=== PATIENT | male | born 1965 | race Caucasian/White ===

== ENCOUNTER 2016-06-12 09:34 | Outpatient (CLI) | payer BC ==
[~2016-06-12] VITALS: Ht 180.3 cm; Wt 125.5 kg
[~2016-06-12 09:34] MED LIST: ASPI-664 PO; ATOR40TA68 PO; CARV3.12 PO; FURO20TA3 PO; LISI2.5T59 PO; MIRT45TA PO; PANT40TA4 PO; QUET300T13 PO
[2016-06-12 09:38] VITALS: BP 122/78; PULSE 80; RESP 18; Ht 180.3 cm; Wt 125.5 kg
--- NOTE | 2016-06-12 11:51 | CONS ---
Date/Time of Note Date/Time of Note DATE: 06/12/16 TIME: 10:26 Assessment/Plan Assessment/Plan Additional Assessment/Plan [facility] Initial Consultation Note DATE OF CONSULTATION: 06/12/16 PLACE OF SERVICE: [facility] ASSESSMENT AND PLAN: A very pleasant 50-year-old gentleman, well known to me from his initial and only other visit with us on 06/08/2014 for management of possible gallbladder disease in the setting of ETOH and hep C cirrhosis (no surgery at that time and GB still in place), presenting with a clinical picture worrisome for HCC given rise in AFP as well as his MRI findings. I carefully reviewed all the available data and reasoning behind my concerns, options of treatment including surgical resection, consideration for liver transplant, local therapy (TACE, radioembolization, ablative therapies, etc), and systemic chemotherapy. Answered all of patient's and 's questions and I believe they understand and wish to proceed. With above assessment, I recommended the followin. Schedule for laparoscopic, possible open, partial hepatectomy, possible cholecystectomy, with intraoperative ultrasound and possible biopsy 2. Start process for possible TACE in case surgery not an option 3. Start liver transplant evaluation process 4. Oncology consultation 5. Multidisciplinary tumor board presentation 6. Preop clearance with cardiology and pulmonary (cardiac testing and pulmonary PFT's and possibly more, depending on findings) 7. Possible endoscopy needs for elevated CEA 8. F/u with Dr. Washington Thank you again for allowing us to participate in the care of this very pleasant gentleman and his wonderful family. If there are any questions, please feel free to call me at [phone]. Updated Clinical Summary: The patient is a very pleasant 50-year-old gentleman, well known to me from his initial and only other visit with us on 06/08/2014 for management of possible gallbladder disease in the setting of ETOH and hep C cirrhosis, initially diagnosed in June 2013 with his hematemesis. Endoscopic gastroduodenoscopy done by Dr. Sim in October of 2013 showed 2+ esophageal varices. He also had a low platelet count in the 70s in 2014, but higher in 2017 (164 on 03/20/16). His other comorbid issues included COPD, previous pneumonia admissions, bronchospasms, gastritis, a number of neurologic and psychiatric issues including schizophrenia, anxiety and depression, and known cholelithiasis. Rising AFP (13 10/2015; 243.2 03/20/16; 555.9 04/17/16). US abd 02/07/16: Cholelithiasis with normal CBD. Hepatomegaly with mild/mod fatty infiltration ( no mention of mass). CT abd w/wo contrast 04/11/16: Liver cirrhosis w/o suspicious arterial enhancing lesion with patent PV. Recanalization of the para- umbilical vein, and cholelithiasis. MRI abd w/wo contrast 06/04/16: Subtle infiltrative approximately 4 cm mass lesion in the anterior inferior aspect of segment 4a, c/w early HCC. + weight loss (20 lbs) and fatigue June 2016. Comorbidities: 1. Known cholelithiasis at least since middle 2013. Questionable gallbladder wall thickening was noted 08/27/2013 and is again seen 04/20/2014. Recanalized umbilical vein with thrombocytopenia, esophageal varices, history of hematemesis, but normal appearing spleen, normal varices on the CT scan and liver that was only abnormal for fatty liver disease on the images, all thought to be cirrhosis from alcohol abuse in the past. 2. Anxiety. 3. Depression. 4. Bipolar disorder. 5. Hypertension. 6. Prior alcohol abuse. 7. Prior recent pneumonias. 8. Gastritis. 9. Skin rash. 10. Urinary symptoms requiring Ghosh catheter placement. 11. COPD. 12. Diastasis recti. 13. Coronary artery disease. 14. BMI 38.6 15. Possible history of hepatitis C where the patient was told he has it, but recent HCV, RNA, PCR was not detected. 16. 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 17. Elevated CA 19-9 (166 04/17/16) 18. Hep C 19. Elevated CEA (8.5 on 04/17/16) 20. Hep A immune 22. Insomnia 23. Chronic ischemic heart disease 24. Mention of Schizophrenia in the chart HISTORY OF PRESENT ILLNESS: Patient is a very pleasant 50 y/o gentleman with above mentioned comorbidities and history whom we were kindly asked to consult regarding management of his newly discovered mass in seg 4a concerning for HCC. I had a chance to meet him as well as his today in the office and do a complete history and physical myself. I also gathered some of my information through the review of the chart. The patient reports having no sig abdominal pain. No other major symptoms other than 20 lb wt loss (unintentional) and fatigue. ALLERGIES: NO KNOWN DRUG ALLERGIES. MEDICATIONS: 1. Seroquel 2. Atenolol 3. ASA 4. Lasix 5. Carvedilol 6. Lisinopril 7. Mirtazapine SOCIAL HISTORY: Patient was born in [place], is and has 1 child. Currently, he is not working due to psychiatric disability. He has smoked every day and has been a heavy smoker, approximately 20 to 39 cigarettes per day in 2014; 1 2016. He does not report any intravenous drug use and he used to drink quite a bit, quit in July of 2013. His heavy drinking was approximately 8 years in duration until he quit. FAMILY HISTORY: There is no significant family history of liver disease, cirrhosis or other gastrointestinal benign or malignant issues. REVIEW OF SYSTEMS: Other than above mentioned, there are no other pertinent positives or pertinent negatives in an otherwise complete 14-point review of systems. PHYSICAL EXAMINATION: GENERAL: The patient appears to be a very pleasant gentleman of descent, appearing stated age, slightly anxious, but otherwise in no acute distress. VITAL SIGNS: AVSS (see EHR); BMI of 38.6 (previously 36.15 May 2014). HEENT: Normocephalic and atraumatic. His extraocular muscles and hearing are grossly intact bilaterally and symmetrically. His sclerae are nonicteric. His oral cavity is clear, and his oral mucosa appeared to be pink and moist. He has relatively fair to poor dentition. NECK: Supple. There is no lymphadenopathy or JVD. There is no submental, submandibular or supraclavicular lymphadenopathy. CHEST: Rises symmetrically with each breath, and he is breathing comfortably. There are no audible wheezes, rales or rhonchi on the gross exam. His pulse is regular and slightly tachycardic on the left wrist. Carotid pulses are palpable bilaterally and symmetrically. His capillary refill is normal and his lower extremities contain very minimally trace edema on both sides. ABDOMEN: Soft, nontender and nondistended. There is no obvious Fraga sign. There is slight discomfort to deep palpation in the left mid quadrant and less so in the right mid quadrant. There are no peritoneal signs or guarding. SKIN: Appears to be pink and feels warm to touch otherwise. NEUROLOGIC: He is awake, alert, and follows commands appropriately. LABORATORY DATA: See office chart for details. Important values reviewed above. 04/08/2014 shows a white blood cell count of 5.1, hemoglobin 14.0, platelets 77. Electrolytes are normal. CO2 of 20, creatinine 0.8, albumin 2.6, total bilirubin 1.2, AST 31, ALT 21, alkaline phosphatase 173. INR 1.2. Alpha fetoprotein 4.4, magnesium 1.7. He has been previously tested for HIV and those have been negative. Hepatitis B surface antigen and antibody were negative. Hepatitis B core antibody was negative. Hepatitis C antibody was reactive and this was on 01/22/2014. Review of his available platelet counts show it to be right in the 70s to 80s range and not above 100 in our available records. in 2017 in the mid 100's. IMAGING: See above. Also: CT from 08/05/2013 showed an enlarged liver, which was mildly nodular in contour. There were no discrete hepatic lesions seen, although the evaluation was limited secondary to motion artifact. No calcified gallstones were seen then, although there is nonspecific diffuse gallbladder wall edema. The main portal vein was patent and measured up to 13 mm in caliber. There were no intrahepatic or extrahepatic biliary ductal dilatation. There was small caliber recanalization of the periumbilical vein. The spleen was not thought to be enlarged and it was 9.4 cm. The pancreas appeared to be unremarkable. Overall, the patient was thought to have suggestive findings of cirrhosis and nonspecific gallbladder wall edema. Ultrasound of the right upper quadrant 04/20/2014 that showed again hepatomegaly with fatty infiltration of the liver, poorly visualized pancreas, abnormal gallbladder wall thickening to 8 mm, and calculus measuring 1.6 x 1.8 cm, borderline dilated common bile duct measuring 7 mm. Previous ultrasound from last year 08/27/2013 again showed thickening of the gallbladder wall without additional sonographic features of cholecystitis. Interestingly, gallstones were not seen on that ultrasound, although they were seen on the CT scan. Please note that I personally reviewed all the available pertinent images myself and I agree in general with their overall findings. Consultation Date/Type/Reason Admit Date/Time Exam/Review of Systems Vital Signs Vitals Vital Signs Date Time Temp Pulse Resp B/P Pulse Ox O2 Delivery O2 Flow Rate FiO2 5/3/17 09:38 97.7 80 18 122/78 94 Room Air MOISES WOODSON M.D. June 12, 2016 11:51
== END 2016-06-12 16:43 | disposition home or self-care (01) ==
LOC: HPC 09:34
PROVIDERS: ATTEND Transplant Surgery
DX: K70.30 Alcoholic cirrhosis of liver without ascites (principal); F31.9 Bipolar disorder, unspecified; J44.9 Chronic obstructive pulmonary disease, unspecified; I25.10 Atherosclerotic heart disease of native coronary artery without angina pectoris; B19.20 Unspecified viral hepatitis C without hepatic coma
CPT/HCPCS: G0463

== ENCOUNTER 2016-07-31 15:20 | Outpatient (CLI) | payer BC ==
[~2016-07-31] VITALS: Ht 180.3 cm; Wt 123.6 kg
[2016-07-31 15:26] VITALS: BP 118/77; PULSE 93; RESP 16; Ht 180.3 cm; Wt 123.6 kg
--- NOTE | 2016-07-31 16:52 | PN ---
Date/Time of Note Date/Time of Note DATE: 07/31/16 TIME: 16:44 Assessment/Plan Assessment/Plan Assessment/Plan [facility] Progress Note Date of Service: 07/31/16 Today's Impression & Plan: A very pleasant 51-year-old gentleman, well known to me from his initial and only other visit with us on 06/08/2014 for management of possible gallbladder disease in the setting of ETOH and hep C cirrhosis (no surgery at that time and GB still in place), presenting with a clinical picture worrisome for HCC given rise in AFP as well as his MRI findings. I had previously carefully reviewed all the available data and reasoning behind my concerns, options of treatment including surgical resection, consideration for liver transplant, local therapy (TACE, radioembolization, ablative therapies, etc), and systemic chemotherapy. After multidisciplinary tumor board presentation, the consensus of the group was agreement that patient is not a surgical candidate and that TACE and liver transplant evaluation should be done. I reviewed with them these recommendations and answered all of patient's and 's questions and I believe they understand and wish to proceed. They also told me that they were approved to go to [facility] for liver transplant evaluation. With above assessment, I recommended the followin. Continue with plans for TACE 2. Cont with liver transplant evaluation process 3. Oncology consultation 4. Continued multidisciplinary care 5. Possible endoscopy needs for elevated CEA 6. F/u with Dr. Washington Thank you again for allowing us to participate in the care of this very pleasant gentleman and his wonderful family. If there are any questions, please feel free to call me at [phone]. Updated Clinical Summary: The patient is a very pleasant 50-year-old gentleman, well known to me from his initial and only other visit with us on 06/08/2014 for management of possible gallbladder disease in the setting of ETOH and hep C cirrhosis, initially diagnosed in June 2013 with his hematemesis. Endoscopic gastroduodenoscopy done by Dr. Sim in October of 2013 showed 2+ esophageal varices. He also had a low platelet count in the 70s in 2014, but higher in 2017 (164 on 03/20/16). His other comorbid issues included COPD, previous pneumonia admissions, bronchospasms, gastritis, a number of neurologic and psychiatric issues including schizophrenia, anxiety and depression, and known cholelithiasis. Rising AFP (13 10/2015; 243.2 03/20/16; 555.9 04/17/16). US abd 02/07/16: Cholelithiasis with normal CBD. Hepatomegaly with mild/mod fatty infiltration ( no mention of mass). CT abd w/wo contrast 04/11/16: Liver cirrhosis w/o suspicious arterial enhancing lesion with patent PV. Recanalization of the para- umbilical vein, and cholelithiasis. MRI abd w/wo contrast 06/04/16: Subtle infiltrative approximately 4 cm mass lesion in the anterior inferior aspect of segment 4a, c/w early HCC. + weight loss (20 lbs) and fatigue June 2016. Comorbidities: 1. Known cholelithiasis at least since middle 2013. Questionable gallbladder wall thickening was noted 08/27/2013 and is again seen 04/20/2014. Recanalized umbilical vein with thrombocytopenia, esophageal varices, history of hematemesis, but normal appearing spleen, normal varices on the CT scan and liver that was only abnormal for fatty liver disease on the images, all thought to be cirrhosis from alcohol abuse in the past. 2. Anxiety. 3. Depression. 4. Bipolar disorder. 5. Hypertension. 6. Prior alcohol abuse. 7. Prior recent pneumonias. 8. Gastritis. 9. Skin rash. 10. Urinary symptoms requiring Ghosh catheter placement. 11. COPD. 12. Diastasis recti. 13. Coronary artery disease. 14. BMI 38.6 15. Possible history of hepatitis C where the patient was told he has it, but recent HCV, RNA, PCR was not detected. 16. 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 17. Elevated CA 19-9 (166 04/17/16) 18. Hep C 19. Elevated CEA (8.5 on 04/17/16) 20. Hep A immune 22. Insomnia 23. Chronic ischemic heart disease 24. Mention of Schizophrenia in the chart Subjective: No major events or complaints; no abd pain and under control with medications; no n/v/d; no sob or cp; + flatus; + BM and normal; + activity; trying to live healthier and has lost a few lbs (intentionally) Objective: Vitals: See below Exam: GENERAL: On exam, the patient was sitting in a chair and appeared to be comfortable and in no acute distress. BMI 38. ABDOMEN: Soft, nontender and nondistended. There are no peritoneal signs or guarding. SKIN: Skin appears to be pink and feels warm to touch. NEUROLOGIC: Patient is awake, alert, and follows commands appropriately. Exam/Review of Systems Vital Signs Vitals Vital Signs Date Time Temp Pulse Resp B/P Pulse Ox O2 Delivery O2 Flow Rate FiO2 07/31/16 15:26 98.0 93 16 118/77 95 Room Air MOIESS WOODSON M.D. Jul 31, 2016 16:52
== END 2016-07-31 16:27 | disposition home or self-care (01) ==
LOC: HPC 15:20
PROVIDERS: ATTEND Transplant Surgery
DX: K76.9 Liver disease, unspecified (principal); K70.30 Alcoholic cirrhosis of liver without ascites; I25.9 Chronic ischemic heart disease, unspecified; I25.10 Atherosclerotic heart disease of native coronary artery without angina pectoris; J44.9 Chronic obstructive pulmonary disease, unspecified; R63.4 Abnormal weight loss; Z68.38 Body mass index [BMI] 38.0-38.9, adult; F20.9 Schizophrenia, unspecified; F41.9 Anxiety disorder, unspecified; F32.9 Major depressive disorder, single episode, unspecified; Z87.01 Personal history of pneumonia (recurrent)
CPT/HCPCS: G0463

== ENCOUNTER 2016-10-28 09:37 | Outpatient (CLI) | payer BC ==
[~2016-10-28] VITALS: Ht 180.3 cm; Wt 116.4 kg
[2016-10-28 09:33] VITALS: BP 114/87; PULSE 89; RESP 18; Ht 180.3 cm; Wt 116.4 kg
--- NOTE | 2016-10-28 17:16 | PN ---
Date/Time of Note Date/Time of Note DATE: 10/28/16 TIME: 16:33 Assessment/Plan Assessment/Plan Assessment/Plan [facility] Progress Note Date of Service: 10/28/16 Today's Impression & Plan: Overall stable with hepatocellular carcinoma of what would believe to be the left lobe of the liver with complication of significant elevation in alpha- fetoprotein as well as recently discovered left portal vein thrombosis in the setting of alcohol induced and hepatitis C induced cirrhosis. Since the patient 's platelet count has reached 200 and given the 8 weeks since the patient's TACE procedure at [facility], I have recommended that we consider surgical evaluation of his abdomen with a full understanding that there is perhaps less than 10% chance of successful completion of the operation and that there is significant chance that we would have to abort the operation at any time during this procedure. Plan would be to enter laparoscopically and do an intraoperative ultrasound of the liver, look at the distribution of the mass intraoperatively as well as assess for presence of metastatic disease. There may be need for biopsying the liver which we can do intra-operatively and if all the needed components are there, to proceed with surgical resection and removal of left side of the liver. I explained all of this in detail to the patient and his and answered all of their questions. Patient and family appear to understand and agreed with plans. Previous assessment that applies today: A very pleasant 51-year-old gentleman, well known to me from his initial visit with us on 06/08/2014 for management of possible gallbladder disease in the setting of ETOH and hep C cirrhosis (no surgery at that time and GB still in place), presenting with a clinical picture worrisome for HCC given rise in AFP as well as his MRI findings. I had previously carefully reviewed all the available data and reasoning behind my concerns, options of treatment including surgical resection, consideration for liver transplant, local therapy (TACE, radioembolization, ablative therapies, etc), and systemic chemotherapy. After multidisciplinary tumor board presentation, the consensus of the group was agreement that patient is not a surgical candidate and that TACE and liver transplant evaluation should be done. I reviewed with them these recommendations and answered all of patient's and 's questions and I believe they understand and wish to proceed. They also told me that they were approved to go to [facility] for liver transplant evaluation (evaluation started July 2016). With above assessment, I recommended the followin. Schedule for laparoscopic, possible open exploration of abdominal cavity with intraoperative ultrasound of the liver, possible biopsy, and possible partial hepatectomy Thank you again for allowing us to participate in the care of this very pleasant gentleman and his wonderful family. If there are any questions, please feel free to call me at [phone]. Updated Clinical Summary: The patient is a very pleasant 51-year-old gentleman, well known to me from his initial and only other visit with us on 06/08/2014 for management of possible gallbladder disease in the setting of ETOH and hep C cirrhosis, initially diagnosed in June 2013 with his hematemesis. Endoscopic gastroduodenoscopy done by Dr. Sim in October of 2013 showed 2+ esophageal varices. He also had a low platelet count in the 70s in 2014, but higher in 2017 (164 on 03/20/16). His other comorbid issues included COPD, previous pneumonia admissions, bronchospasms, gastritis, a number of neurologic and psychiatric issues including schizophrenia, anxiety and depression, and known cholelithiasis. Rising AFP (13 10/2015; 243.2 03/20/16; 555.9 04/17/16). US abd 02/07/16: Cholelithiasis with normal CBD. Hepatomegaly with mild/mod fatty infiltration ( no mention of mass). CT abd w/wo contrast 04/11/16: Liver cirrhosis w/o suspicious arterial enhancing lesion with patent PV. Recanalization of the para- umbilical vein, and cholelithiasis. MRI abd w/wo contrast 06/04/16: Subtle infiltrative approximately 4 cm mass lesion in the anterior inferior aspect of segment 4a, c/w early HCC. + weight loss (20 lbs) and fatigue June 2016. Status post Rylee TACE via RCFA access with coiling of GDA at [facility] ( Dr. Renan Hogan) 08/21/16. CT abd/pelvis [facility] 10/22/16: enlarging worsening infiltrated HCC within L lobe of liver with large associated L intrahepatic portal vein thrombus, worse over time. ? lymphadenopathy in the abdominal cavity. Comorbidities: 1. Known cholelithiasis at least since middle 2013. Questionable gallbladder wall thickening was noted 08/27/2013 and is again seen 04/20/2014. Recanalized umbilical vein with thrombocytopenia, esophageal varices, history of hematemesis, but normal appearing spleen, normal varices on the CT scan and liver that was only abnormal for fatty liver disease on the images, all thought to be cirrhosis from alcohol abuse in the past. Transplant evaluation at [facility] started summer 2016. 2. Anxiety. 3. Depression. 4. Bipolar disorder. 5. Hypertension. 6. Prior alcohol abuse. 7. Prior recent pneumonias. 8. Gastritis. 9. Skin rash. 10. Urinary symptoms requiring Ghosh catheter placement. 11. COPD. 12. Diastasis recti. 13. Coronary artery disease. 14. BMI 35.8 (previously 38.6 early 2016) 15. Possible history of hepatitis C where the patient was told he has it, but recent HCV, RNA, PCR was not detected. 16. 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 17. Elevated CA 19-9 (166 04/17/16) 18. Hep C 19. Elevated CEA (8.5 on 04/17/16) 20. Hep A immune 22. Insomnia 23. Chronic ischemic heart disease. Dr. Combs deemed the patient low to intermediate risk of cardiac events admit liver surgery and did not recommend further cardiac studies or interventions 06/19/2016 24. Mention of Schizophrenia in the chart 25. Severe obstructive sleep apnea with an overall AHI of 31 power resulting oxygen saturation dropped from a baseline of 94% to a low of 80%; successful CPAP titration at 7 cm of water. Study was found to be abnormal and there was loud snoring. 08/16/2016 (Dr. Kalia Angel) 26. Status post Rylee TACE via RCFA access with coiling of GDA at [facility] (Dr. Renan Hogan) 08/21/16. Subjective: No major events or complaints; no major abd pain and under control with medications; no n/v/d; no sob or cp; + flatus; + BM and normal; + activity Objective: Vitals: See below Exam: GENERAL: On exam, the patient was sitting in a chair and appeared to be comfortable and in no acute distress. BMI 35.8. ABDOMEN: Soft, nontender and nondistended. There are no peritoneal signs or guarding. SKIN: Skin appears to be pink and feels warm to touch. NEUROLOGIC: Patient is awake, alert, and follows commands appropriately. Exam/Review of Systems Vital Signs Vitals Vital Signs Date Time Temp Pulse Resp B/P Pulse Ox O2 Delivery O2 Flow Rate FiO2 10/28/16 09:33 97.6 89 18 114/87 97 Room Air MOISES WOODSON M.D. Oct 28, 2016 17:16
== END 2016-10-28 16:13 | disposition home or self-care (01) ==
LOC: HPC 09:37
PROVIDERS: ATTEND Transplant Surgery
DX: C22.0 Liver cell carcinoma (principal); F41.9 Anxiety disorder, unspecified; F32.9 Major depressive disorder, single episode, unspecified; F31.9 Bipolar disorder, unspecified; J44.9 Chronic obstructive pulmonary disease, unspecified; I25.10 Atherosclerotic heart disease of native coronary artery without angina pectoris; B19.20 Unspecified viral hepatitis C without hepatic coma; G47.33 Obstructive sleep apnea (adult) (pediatric)
CPT/HCPCS: G0463

== ENCOUNTER 2016-12-26 12:42 | Inpatient (IN) | payer BC ==
[~2016-12-26] VITALS: Ht 180.3 cm; Wt 113.1 kg
[2016-12-26] MEDS ORDERED: ONDANSETRON 4 MG INJ IV STA (13:22)
[2016-12-26] MEDS ORDERED: morphine 4 MG/ML VIAL IV STA (13:22)
[2016-12-26] MEDS ORDERED: SOD CHLORIDE 0.9% 1,000 ML IV STA (13:22)
[2016-12-26 13:40] LABS: BASOPHILS % 0.2 % (0.0-2.0); EOSINOPHILS # 0.2 10^3/ul (0.0-0.5); EOSINOPHILS % 1.2 % (0.0-7.0); HEMATOCRIT 46.9 % (42.0-52.0); HEMOGLOBIN 16.1 g/dl (14.0-18.0); LYMPHOCYTES # 1.7 10^3/ul (0.8-2.9); LYMPHOCYTES % 13.7 % (15.0-51.0); MEAN CORPUSCULAR HEMOGLOBIN 29.9 pg (29.0-33.0); MEAN CORPUSCULAR HGB CONC 34.3 g/dl (32.0-37.0); MEAN CORPUSCULAR VOLUME 87.2 fl (82.0-101.0); MEAN PLATELET VOLUME 9.8 fl (7.4-10.4); MONOCYTE # 1.1 10^3/ul (0.3-0.9); MONOCYTES % 8.6 % (0.0-11.0); NEUTROPHIL # 9.3 10^3/ul (1.6-7.5); NEUTROPHILS % 75.8 % (39.0-77.0); PLATELET COUNT 258 10^3/UL (140-415); RED BLOOD COUNT 5.38 10^6/ul (4.70-6.10); RED CELL DISTRIBUTION WIDTH 14.9 % (11.5-14.5); WHITE BLOOD COUNT 12.3 10^3/ul (4.8-10.8)
--- NOTE | 2016-12-26 13:49 | ERD ---
ER Documentation Chief Complaint Chief Complaint pt bib with c/o abd pain x 3 wks ROS All systems reviewed and are negative except as per history of present illness. Medications Home Meds Reported Medications Quetiapine Fumarate* (Quetiapine Fumarate*) 200 Mg Tablet, 200 MG PO HS, TAB 12/26/16 Quetiapine Fumarate* (Quetiapine Fumarate*) 400 Mg Tablet, 800 MG PO HS, TAB 12/26/16 Aspirin (Low Dose Aspirin) 81 Mg Tablet.dr, 81 MG PO DAILY, #30 TAB 01/30/16 Pantoprazole* (Pantoprazole*) 40 Mg Tablet.dr, 40 MG PO AC BREAKFAST, TAB 01/30/16 Mirtazapine (Mirtazapine) 45 Mg Tab.rapdis, 45 MG PO QHS 01/02/16 Lisinopril* (Lisinopril*) 2.5 Mg Tablet, 2.5 MG PO DAILY, #30 TAB 03/07/15 Carvedilol* (Coreg*) 3.125 Mg Tablet, 3.125 MG PO BID, #60 TAB 03/07/15 Atorvastatin* (Atorvastatin*) 40 Mg Tablet, 40 MG PO QHS, #30 TAB 03/07/15 Discontinued Reported Medications Quetiapine Fumarate* (Seroquel*) 300 Mg Tablet, 300 MG PO DAILY, TAB 01/30/16 Furosemide* (Furosemide*) 20 Mg Tablet, 20 MG PO BID, #30 TAB 03/07/15 Allergies Allergies: Coded Allergies: No Known Allergy (Unverified , 01/30/16) PMhx/Soc History of Surgery: Yes Anesthesia Reaction: No Hx Neurological Disorder: No Hx Respiratory Disorders: No Hx Cardiac Disorders: No Hx Psychiatric Problems: No Hx Miscellaneous Medical Probl: No Hx Alcohol Use: No Hx Substance Use: No Hx Tobacco Use: No Physical Exam Vitals Vital Signs Date Time Temp Pulse Resp B/P Pulse Ox O2 Delivery O2 Flow Rate FiO2 12/26/16 18:40 94 19 120/84 95 Room Air 12/26/16 16:52 102 18 113/78 97 Room Air 12/26/16 12:45 97.7 97 16 112/76 98 Physical Exam Const: [] Mild to moderate distress Head: Atraumatic Eyes: Normal Conjunctiva ENT: Normal External Ears, Nose and Mouth except except dragon say the word except for dried blood on lower face. Neck: Full range of motion..~ No meningismus. Resp: Clear to auscultation bilaterally Cardio: Regular rate and rhythm, no murmurs Abd: Soft, mild to moderate tenderness to palpation o of the epigastrium, normal bowel sounds, nondistended s Skin: No petechiae or rashes Back: No midline or flank tenderness Ext: No cyanosis, or edema Neur: Awake and alert 3, no focal deficits Psych: Normal Mood and Affect Result Diagram: 12/26/16 1322 12/26/16 1322 Results 24 hrs Laboratory Tests Test 12/26/16 13:22 12/26/16 15:20 White Blood Count 12.310^3/ul Red Blood Count 5.3810^6/ul Hemoglobin 16.1g/dl Hematocrit 46.9% Mean Corpuscular Volume 87.2fl Mean Corpuscular Hemoglobin 29.9pg Mean Corpuscular Hemoglobin Concent 34.3g/dl Red Cell Distribution Width 14.9% Platelet Count 56950^3/UL Mean Platelet Volume 9.8fl Neutrophils % 75.8% Lymphocytes % 13.7% Monocytes % 8.6% Eosinophils % 1.2% Basophils % 0.2% Nucleated Red Blood Cells % 0.0/100WBC Neutrophils # 9.310^3/ul Lymphocytes # 1.710^3/ul Monocytes # 1.110^3/ul Eosinophils # 0.210^3/ul Basophils # 0.010^3/ul Nucleated Red Blood Cells # 0.010^3/ul Sodium Level 137mmol/L Potassium Level 5.2mmol/L Chloride Level 100mmol/L Carbon Dioxide Level 28mmol/L Anion Gap 14 Blood Urea Nitrogen 16mg/dl Creatinine 0.66mg/dl Glucose Level 111mg/dl Lactic Acid Level 1.4mmol/L Calcium Level 9.5mg/dl Total Bilirubin 0.7mg/dl Direct Bilirubin 0.00mg/dl Indirect Bilirubin 0.7mg/dl Aspartate Amino Transf (AST/SGOT) 61IU/L Alanine Aminotransferase (ALT/SGPT) 30IU/L Alkaline Phosphatase 153IU/L Troponin I < 0.012ng/ml Total Protein 8.2g/dl Albumin 3.8g/dl Globulin 4.40g/dl Albumin/Globulin Ratio 0.86 Lipase 2400U/L Urine Color YELLOW Urine Clarity CLEAR Urine pH 6.0 Urine Specific [place] > 1.060 Urine Ketones NEGATIVEmg/dL Urine Nitrite NEGATIVEmg/dL Urine Bilirubin NEGATIVEmg/dL Urine Urobilinogen 2+mg/dL Urine Leukocyte Esterase NEGATIVELeu/ul Urine Hemoglobin NEGATIVEmg/dL Urine Glucose NEGATIVEmg/dL Urine Total Protein NEGATIVEmg/dl Current Medications Medications (Trade) Dose Ordered Sig/Jerrod Route PRN Reason Start Time Stop Time Status Last Admin Dose Admin Sodium Chloride (NS) 1,000 ml @ 1,000 mls/hr Q1H STAT IV 12/26/16 13:22 12/26/16 14:21 DC 12/26/16 13:55 Morphine Sulfate (morphine) 4 mg ONCE STAT IV 12/26/16 13:22 12/26/16 13:24 DC 12/26/16 13:55 Ondansetron HCl (Zofran Inj) 4 mg ONCE STAT IV 12/26/16 13:22 12/26/16 13:24 DC 12/26/16 13:45 Hydromorphone HCl (Dilaudid) 1 mg ONCE STAT IV 12/26/16 14:08 12/26/16 14:09 DC 12/26/16 14:17 Iohexol 150 ml 150 ml STK-MED ONCE .ROUTE 12/26/16 14:32 12/26/16 14:33 DC 12/26/16 15:03 Sodium Chloride 100 ml @ ud STK-MED ONCE .ROUTE 12/26/16 14:32 12/26/16 14:33 DC 12/26/16 15:03 Sodium Chloride (NS) 1,000 ml @ 1,000 mls/hr Q1H ONCE IV 12/26/16 15:30 12/26/16 16:29 DC 12/26/16 15:53 Hydromorphone HCl 1 mg 1 mg ONCE STAT IV 12/26/16 15:08 12/26/16 15:09 DC 12/26/16 15:25 Sodium Chloride (NS) 1,000 ml @ 1,000 mls/hr Q1H ONCE IV 12/26/16 17:30 12/26/16 18:29 DC Heparin Sodium (Porcine) 5000 unit 5,000 unit ONCE STAT IV 12/26/16 17:33 12/26/16 17:35 DC 11/16/17 18:01 Heparin Sodium (Porcine) (Heparin 31436 Units/250 ml) 250 ml @ 0 mls/hr ONCE STAT IV 12/26/16 17:33 12/26/16 17:35 DC 12/26/16 18:01 Ondansetron HCl (Zofran Inj) 4 mg BRIDGE ORDER PRN IV NAUSEA AND/OR VOMITING 12/26/16 19:00 12/27/16 18:59 Acetaminophen (Tylenol Tab) 650 mg ER BRIDGE PRN PO MILD PAIN/FEVER 12/26/16 19:00 12/27/16 18:59 Hydromorphone HCl (Dilaudid) 1 mg ONCE STAT IV 12/26/16 20:01 12/26/16 20:02 DC 12/26/16 20:02 Procedures/MDM Pancreatitis and portal vein thrombosis. Severe abdominal pain initially treated with morphine followed by Dilaudid for pain relief. Required doses of Dilaudid as this would wear off he would had continued pain. Given 2 L of normal saline. Spoke with Dr. Cameron who will see the patient on consult. Also spoke with Dr. Jurado, recommended anticoagulation and he will see the patient on consult as well. Started the patient on heparin. Did have occasional tachycardia on the monitor. Otherwise the patient is being admitted in serious condition. Panel Dr. Kate will be admitting. CT abdomen pelvis interpretation: Inflammation surrounding the stomach pancreas and liver. Cirrhotic liver. Thrombosis of the portal vein, small mass in pancreas., No intestinal obstruction, no free air perforation, no fractures. Right upper quadrant ultrasound interpretation: Gallstones without evidence of ductal obstruction. Cirrhotic liver Departure Diagnosis: Primary Impression: Portal vein thrombosis Additional Impressions: Pancreatitis, acute Abdominal pain Condition: Serious PERLITA JAQUEZ DO Dec 26, 2016 13:49
[2016-12-26 13:58] LABS: ALANINE AMINOTRANSFERASE 30 IU/L (13-69); ALBUMIN 3.8 g/dl (3.3-4.9); ALBUMIN/GLOBULIN RATIO 0.86; ALKALINE PHOSPHATASE 153 IU/L (42-121); ANION GAP 14 (8-16); ASPARTATE AMINO TRANSFERASE 61 IU/L (15-46); BILIRUBIN,INDIRECT 0.7 mg/dl (0-1.1); BILIRUBIN,TOTAL 0.7 mg/dl (0.2-1.3); BLOOD UREA NITROGEN 16 mg/dl (7-20); CALCIUM 9.5 mg/dl (8.4-10.2); CARBON DIOXIDE 28 mmol/L (21-31); CHLORIDE 100 mmol/L (97-110); CREATININE 0.66 mg/dl (0.61-1.24); GLUCOSE 111 mg/dl (70-220); POTASSIUM 5.2 mmol/L (3.5-5.1); SODIUM 137 mmol/L (135-144); TOTAL PROTEIN 8.2 g/dl (6.1-8.1)
[2016-12-26] MEDS ORDERED: HYDROmorphONE 1 MG/ML SYG IV STA ×3 (14:08→20:01)
[2016-12-26 14:16] LABS: TROPONIN-I < 0.012 ng/ml (0.00-0.12)
[2016-12-26] MEDS ORDERED: QUET400T11 PO (14:27)
[2016-12-26] MEDS ORDERED: QUET200T27 PO (14:28)
[2016-12-26] MEDS ORDERED: SOD CHLORIDE 0.9% 100 ML ONE (14:32)
[2016-12-26] MEDS ORDERED: IOHEXOL 300MG/ML 150 ML BTL ONE (14:32)
--- NOTE | 2016-12-26 15:07 | RADRPT ---
PROCEDURE: CT ABDOMEN AND PELVIS WITH IV CONTRAST. CLINICAL INDICATION: Abdominal pain TECHNIQUE: CT scan of the abdomen and pelvis without contrast was performed on a multidetector hig h-resolution CT scanner following the use of IV contrast. Coronal and sagittal reformatted images we re obtained from the axial source images. Images were reviewed on a high-resolution PACS workstation . The total exam CTDI equals 22.5 mGy and the total exam DLP equals 1486 mGy-cm. One or more of the following dose reduction techniques were used: Automated exposure control. Adjustment of the mA and/or kV according to patient size. Use of iterative reconstruction technique. DICOM images are available. COMPARISON: US OUTSIDE STUDY 09/26/2015 FINDINGS: CT abdomen: Lung bases are clear. Heart size is within normal limits. There is no significant pericardial effusi on. Hepatic morphology demonstrates nodular appearance of the borders of the liver. Gallstones are noted within the gallbladder. No evidence of intrahepatic or extrahepatic dilatation. There is mild perih epatic and right pericolic fluid. There is a 2.4 cm thrombus within the main portal vein. The left p ortal vein is not clearly identified. The spleen is unremarkable. There is a 1.9 cm hypodense lesion within the head of the pancreas with adjacent metallic surgical clips. Both adrenal glands are within limits. Both kidneys are normal anatomic position. No obstruction hydronephrosis. The visualized GI tract demonstrates normal caliber loops of small and large bowel. No evidence of b owel obstruction. The appendix is w Within normal limits. There is thickening of the gomez of the di stal stomach with mild adjacent fat stranding. Atherosclerotic calcification of the aorta is identified. No significant retroperitoneal lymphadenop athy. CT pelvis: The bladder is within limits. Small amount free fluid within the pelvis. Prostate gland is within li mits. No same pelvic lymphadenopathy. The visualized osseous structures demonstrates multilevel degenerative disease of the spine and grad e 1 retrolisthesis of L2-L3. IMPRESSION: 1. NODULAR APPEARANCE OF THE BORDERS LIVER, CONSISTENT WITH LIVER CIRRHOSIS. 2. 2.4 CM THROMBUS WITHIN THE MAIN PORTAL VEIN. The left portal vein is not clearly identified. Shahram mmend follow-up CT scan following a three-phase liver protocol. 3. Cholelithiasis. 4. Thickening of the gomez of the distal stomach with adjacent fat stranding, cannot exclude underly ing inflammation. 5. 1.9 CM HYPODENSE LESION WITHIN THE HEAD OF THE PANCREAS, with adjacent metallic clips. Cannot exc lude the possibility of cystic neoplasm. Correlate with clinical history. 6. No evidence of bowel obstruction. The appendix is within normal limits. 7. Free fluid within the pelvis. 8. Other incidental findings as described above. RPTAT: AAPP Physician Onel Date Time Electronically viewed and signed by Physician Onel on 12/26/2016 15:07 ANDREA/
[2016-12-26] MEDS ORDERED: SOD CHLORIDE 0.9% 1,000 ML IV ONE ×2 (15:30→17:30)
[2016-12-26 16:02] LABS: ADD UMIC NO; UR ASCORBIC ACID NEGATIVE (NEGATIVE); UR BILIRUBIN (Dip) NEGATIVE (NEGATIVE); UR BLOOD (Dip) NEGATIVE (NEGATIVE); UR CLARITY CLEAR (CLEAR); UR COLOR YELLOW (YELLOW); UR GLUCOSE (Dip) NEGATIVE (NEGATIVE); UR KETONES (Dip) NEGATIVE (NEGATIVE); UR LEUKOCYTE ESTERASE (Dip) NEGATIVE Leu/ul (NEGATIVE); UR NITRITE (Dip) NEGATIVE (NEGATIVE); UR SPECIFIC GRAVITY (Dip) > 1.060 (1.003-1.030); UR TOTAL PROTEIN (Dip) NEGATIVE (NEGATIVE); UR UROBILINOGEN (Dip) 2+ mg/dL (NEGATIVE)
--- NOTE | 2016-12-26 16:14 | RADRPT ---
PROCEDURE: US right upper quadrant abdomen CLINICAL INDICATION: Abdominal pain. TECHNIQUE: Multiple real-time images were acquired of the abdomen right upper quadrant COMPARISON: Abdomen ultrasound 02/07/2016. FINDINGS: The liver is at the upper limits of normal in size on the current study. Liver parenchyma diffuse he terogeneity and nodularity of the liver surface. Main portal vein luminal echogenic material corres ponds to the filling defect seen on the recent CT scan. The patent portions of the main portal vein have hepatopetal blood flow. The main portal vein is slightly enlarged. Cholelithiasis again identified; gallbladder lumen echogenic material could be secondary to sludge a nd/or artifact. There is no abnormal pericholecystic fluid or gallbladder wall thickening. No int rahepatic or extrahepatic bile duct dilation is seen. The common bile duct measures 4.9 mm in minesh l dimension. The pancreas is obscured by overlying bowel gas and thus not evaluable. The right kidney measures 10.8 cm in length. The visualized right kidney is unremarkable. No right h ydronephrosis detected. Small amount of ascites seen. No other significant interval changes detected. IMPRESSION: 1. Cholelithiasis without sonographic evidence of cholecystitis. The pancreas is obscured by overly ing bowel gas and thus not evaluable; the previously noted pancreas abnormality is thus not able to be assessed on the current sonogram. 2. Partially occlusive filling defect within the enlarged main portal vein corresponds to the abnor mality seen on the recent CT scan and likely is secondary to partially occlusive thrombosis. 3. Liver parenchyma diffuse heterogeneity and nodularity of the liver surface most likely secondary to chronic liver disease of uncertain etiology. Small amount of ascites. RPTAT: TT Physician Davin Date Time Electronically viewed and signed by Physician Davin on 12/26/2016 16:14 KUMAR/
[2016-12-26] MEDS ORDERED: HEPARIN 1000 UNITS/ML 10 ML INJ IV STA (17:33)
[2016-12-26] MEDS ORDERED: HEPARIN 25000 UNITS/250 ML 250 ML IV STA (17:33)
[2016-12-26] MEDS ORDERED: ACETAMINOPHEN 325 MG TAB PO PRN (19:00)
[2016-12-26] MEDS ORDERED: ONDANSETRON 4 MG INJ IV PRN (19:00)
[2016-12-26 21:15] VITALS: BP 114/67; PULSE 91; RESP 19
[2016-12-26 21:17] VITALS: PULSE 90
[2016-12-26 21:33] VITALS: Ht 180.3 cm; Wt 113.1 kg
[2016-12-26 21:41] LABS: HEMATOCRIT 39.3 % (42.0-52.0); HEMOGLOBIN 13.3 g/dl (14.0-18.0)
[2016-12-26] MEDS ORDERED: NACL 0.9% 3 ML SYG IV SCH (22:00)
[2016-12-26] MEDS ORDERED: HYDROmorphONE 1 MG/ML SYG IV PRN (22:00)
[2016-12-26] MEDS ORDERED: HYDROmorphONE 2 MG/ML SYG IV PRN (22:32)
[2016-12-26] MEDS: ONDANSETRON 4 MG INJ IV PRN (22:43)
[2016-12-26] MEDS: SOD CHLORIDE 0.9% 1,000 ML IV SCH (23:06)
[2016-12-26 23:50] VITALS: BP 99/70; RESP 20
[2016-12-27] VITALS (11 sets, daily range): BP systolic 100–154; BP diastolic 68–95; PULSE 73–98; RESP 19–20
[2016-12-27] MEDS ORDERED: HEPARIN 25000 UNITS/250 ML 250 ML IV SCH
[2016-12-27] MEDS ORDERED: HYDROmorphONE 0.5 MG/0.5 ML SYG IV ONE (00:28)
[2016-12-27] MEDS ORDERED: GUAIFENESIN/DM 5ML CUP PO ONE (00:30)
[2016-12-27] MEDS: HYDROmorphONE 2 MG/ML SYG IV PRN ×7 (04:25→18:25)
[2016-12-27] MEDS: SOD CHLORIDE 0.9% 1,000 ML IV SCH ×4 (04:27→21:24)
[2016-12-27] MEDS ORDERED: PANTOPRAZOLE 40 MG INJ IV SCH (06:00)
[2016-12-27] MEDS: METOCLOPRAMIDE 10 MG INJ IV PRN ×3 (06:11→18:25)
[2016-12-27] MEDS: HYDROmorphONE 0.5 MG/0.5 ML SYG IV PRN ×2 (08:07→10:48)
[2016-12-27 08:27] LABS: BASOPHILS % 0.3 % (0.0-2.0); EOSINOPHILS # 0.2 10^3/ul (0.0-0.5); HEMATOCRIT 38.1 % (42.0-52.0); HEMOGLOBIN 12.7 g/dl (14.0-18.0); LYMPHOCYTES # 2.4 10^3/ul (0.8-2.9); LYMPHOCYTES % 26.2 % (15.0-51.0); MEAN CORPUSCULAR HEMOGLOBIN 29.5 pg (29.0-33.0); MEAN CORPUSCULAR HGB CONC 33.3 g/dl (32.0-37.0); MEAN CORPUSCULAR VOLUME 88.6 fl (82.0-101.0); MEAN PLATELET VOLUME 10.6 fl (7.4-10.4); MONOCYTES % 10.2 % (0.0-11.0); NEUTROPHIL # 5.7 10^3/ul (1.6-7.5); PLATELET COUNT 199 10^3/UL (140-415); WHITE BLOOD COUNT 9.3 10^3/ul (4.8-10.8)
[2016-12-27 08:57] LABS: ALANINE AMINOTRANSFERASE 32 IU/L (13-69); ALBUMIN 3.1 g/dl (3.3-4.9); ALBUMIN/GLOBULIN RATIO 0.83; ALKALINE PHOSPHATASE 127 IU/L (42-121); ANION GAP 12 (8-16); ASPARTATE AMINO TRANSFERASE 46 IU/L (15-46); BILIRUBIN,INDIRECT 0.8 mg/dl (0-1.1); BILIRUBIN,TOTAL 0.8 mg/dl (0.2-1.3); BLOOD UREA NITROGEN 11 mg/dl (7-20); CALCIUM 8.6 mg/dl (8.4-10.2); CARBON DIOXIDE 24 mmol/L (21-31); CHLORIDE 104 mmol/L (97-110); CREATININE 0.54 mg/dl (0.61-1.24); GLUCOSE 80 mg/dl (70-220); HDL CHOLESTEROL 18 mg/dl (28-71); MAGNESIUM 1.9 mg/dl (1.7-2.5); POTASSIUM 3.9 mmol/L (3.5-5.1); SODIUM 136 mmol/L (135-144); TOTAL PROTEIN 6.8 g/dl (6.1-8.1); TRIGLYCERIDES 51 mg/dl (0-149)
[2016-12-27 08:58] LABS: CHOLESTEROL < 50 mg/dl (100-200)
--- NOTE | 2016-12-27 09:01 | HP ---
Date/Time of Note Date/Time of Note DATE: 12/27/16 TIME: 08:49 Assessment/Plan VTE Prophylaxis VTE Prophylaxis Intervention: heparin Lines/Catheters IV [facility]ter [facility]from [facility] Saline Lock Urinary Cath still in place: No Assessment/Plan Chief Complaint/Hosp Course This is a 51-year-old male being admitted to the telemetry floor for: #1 acute pancreatitis: CT scan did not show any overt evidence of pink otitis however patient had an elevated lipase of 2400. At the current time we will keep the patient n.p.o. provide patient with aggressive IV fluid hydration, Zofran for nausea. As the patient's pain is pretty significant will increase patient's Dilaudid dose to 1.5 mg every 3 hours. #2: Portal vein thrombosis: Patient has a history of this based on his previous admission encounter. The ED discussed with the CT surgeon regarding this process and recommendation was to start patient on heparin. At the current time we will continue heparin drip, with careful monitoring of hemodynamics as patient does have history of liver cirrhosis. CT surgery has been consulted as mentioned earlier. #3 Hepatocellular carcinoma: Patient has a history of alcohol use as well as hepatitis C is found to have elevated alpha-fetoprotein. At the current time he is on the transplant list at [facility]. Will consult GI. Continue to monitor LFTs. #4 Coronary disease: The current time patient is on heparin, will hold aspirin and beta-sapphire at this time secondary to patient's borderline hypotension. Restart cardiac medications as clinically indicated #5 hypertension: At the current time of the patient's blood pressure is borderline hypotensive we will hold his beta-sapphire and lisinopril at this time and resume once patient is more stable. #6 : Psychiatric disorders: Patient has history of anxiety, schizophrenia, bipolar disorder. At the current time will resume patient's Seroquel and mirtazapine. Continue to monitor patient's psychological condition. #7 history of rectal bleed: At the current time patient is not displaying any signs of active bleeding. Will continue monitor hemoglobin. DVT GI prophylaxis: Heparin, PPI Further treatment strategy will be implemented as per the clinical course Problems: HPI/ROS Admit Date/Time Admit Date/Time Dec 26, 2016 at 18:45 Hx of Present Illness Complaint: Abdominal pain 4 days This is a 50-year-old male with a past medical history of hepatocellular carcinoma, coronary artery disease, portal vein thrombosis, , hypertension, his history of hepatitis C, rectal bleeding, anxiety, bipolar disorder, schizophrenia who presents to the ED with 4 days of epigastric pain. Patient states that the pain started approximately 4 days ago and a has got worse. He states has been having nausea and hacking but he has not been able to actually vomit. He states the pain is epigastric in nature. He is currently on Dilaudid 1 mg IV but he is not getting relief from that. Patient states that he is being followed at [facility] for possible liver transplant. Allergies: NKDA Medications: See CALVIN KEMP Const: As per HPI Eyes : No pain discharge or redness or change in visual acuity ENT: No pain, sore throat, congestion, congestion, dysphagia or discharge Respiratory: No shortness of breath, cough, sputum, wheezing, or pleuritic pain Cardiovascular: No chest pain, palpitation, PND, or edema GI : As per HPI Genitourinary: No dysuria, hematuria, flank pain , discharge or CVA tenderness Musculoskeletal: No joint pain, back pain, neck pain, restricted range of motion in neck or joints Skin: No rash, bruising or hives Neuro: No headache, dizziness, syncope, seizure, focal weakness Endocrine: No polyuria, polydipsia, temperature intolerance Psych: No hallucination, depression, anxiety or suicidal ideation PMH/Family/Social Past Medical History hepatocellular carcinoma, coronary artery disease, portal vein thrombosis, , hypertension, his history of hepatitis C, rectal bleeding, anxiety, bipolar disorder, schizophrenia Past Surgical History TIPS procedure, right great toe surgery Family History Significant Family History: cancer (Father: Liver cancer, mom: CHF) Social History Alcohol Use: sober (For 4 years) Smoking Status: Current every day smoker (1 pack per day 20 years) Drug Use: none Exam/Review of Systems Vital Signs Vitals Vital Signs Date Time Temp Pulse Resp B/P Pulse Ox O2 Delivery O2 Flow Rate FiO2 12/27/16 08:43 79 12/27/16 07:48 98.1 19 123/80 95 12/26/16 21:15 Room Air Intake and Output 12/26/16 12/26/16 12/27/16 15:00 23:00 07:00 Intake Total 30 ml Output Total 650 ml Balance -620 ml Exam Exam General: She does sitting in bed in moderate distress from abdominal pain HEENT: Atraumatic, normocephalic. The pupils are equal, round and reactive. Extraocular motor are intact Neck: Supple with full range of motion. No rigidity or meningismus Chest: Nontender Lungs: Clear to auscultation bilaterally no crackles rales or wheezing Heart: Sinus tachycardia Abdomen: Soft, tenderness to palpation over the epigastric region, normal bowel sounds Extremities: Normal to inspection, no edema no cyanosis Neurologic: Normal mental status, speech normal, cranial nerves II through XII are intact, motor and sensory are intact, no focal weakness Psych: No active hallucinations Additional Comments PROCEDURE: CT ABDOMEN AND PELVIS WITH IV CONTRAST. CLINICAL INDICATION: Abdominal pain TECHNIQUE: CT scan of the abdomen and pelvis without contrast was performed on a multidetector high-resolution CT scanner following the use of IV contrast. Coronal and sagittal reformatted images were obtained from the axial source images. Images were reviewed on a high-resolution PACS workstation. The total exam CTDI equals 22.5 mGy and the total exam DLP equals 1486 mGy-cm. One or more of the following dose reduction techniques were used: Automated exposure control. Adjustment of the mA and/or kV according to patient size. Use of iterative reconstruction technique. DICOM images are available. COMPARISON: US OUTSIDE STUDY 09/26/2015 FINDINGS: CT abdomen: Lung bases are clear. Heart size is within normal limits. There is no significant pericardial effusion. Hepatic morphology demonstrates nodular appearance of the borders of the liver. Gallstones are noted within the gallbladder. No evidence of intrahepatic or extrahepatic dilatation. There is mild perihepatic and right pericolic fluid. There is a 2.4 cm thrombus within the main portal vein. The left portal vein is not clearly identified. The spleen is unremarkable. There is a 1.9 cm hypodense lesion within the head of the pancreas with adjacent metallic surgical clips. Both adrenal glands are within limits. Both kidneys are normal anatomic position. No obstruction hydronephrosis. The visualized GI tract demonstrates normal caliber loops of small and large bowel. No evidence of bowel obstruction. The appendix is w Within normal limits. There is thickening of the gomez of the distal stomach with mild adjacent fat stranding. Atherosclerotic calcification of the aorta is identified. No significant retroperitoneal lymphadenopathy. CT pelvis: The bladder is within limits. Small amount free fluid within the pelvis. Prostate gland is within limits. No same pelvic lymphadenopathy. The visualized osseous structures demonstrates multilevel degenerative disease of the spine and grade 1 retrolisthesis of L2-L3. IMPRESSION: 1. NODULAR APPEARANCE OF THE BORDERS LIVER, CONSISTENT WITH LIVER CIRRHOSIS. 2. 2.4 CM THROMBUS WITHIN THE MAIN PORTAL VEIN. The left portal vein is not clearly identified. Recommend follow-up CT scan following a three-phase liver protocol. 3. Cholelithiasis. 4. Thickening of the gomez of the distal stomach with adjacent fat stranding, cannot exclude underlying inflammation. 5. 1.9 CM HYPODENSE LESION WITHIN THE HEAD OF THE PANCREAS, with adjacent metallic clips. Cannot exclude the possibility of cystic neoplasm. Correlate with clinical history. 6. No evidence of bowel obstruction. The appendix is within normal limits. 7. Free fluid within the pelvis. 8. Other incidental findings as described above. RPTAT: AAPP Physician Onel Date Time Electronically viewed and signed by Physician Onel on 12/26/2016 15:07 JL/ CC: PERLITA JAQUEZ DO PROCEDURE: US right upper quadrant abdomen CLINICAL INDICATION: Abdominal pain. TECHNIQUE: Multiple real-time images were acquired of the abdomen right upper quadrant COMPARISON: Abdomen ultrasound 02/07/2016. FINDINGS: The liver is at the upper limits of normal in size on the current study. Liver parenchyma diffuse heterogeneity and nodularity of the liver surface. Main portal vein luminal echogenic material corresponds to the filling defect seen on the recent CT scan. The patent portions of the main portal vein have hepatopetal blood flow. The main portal vein is slightly enlarged. Cholelithiasis again identified; gallbladder lumen echogenic material could be secondary to sludge and/or artifact. There is no abnormal pericholecystic fluid or gallbladder wall thickening. No intrahepatic or extrahepatic bile duct dilation is seen. The common bile duct measures 4.9 mm in maximal dimension. The pancreas is obscured by overlying bowel gas and thus not evaluable. The right kidney measures 10.8 cm in length. The visualized right kidney is unremarkable. No right hydronephrosis detected. Small amount of ascites seen. No other significant interval changes detected. IMPRESSION: 1. Cholelithiasis without sonographic evidence of cholecystitis. The pancreas is obscured by overlying bowel gas and thus not evaluable; the previously noted pancreas abnormality is thus not able to be assessed on the current sonogram. 2. Partially occlusive filling defect within the enlarged main portal vein corresponds to the abnormality seen on the recent CT scan and likely is secondary to partially occlusive thrombosis. 3. Liver parenchyma diffuse heterogeneity and nodularity of the liver surface most likely secondary to chronic liver disease of uncertain etiology. Small amount of ascites. RPTAT: TT Physician Davin Date Time Electronically viewed and signed by Hugo Jiménez Physician on 2016 16:14 JS/ CC: PERLITA JAQUEZ DO Labs Result Diagram: 12/27/16 0740 12/26/16 1322 Medications Medications Current Medications Sodium Chloride (NS) 1,000 ml @ 175 mls/hr Q5H43M IV Last administered on 04:27; Admin Dose 175 MLS/HR; Start 12/26/16 at 22:00 Ondansetron HCl (Zofran Inj) 4 mg Q6H PRN IV NAUSEA AND/OR VOMITING Last administered on 12/26/16 22:43; Admin Dose 4 MG; Start 12/26/16 at 22:00 Pantoprazole (Protonix Iv) 40 mg DAILY@06 IV Last administered on 12/27/16 05 :13; Admin Dose 40 MG; Start 12/27/16 at 06:00 Metoclopramide HCl (Reglan) 10 mg Q6H PRN IV NAUSEA Last administered on 06:11; Admin Dose 10 MG; Start 12/27/16 at 00:30 Hydromorphone HCl (Dilaudid) 2 mg Q3H PRN IV PAIN LEVEL 7-10; Start 12/27/16 at 08:00 Hydromorphone HCl (Dilaudid) 0.5 mg Q2H PRN IV PAIN Last administered on 08:07; Admin Dose 0.5 MG; Start 12/27/16 at 08:00 TAWANA WILEY Dec 27, 2016 09:01
--- NOTE | 2016-12-27 11:16 | CONS ---
Date/Time of Note Date/Time of Note DATE: 12/27/16 TIME: 10:43 Assessment/Plan Assessment/Plan Chief Complaint/Hosp Course Summary Assessment and Plan: Assessment: Acute pancreatitis- on IV fluid, npo, pain management Hepatocellular carcinoma s/p TACE x1 month ago Portal vein thrombosis- Surgery has been consulted, patient on heparin gtt Psychiatric disorders CAD Plan: Keep NPO IVF Pain management will order further lab work-up Pt currently on Heparin gtt for portal vein thrombosis Will continue to monitor H/H Monitor Lipase Patient seen in collaboration with Dr. Cameron Chief Complaint/Reason for Visit: Hepatocellular carcinoma Acute pancreatitis History of Present Illness: This is a 50-year-old male with a past medical history of hepatocellular carcinoma s/p TACE, hypertension, his history of hepatitis C, coronary artery disease, rectal bleeding, anxiety, bipolar disorder, schizophrenia who presents to the ER for progressive abdominal pain. Pt states pain initially started the day after TACE procedure, and has progressively become worse. Patient did go to outside hospital was treated with pain medication and released 2 weeks ago. Pain is located in the epigastric region, described as sharp, lived with pain medication not aggravated by anything in particular. At the time of evaluation patient complains of nausea (on going), epigastric pain, constipation. He denies vomiting, hematemesis, hematochezia, change in bowel habits, dysphagia, or odynophagia. Lab work up shows lipase 2400, HgB 12.7, WBC 9.3, PLT 199, AST 46, ALT 32, total bilirubin 0.8. A CT scan was obtained and reveled portal vein thrombosis, cholelithiasis, thickening of the gomez of the distal stomach with adjacent fat stranding, cannot exclude underlying inflammation, 1.9 CM HYPODENSE LESION WITHIN THE HEAD OF THE PANCREAS, with adjacent metallic clips. Cannot exclude the possibility of cystic neoplasm, free fluid in the pelvis. He is currently NPO, on IVF, pain medication has been increased. Last EGD was less than 2 -4 years ago per patient showing esophageal varices. He states he has never had a colonoscopy. After reviewing past medical records patient is positive for hepatitis C antibody, however RNA is not detected. Plan to continue current regimen, will order additional lab tests. Surgery has been consulted in regards to portal vein thrombosis. Past Medical History: Hepatocellular carcinoma Coronary disease Hypertension Psychiatric disorders History of rectal bleed Liver cirrhosis Esophageal varices Allergies: NKA PHYSICAL EXAMINATION: GENERAL: Well developed, alert & oriented x 3, SKIN: No lesions, stigmata chronic liver disease, no evidence of bleeding diathesis LYMPHATIC: No palpable lymphadenopathy. HEAD: Normocephalic, atraumatic, no tenderness. EYES: Pupils equal reactive to light and accommodation, EARS/NOSE AND THROAT: Ears normal, nose normal, NECK: Supple, no masses, CHEST: Inspection within normal limits. CARDIOVASCULAR: Heart: Regular rate and rhythm, RESPIRATORY: Lungs clear GASTROINTESTINAL AND LIVER: Abdomen: Soft, tenderness, distended, normoactive bowel sounds. Rectal: Deferred. GENITOURINARY: Male genitalia within normal limits. EXTREMITIES: bilateral edema. Problems: Consultation Date/Type/Reason Admit Date/Time Dec 26, 2016 at 18:45 Date of Consultation: Dec 27, 2016 Type of Consultation: GI Reason for Consultation Hepatocellular carcinoma with recent TACE treatment Past Medical History Medical History: other (HCC, Hep C?, Esophageal varices, liver cirrhosis) Social History Alcohol Use: sober (For 4 years) Smoking Status: Current every day smoker (1 pack per day 20 years) Drug Use: none Exam/Review of Systems Vital Signs Vitals Vital Signs Date Time Temp Pulse Resp B/P Pulse Ox O2 Delivery O2 Flow Rate FiO2 12/27/16 08:43 79 12/27/16 07:48 98.1 19 123/80 95 12/26/16 21:15 Room Air Intake and Output 12/26/16 12/26/16 12/27/16 15:00 23:00 07:00 Intake Total 30 ml Output Total 650 ml Balance -620 ml Results Result Diagram: 12/27/16 0740 12/27/16 0740 Results 24 hrs Laboratory Tests Test 12/26/16 13:22 12/26/16 15:20 12/26/16 20:12 12/26/16 21:24 White Blood Count 12.3 #H Red Blood Count 5.38 Hemoglobin 16.1 13.3 L Hematocrit 46.9 39.3 L Mean Corpuscular Volume 87.2 Mean Corpuscular Hemoglobin 29.9 Mean Corpuscular Hemoglobin Concent 34.3 Red Cell Distribution Width 14.9 H Platelet Count 258 Mean Platelet Volume 9.8 Neutrophils % 75.8 Lymphocytes % 13.7 L Monocytes % 8.6 Eosinophils % 1.2 Basophils % 0.2 Nucleated Red Blood Cells % 0.0 Neutrophils # 9.3 H Lymphocytes # 1.7 Monocytes # 1.1 H Eosinophils # 0.2 Basophils # 0.0 Nucleated Red Blood Cells # 0.0 Sodium Level 137 Potassium Level 5.2 H Chloride Level 100 Carbon Dioxide Level 28 Anion Gap 14 Blood Urea Nitrogen 16 Creatinine 0.66 Glucose Level 111 Lactic Acid Level 1.4 Calcium Level 9.5 Total Bilirubin 0.7 Direct Bilirubin 0.00 Indirect Bilirubin 0.7 Aspartate Amino Transf (AST/SGOT) 61 H Alanine Aminotransferase (ALT/SGPT) 30 Alkaline Phosphatase 153 H Troponin I < 0.012 Total Protein 8.2 H Albumin 3.8 Globulin 4.40 H Albumin/Globulin Ratio 0.86 Lipase 2400 H Urine Color YELLOW Urine Clarity CLEAR Urine pH 6.0 Urine Specific [place] > 1.060 H Urine Ketones NEGATIVE Urine Nitrite NEGATIVE Urine Bilirubin NEGATIVE Urine Urobilinogen 2+ H Urine Leukocyte Esterase NEGATIVE Urine Hemoglobin NEGATIVE Urine Glucose NEGATIVE Urine Total Protein NEGATIVE Activated Partial Thromboplast Time > 180.0 *H Test 12/27/16 00:43 12/27/16 07:40 Activated Partial Thromboplast Time 42.2 H 93.7 *H White Blood Count 9.3 # Red Blood Count 4.30 #L Hemoglobin 12.7 L Hematocrit 38.1 L Mean Corpuscular Volume 88.6 Mean Corpuscular Hemoglobin 29.5 Mean Corpuscular Hemoglobin Concent 33.3 Red Cell Distribution Width 15.0 H Platelet Count 199 # Mean Platelet Volume 10.6 H Neutrophils % 61.0 Lymphocytes % 26.2 Monocytes % 10.2 Eosinophils % 2.0 Basophils % 0.3 Nucleated Red Blood Cells % 0.0 Neutrophils # 5.7 Lymphocytes # 2.4 Monocytes # 1.0 H Eosinophils # 0.2 Basophils # 0.0 Nucleated Red Blood Cells # 0.0 Sodium Level 136 Potassium Level 3.9 Chloride Level 104 Carbon Dioxide Level 24 Anion Gap 12 Blood Urea Nitrogen 11 Creatinine 0.54 L Glucose Level 80 Hemoglobin A1c 5.9 Calcium Level 8.6 Magnesium Level 1.9 Total Bilirubin 0.8 Direct Bilirubin 0.00 Indirect Bilirubin 0.8 Aspartate Amino Transf (AST/SGOT) 46 Alanine Aminotransferase (ALT/SGPT) 32 Alkaline Phosphatase 127 H Total Protein 6.8 # Albumin 3.1 L Globulin 3.70 H Albumin/Globulin Ratio 0.83 Triglycerides Level 51 Cholesterol Level < 50 L LDL Cholesterol, Calculated HDL Cholesterol 18 L Cholesterol/HDL Ratio Thyroid Stimulating Hormone (TSH) 2.880 Medications Medications Current Medications Sodium Chloride (NS) 1,000 ml @ 175 mls/hr Q5H43M IV Last administered on 09:40; Admin Dose 175 MLS/HR; Start 12/26/16 at 22:00 Ondansetron HCl (Zofran Inj) 4 mg Q6H PRN IV NAUSEA AND/OR VOMITING Last administered on 12/26/16 22:43; Admin Dose 4 MG; Start 12/26/16 at 22:00 Metoclopramide HCl (Reglan) 10 mg Q6H PRN IV NAUSEA Last administered on 06:11; Admin Dose 10 MG; Start 12/27/16 at 00:30 Hydromorphone HCl (Dilaudid) 2 mg Q3H PRN IV PAIN LEVEL 7-10 Last administered on 12/27/16 09:38; Admin Dose 2 MG; Start 12/27/16 at 08:00 Hydromorphone HCl (Dilaudid) 0.5 mg Q2H PRN IV PAIN Last administered on 08:07; Admin Dose 0.5 MG; Start 12/27/16 at 08:00 Mirtazapine (Remeron) 45 mg QHS PO ; Start 12/27/16 at 21:00 Quetiapine Fumarate (Seroquel) 300 mg HS PO ; Start 12/27/16 at 21:00 Copies To: CC: TRAMAINE CAMERON MDCHRIS Dec 27, 2016 10:56 CHRIS FAJARDO Dec 27, 2016 10:56
[2016-12-27 12:17] LABS: BASOPHIL # 0.1 10^3/ul (0.0-0.1); BASOPHILS % 0.6 % (0.0-2.0); EOSINOPHILS # 0.2 10^3/ul (0.0-0.5); EOSINOPHILS % 1.9 % (0.0-7.0); HEMATOCRIT 39.1 % (42.0-52.0); HEMOGLOBIN 13.4 g/dl (14.0-18.0); LYMPHOCYTES # 2.5 10^3/ul (0.8-2.9); LYMPHOCYTES % 29.7 % (15.0-51.0); MEAN CORPUSCULAR HGB CONC 34.3 g/dl (32.0-37.0); MEAN CORPUSCULAR VOLUME 87.5 fl (82.0-101.0); MONOCYTE # 0.7 10^3/ul (0.3-0.9); MONOCYTES % 8.4 % (0.0-11.0); NEUTROPHIL # 4.9 10^3/ul (1.6-7.5); NEUTROPHILS % 59.2 % (39.0-77.0); PLATELET COUNT 200 10^3/UL (140-415); RED BLOOD COUNT 4.47 10^6/ul (4.70-6.10); RED CELL DISTRIBUTION WIDTH 14.8 % (11.5-14.5); WHITE BLOOD COUNT 8.3 10^3/ul (4.8-10.8)
[2016-12-27 12:40] LABS: INR 1.16; PROTIME 14.9 Sec (12.2-14.2); PT RATIO 1.2
[2016-12-27] MEDS ORDERED: HYDROmorphONE 2 MG/ML SYG IV STA (12:57)
--- NOTE | 2016-12-27 14:04 | PN ---
Date/Time of Note Date/Time of Note DATE: 12/27/16 TIME: 14:01 Assessment/Plan VTE Prophylaxis VTE Prophylaxis Intervention: SCD's Lines/Catheters IV [facility] Saline Lock Urinary Cath still in place: No Assessment/Plan Assessment/Plan 51 yo M with HCC, not a transplant candidate, presents with 3 weeks of abd pain found to have elevated of unclear etiology. Biliary imaging with gallstones but no cholecystitis. No evidence of biliary obstruction/dilation. Imaging notable for ?pancreatic mass? and portal vein thrombus I suppose it's possible that the elevated lipase is related to his pancreatic mass if it is a tumor? PLAN evaluation by pt's hepatobiliary surgeon, Dr Pickett for continuity sake. I do not have access to really any of the patient's prior imaging and therefore do not know if this pancreatic lesion or this portal vein thrombus are new or old appears senior research fellow consulted GI, though I do not believe ERCP is indicated for this patient. nor does there appear to be any compelling indication for MRCP pain control briefly discussed patient with hepatobiliary surgeon. will dc heparin drip and change to asa 81 per his rec. Subjective 24 Hr Interval Summary Free Text/Dictation Pt with a lot of abd pain today previous hx obtained from [facility] patient was actually denied for transplant on December 09 because he has progression of HCC. Has tumor thrombus of L intrahepatic vein. AFP [id number]. Letter also sent to referring physician and to Dr Pickett. Hepatobiliary transplant surgery thought tumor might be amenable to surgical resection Patient was never actually on the transplant list pt is sp TACE last in August Exam/Review of Systems Vital Signs Vitals Vital Signs Date Time Temp Pulse Resp B/P Pulse Ox O2 Delivery O2 Flow Rate FiO2 12/27/16 12:30 73 12/27/16 11:59 98.1 19 132/92 98 12/26/16 21:15 Room Air Intake and Output 12/26/16 12/26/16 12/27/16 14:59 22:59 06:59 Intake Total 30 ml Output Total 650 ml Balance -620 ml Exam uncomfortable no mrg lungs clear abd soft no rashes Results Result Diagram: 12/27/16 1208 12/27/16 0740 Results 24 hrs Laboratory Tests Test 12/26/16 15:20 12/26/16 20:12 12/26/16 21:24 12/27/16 00:43 Urine Color YELLOW Urine Clarity CLEAR Urine pH 6.0 Urine Specific [place] > 1.060 H Urine Ketones NEGATIVE Urine Nitrite NEGATIVE Urine Bilirubin NEGATIVE Urine Urobilinogen 2+ H Urine Leukocyte Esterase NEGATIVE Urine Hemoglobin NEGATIVE Urine Glucose NEGATIVE Urine Total Protein NEGATIVE Activated Partial Thromboplast Time > 180.0 *H 42.2 H Hemoglobin 13.3 L Hematocrit 39.3 L Test 12/27/16 07:40 12/27/16 12:08 White Blood Count 9.3 # 8.3 Red Blood Count 4.30 #L 4.47 L Hemoglobin 12.7 L 13.4 L Hematocrit 38.1 L 39.1 L Mean Corpuscular Volume 88.6 87.5 Mean Corpuscular Hemoglobin 29.5 30.0 Mean Corpuscular Hemoglobin Concent 33.3 34.3 Red Cell Distribution Width 15.0 H 14.8 H Platelet Count 199 # 200 Mean Platelet Volume 10.6 H 10.0 Neutrophils % 61.0 59.2 Lymphocytes % 26.2 29.7 Monocytes % 10.2 8.4 Eosinophils % 2.0 1.9 Basophils % 0.3 0.6 Nucleated Red Blood Cells % 0.0 0.0 Neutrophils # 5.7 4.9 Lymphocytes # 2.4 2.5 Monocytes # 1.0 H 0.7 Eosinophils # 0.2 0.2 Basophils # 0.0 0.1 Nucleated Red Blood Cells # 0.0 0.0 Activated Partial Thromboplast Time 93.7 *H Sodium Level 136 Potassium Level 3.9 Chloride Level 104 Carbon Dioxide Level 24 Anion Gap 12 Blood Urea Nitrogen 11 Creatinine 0.54 L Glucose Level 80 Hemoglobin A1c 5.9 Calcium Level 8.6 Magnesium Level 1.9 Total Bilirubin 0.8 Direct Bilirubin 0.00 Indirect Bilirubin 0.8 Aspartate Amino Transf (AST/SGOT) 46 Alanine Aminotransferase (ALT/SGPT) 32 Alkaline Phosphatase 127 H Total Protein 6.8 # Albumin 3.1 L Globulin 3.70 H Albumin/Globulin Ratio 0.83 Triglycerides Level 51 Cholesterol Level < 50 L LDL Cholesterol, Calculated HDL Cholesterol 18 L Cholesterol/HDL Ratio Thyroid Stimulating Hormone (TSH) 2.880 Prothrombin Time 14.9 H Prothrombin Time Ratio 1.2 INR International Normalized Ratio 1.16 CA 19-9 Antigen 131.0 H Medications Medications Current Medications Sodium Chloride (NS) 1,000 ml @ 175 mls/hr Q5H43M IV Last administered on 09:40; Admin Dose 175 MLS/HR; Start 12/26/16 at 22:00 Ondansetron HCl (Zofran Inj) 4 mg Q6H PRN IV NAUSEA AND/OR VOMITING Last administered on 12/26/16 22:43; Admin Dose 4 MG; Start 12/26/16 at 22:00 Metoclopramide HCl (Reglan) 10 mg Q6H PRN IV NAUSEA Last administered on 12:29; Admin Dose 10 MG; Start 12/27/16 at 00:30 Hydromorphone HCl (Dilaudid) 2 mg Q3H PRN IV PAIN LEVEL 7-10 Last administered on 12/27/16 13:18; Admin Dose 2 MG; Start 12/27/16 at 08:00 Hydromorphone HCl (Dilaudid) 0.5 mg Q2H PRN IV PAIN Last administered on 10:48; Admin Dose 0.5 MG; Start 12/27/16 at 08:00 Mirtazapine (Remeron) 45 mg QHS PO ; Start 12/27/16 at 21:00 Quetiapine Fumarate (Seroquel) 300 mg HS PO ; Start 12/27/16 at 21:00 DIANELYS DUMAS MD Dec 27, 2016 14:04
[2016-12-27] MEDS ORDERED: HYDROmorphONE 1 MG/ML SYG IV STA (14:26)
[2016-12-27] MEDS ORDERED: LORAZEPAM 0.5 MG TAB PO STA (14:26)
[2016-12-27] MEDS ORDERED: DOCUSATE SODIUM 100 MG CAP PO PRN (14:30)
[2016-12-27] MEDS ORDERED: BISACODYL 10 MG SUPP PR PRN (14:30)
[2016-12-27] MEDS ORDERED: HYDROmorphONE 4 MG/ML SYG IV PRN (14:30)
[2016-12-27] MEDS ORDERED: NALOXONE (0.4 MG/ML) INJ IV PRN (15:00)
[2016-12-27 18:06] LABS: BASOPHILS % 0.2 % (0.0-2.0); EOSINOPHILS # 0.1 10^3/ul (0.0-0.5); EOSINOPHILS % 0.5 % (0.0-7.0); HEMATOCRIT 40.2 % (42.0-52.0); HEMOGLOBIN 13.6 g/dl (14.0-18.0); LYMPHOCYTES # 1.3 10^3/ul (0.8-2.9); LYMPHOCYTES % 12.8 % (15.0-51.0); MEAN CORPUSCULAR HGB CONC 33.8 g/dl (32.0-37.0); MEAN CORPUSCULAR VOLUME 88.5 fl (82.0-101.0); MEAN PLATELET VOLUME 9.7 fl (7.4-10.4); MONOCYTE # 0.9 10^3/ul (0.3-0.9); MONOCYTES % 8.8 % (0.0-11.0); NEUTROPHIL # 7.6 10^3/ul (1.6-7.5); NEUTROPHILS % 77.4 % (39.0-77.0); PLATELET COUNT 192 10^3/UL (140-415); RED BLOOD COUNT 4.54 10^6/ul (4.70-6.10); RED CELL DISTRIBUTION WIDTH 14.5 % (11.5-14.5); WHITE BLOOD COUNT 9.8 10^3/ul (4.8-10.8)
[2016-12-27] MEDS ORDERED: QUETIAPINE 100 MG TAB PO SCH ×2 (21:00)
[2016-12-27] MEDS: QUETIAPINE 100 MG TAB PO SCH (21:16)
[2016-12-27] MEDS: MIRTAZAPINE 15 MG TAB PO SCH (21:16)
[2016-12-28] VITALS (11 sets, daily range): BP systolic 126–149; BP diastolic 62–88; PULSE 62–90; RESP 18–20
[2016-12-28] MEDS: METOCLOPRAMIDE 10 MG INJ IV PRN ×3 (00:27→17:09)
[2016-12-28] MEDS: HYDROmorphONE 2 MG/ML SYG IV PRN ×5 (00:27→20:17)
[2016-12-28] MEDS: SOD CHLORIDE 0.9% 1,000 ML IV SCH ×4 (03:14→20:20)
[2016-12-28] MEDS: PANTOPRAZOLE (EC) 40 MG TAB PO SCH (07:35)
[2016-12-28] MEDS: ASPIRIN 81 MG TAB PO SCH (07:35)
[2016-12-28] MEDS ORDERED: ASPIRIN 81 MG TAB ONE (07:41)
[2016-12-28 08:53] LABS: BASOPHILS % 0.1 % (0.0-2.0); EOSINOPHILS # 0.1 10^3/ul (0.0-0.5); EOSINOPHILS % 0.7 % (0.0-7.0); HEMATOCRIT 37.9 % (42.0-52.0); HEMOGLOBIN 12.9 g/dl (14.0-18.0); LYMPHOCYTES # 1.3 10^3/ul (0.8-2.9); LYMPHOCYTES % 14.8 % (15.0-51.0); MEAN CORPUSCULAR HEMOGLOBIN 30.3 pg (29.0-33.0); MEAN PLATELET VOLUME 9.8 fl (7.4-10.4); MONOCYTE # 0.7 10^3/ul (0.3-0.9); NEUTROPHIL # 6.6 10^3/ul (1.6-7.5); NEUTROPHILS % 76.1 % (39.0-77.0); PLATELET COUNT 187 10^3/UL (140-415); RED BLOOD COUNT 4.26 10^6/ul (4.70-6.10); RED CELL DISTRIBUTION WIDTH 14.5 % (11.5-14.5); WHITE BLOOD COUNT 8.7 10^3/ul (4.8-10.8)
[2016-12-28 09:16] LABS: ALBUMIN 3.1 g/dl (3.3-4.9); ALBUMIN/GLOBULIN RATIO 0.79; BILIRUBIN,INDIRECT 0.6 mg/dl (0-1.1); BILIRUBIN,TOTAL 0.6 mg/dl (0.2-1.3); CALCIUM 8.7 mg/dl (8.4-10.2); CREATININE 0.5 mg/dl (0.61-1.24); POTASSIUM 3.5 mmol/L (3.5-5.1)
--- NOTE | 2016-12-28 11:17 | PN ---
Date/Time of Note Date/Time of Note DATE: 12/28/16 TIME: 07:55 Assessment/Plan Lines/Catheters IV Catheter Type (from [facility]): Peripheral IV Ghosh in Place (from [facility]): No Assessment/Plan Assessment/Plan [facility] Progress Note Date of Service: 12/28/16 Today's Impression & Plan: Very pleasant but unfortunate 51 y/o gentleman well known to me with known history of hepatocellular carcinoma of the left lobe of the liver with complication of significant elevation in alpha-fetoprotein as well as recently discovered left portal vein thrombosis in the setting of 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 Very complicated picture concerning for aggressive HCC with progression and without good solution. For now, abdomen does not require acute surgical intervention. Pancreatitis needs to be treated and patient should be monitored in house. I do not believe the clot requires full anticoagulation, specially in the setting of acute pancreatitis. Daily aspirin and prophylactic heparin/Lovenox are likely beneficial. We will check tumor markers and will discuss in a multidisciplinary fashion. Patient will likely need further local therapy to liver (TACE) if we can reasonably rule out outside metastatic HCC. Patient is not an operative candidate for resection due to fear of widespread disease in his liver and perhaps outside. I explained all of this in detail to the patient (no family in the room) and answered all of their questions. Patient appeared to understand and agreed with plans. Previous assessments that apply today: A very pleasant 51-year-old gentleman, well known to me from his initial visit with us on 06/08/2014 for management of possible gallbladder disease in the setting of ETOH and hep C cirrhosis (no surgery at that time and GB still in place), presenting with a clinical picture worrisome for HCC given rise in AFP as well as his MRI findings. I had previously carefully reviewed all the available data and reasoning behind my concerns, options of treatment including surgical resection, consideration for liver transplant, local therapy (TACE, radioembolization, ablative therapies, etc), and systemic chemotherapy. After multidisciplinary tumor board presentation, the consensus of the group was agreement that patient is not a surgical candidate and that TACE and liver transplant evaluation should be done. They were approved to go to [facility] for liver transplant evaluation (evaluation started July 2016). Ultimately found not to be eligible for reasons of extent of tumor. With above assessment, I recommended the followin. Keep inhouse and treat for pancreatitis 2. Consider aspirin and prophylactic Lovenox; avoid full anticoagulation 3. Monitor labs 4. May attempt low fat diet 5. Labs in am 6. Tumor markers 7. Multidisciplinary tumor board presentation 8. Consider oncology concentration Thank you again for allowing us to participate in the care of this very pleasant gentleman and his wonderful family. If there are any questions, please feel free to call me at [phone]. Updated Clinical Summary: The patient is a very pleasant 51-year-old gentleman, well known to me from his initial and only other visit with us on 06/08/2014 for management of possible gallbladder disease in the setting of ETOH and hep C cirrhosis, initially diagnosed in June 2013 with his hematemesis. Endoscopic gastroduodenoscopy done by Dr. Sim in October of 2013 showed 2+ esophageal varices. He also had a low platelet count in the 70s in 2014, but higher in 2017 (164 on 03/20/16). His other comorbid issues included COPD, previous pneumonia admissions, bronchospasms, gastritis, a number of neurologic and psychiatric issues including schizophrenia, anxiety and depression, and known cholelithiasis. Rising AFP (13 10/2015; 243.2 03/20/16; 555.9 04/17/16). US abd 02/07/16: Cholelithiasis with normal CBD. Hepatomegaly with mild/mod fatty infiltration ( no mention of mass). CT abd w/wo contrast 04/11/16: Liver cirrhosis w/o suspicious arterial enhancing lesion with patent PV. Recanalization of the para- umbilical vein, and cholelithiasis. MRI abd w/wo contrast 06/04/16: Subtle infiltrative approximately 4 cm mass lesion in the anterior inferior aspect of segment 4a, c/w early HCC. + weight loss (20 lbs) and fatigue June 2016. Status post Rylee TACE via [facility] access with coiling of GDA at [facility] ( Dr. Renan Hogan) 08/21/16. CT abd/pelvis [facility] 10/22/16: enlarging worsening infiltrated HCC within L lobe of liver with large associated L intrahepatic portal vein thrombus, worse over time. ? lymphadenopathy in the abdominal cavity. Transplant evaluation at [facility] rejected listing on 12/09/16 ( absolute contraindication due to extent of tumor). Readmitted to [facility] 12/26/16 with pancreatitis, lesion in pancreas and partially occlusive thrombus in L portal vein. Comorbidities: 1. Known cholelithiasis at least since middle of 2013. Questionable gallbladder wall thickening was noted 08/27/2013 and is again seen 04/20/2014. Recanalized umbilical vein with thrombocytopenia, esophageal varices, history of hematemesis, but normal appearing spleen, normal varices on the CT scan and liver that was only abnormal for fatty liver disease on the images, all thought to be cirrhosis from alcohol abuse in the past. Transplant evaluation at [facility] started summer 2016. Rejected listing on 12/09/16 (absolute contraindication due to extent of tumor). 2. Anxiety. 3. Depression. 4. Bipolar disorder. 5. Hypertension. 6. Prior alcohol abuse. 7. Prior recent pneumonias. 8. Gastritis. 9. Skin rash. 10. Urinary symptoms requiring Ghosh catheter placement. 11. COPD. 12. Diastasis recti. 13. Coronary artery disease. 14. BMI 35.8 (previously 38.6 early 2016) 15. Possible history of hepatitis C where the patient was told he has it, but recent HCV, RNA, PCR was not detected. 16. 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 17. Elevated CA 19-9 (166 04/17/16) 18. Hep C 19. Elevated CEA (8.5 on 04/17/16) 20. Hep A immune 22. Insomnia 23. Chronic ischemic heart disease. Dr. Combs deemed the patient low to intermediate risk of cardiac events admit liver surgery and did not recommend further cardiac studies or interventions 06/19/2016 24. Mention of Schizophrenia in the chart 25. Severe obstructive sleep apnea with an overall AHI of 31 power resulting oxygen saturation dropped from a baseline of 94% to a low of 80%; successful CPAP titration at 7 cm of water. Study was found to be abnormal and there was loud snoring. 08/16/2016 (Dr. Kalia Angel) 26. Status post Rylee TACE via [facility] access with coiling of GDA at [facility] (Dr. Renan Hogan) 08/21/16. 27. Partially occlusive thrombus in L portal vein [facility] 12/26/16 28. Pancreatitis with lesion in pancreas [facility] 12/26/16 Subjective: No major events or complaints; no major abd pain and under control with medications; no n/v/d; no sob or cp; + flatus; + BM and normal; + activity Objective: Vitals: See below SOCIAL HISTORY: Patient was born in [place], is and has 1 child. Currently, he is not working due to psychiatric disability. He has smoked every day and has been a heavy smoker, approximately 20 to 39 cigarettes per day in 2014; 1 2016. He does not report any intravenous drug use and he used to drink quite a bit, quit in July of 2013. His heavy drinking was approximately 8 years in duration until he quit. FAMILY HISTORY: There is no significant family history of liver disease, cirrhosis or other gastrointestinal benign or malignant issues. REVIEW OF SYSTEMS: Other than above mentioned, there are no other pertinent positives or pertinent negatives in an otherwise complete 14-point review of systems. PHYSICAL EXAMINATION: GENERAL: The patient appears to be a very pleasant gentleman of descent, appearing stated age, slightly anxious, but otherwise in no acute distress. VITAL SIGNS: AVSS (see EHR); BMI of 34.8 (previously 36.15 May 2014 and 38.15 Jun 2016). HEENT: Normocephalic and atraumatic. His extraocular muscles and hearing are grossly intact bilaterally and symmetrically. His sclerae are nonicteric. His oral cavity is clear, and his oral mucosa appeared to be pink and moist. He has relatively fair to poor dentition. NECK: Supple. There is no lymphadenopathy or JVD. There is no submental, submandibular or supraclavicular lymphadenopathy. CHEST: Rises symmetrically with each breath, and he is breathing comfortably. There are no audible wheezes, rales or rhonchi on the gross exam. His pulse is regular and slightly tachycardic on the left wrist. Carotid pulses are palpable bilaterally and symmetrically. His capillary refill is normal and his lower extremities contain very minimally trace edema on both sides. ABDOMEN: Soft, nontender and nondistended. There is no obvious Fraga sign. There is slight discomfort to deep palpation in the left mid quadrant and less so in the right mid quadrant. There are no peritoneal signs or guarding. SKIN: Appears to be pink and feels warm to touch otherwise. NEUROLOGIC: He is awake, alert, and follows commands appropriately. LABORATORY DATA: See office chart and EHR for details. Important values reviewed above. 04/08/2014 shows a white blood cell count of 5.1, hemoglobin 14.0, platelets 77. Electrolytes are normal. CO2 of 20, creatinine 0.8, albumin 2.6, total bilirubin 1.2, AST 31, ALT 21, alkaline phosphatase 173. INR 1.2. Alpha fetoprotein 4.4, magnesium 1.7. He has been previously tested for HIV and those have been negative. Hepatitis B surface antigen and antibody were negative. Hepatitis B core antibody was negative. Hepatitis C antibody was reactive and this was on 01/22/2014. Review of his available platelet counts show it to be right in the 70s to 80s range and not above 100 in our available records. in 2017 in the mid 100's. IMAGING: See above. Also: [facility] CT abd/pelvis 12/26/16 IMPRESSION: 1. NODULAR APPEARANCE OF THE BORDERS LIVER, CONSISTENT WITH LIVER CIRRHOSIS. 2. 2.4 CM THROMBUS WITHIN THE MAIN PORTAL VEIN. The left portal vein is not clearly identified. Recommend follow-up CT scan following a three-phase liver protocol. 3. Cholelithiasis. 4. Thickening of the gomez of the distal stomach with adjacent fat stranding, cannot exclude underlying inflammation. 5. 1.9 CM HYPODENSE LESION WITHIN THE HEAD OF THE PANCREAS, with adjacent metallic clips. Cannot exclude the possibility of cystic neoplasm. Correlate with clinical history. 6. No evidence of bowel obstruction. The appendix is within normal limits. 7. Free fluid within the pelvis. 8. Other incidental findings as described above. CT from 08/05/2013 showed an enlarged liver, which was mildly nodular in contour. There were no discrete hepatic lesions seen, although the evaluation was limited secondary to motion artifact. No calcified gallstones were seen then, although there is nonspecific diffuse gallbladder wall edema. The main portal vein was patent and measured up to 13 mm in caliber. There were no intrahepatic or extrahepatic biliary ductal dilatation. There was small caliber recanalization of the periumbilical vein. The spleen was not thought to be enlarged and it was 9.4 cm. The pancreas appeared to be unremarkable. Overall, the patient was thought to have suggestive findings of cirrhosis and nonspecific gallbladder wall edema. Ultrasound of the right upper quadrant 04/20/2014 that showed again hepatomegaly with fatty infiltration of the liver, poorly visualized pancreas, abnormal gallbladder wall thickening to 8 mm, and calculus measuring 1.6 x 1.8 cm, borderline dilated common bile duct measuring 7 mm. Previous ultrasound from last year 08/27/2013 again showed thickening of the gallbladder wall without additional sonographic features of cholecystitis. Interestingly, gallstones were not seen on that ultrasound, although they were seen on the CT scan. Please note that I personally reviewed all the available pertinent images myself and I agree in general with their overall findings. Exam/Review of Systems Vital Signs Vitals Vital Signs Date Time Temp Pulse Resp B/P Pulse Ox O2 Delivery O2 Flow Rate FiO2 12/28/16 08:11 82 12/28/16 04:00 98.7 20 140/88 95 12/26/16 21:15 Room Air Intake and Output 12/27/16 12/27/16 12/28/16 15:00 23:00 07:00 Intake Total 2227 ml 50 ml Output Total 2400 ml 1800 ml Balance -173 ml -1750 ml Results Result Diagram: 12/28/16 0808 12/28/16 0808 MOISES WOODSON M.D. Dec 28, 2016 11:09
--- NOTE | 2016-12-28 11:26 | PN ---
Date/Time of Note Date/Time of Note DATE: 12/28/16 TIME: 11:20 Assessment/Plan VTE Prophylaxis VTE Prophylaxis Intervention: ambulation Lines/Catheters IV C[facility]ter Type (from [facility]): Peripheral IV Urinary Cath still in place: No Assessment/Plan Chief Complaint/Hosp Course Assessment: Acute pancreatitis/pancreatic mass Hepatocellular carcinoma s/p TACE x1 month ago Portal vein thrombosis/and evaluation discontinued? Patient was rejected for liver transplant due to advanced hepatocellular carcinoma History of alcohol and drug use Psychiatric disorder CAD Plan: Reintroduce diet Pain management Oncology management at [facility] Subjective: Course reviewed with nursing staff Patient interviewed and examined All labs, imaging and other results reviewed The patient reports epigastric abdominal pain Was informed of plan of action which will be controlled pain of pancreatitis and continued management from the oncology point of view accuracy Exam: General: well developed, well nourished, alert and oriented x3 , in no acute distress Skin: No lesions, no stigmata chronic liver disease, no evidence of bleeding diathesis Lymphatic: No palpable lymphadenopathy HEENT: No lesions Cardiovascular: Heart: Regular rate and rhythm, no murmurs, gallops or rubs. Peripheral pulses present within normal limits, no cyanosis, clubbing or edemas. No pulsatile abdominal mass Respiratory: Lungs clear to auscultation and percussion, no wheezing, no rubs Gastrointestinal and Liver: Abdomen: Soft, moderate epigastric tenderness, not distended, no hernias, no masses, no organomegaly, no ascites, no guarding, no rebound tenderness, normoactive bowel sounds. Extremities: No cyanosis, clubbing, or edema. Diagnostic Studies: Available data and images were reviewed personally. See reports. Significant results and findings are addressed here or in the assessment and plan. Problems: Exam/Review of Systems Vital Signs Vitals Vital Signs Date Time Temp Pulse Resp B/P Pulse Ox O2 Delivery O2 Flow Rate FiO2 12/28/16 08:11 82 12/28/16 04:00 98.7 20 140/88 95 12/26/16 21:15 Room Air Intake and Output 12/27/16 12/27/16 12/28/16 15:00 23:00 07:00 Intake Total 2227 ml 50 ml Output Total 2400 ml 1800 ml Balance -173 ml -1750 ml Results Result Diagram: 12/28/16 0808 12/28/16 0808 Results 24 hrs Laboratory Tests Test 12/27/16 12:08 12/27/16 14:17 12/27/16 17:31 12/28/16 08:08 White Blood Count 8.3 9.8 8.7 Red Blood Count 4.47 L 4.54 L 4.26 L Hemoglobin 13.4 L 13.6 L 12.9 L Hematocrit 39.1 L 40.2 L 37.9 L Mean Corpuscular Volume 87.5 88.5 89.0 Mean Corpuscular Hemoglobin 30.0 30.0 30.3 Mean Corpuscular Hemoglobin Concent 34.3 33.8 34.0 Red Cell Distribution Width 14.8 H 14.5 14.5 Platelet Count 200 192 187 Mean Platelet Volume 10.0 9.7 9.8 Neutrophils % 59.2 77.4 H 76.1 Lymphocytes % 29.7 12.8 L 14.8 L Monocytes % 8.4 8.8 8.0 Eosinophils % 1.9 0.5 0.7 Basophils % 0.6 0.2 0.1 Nucleated Red Blood Cells % 0.0 0.0 0.0 Neutrophils # 4.9 7.6 H 6.6 Lymphocytes # 2.5 1.3 1.3 Monocytes # 0.7 0.9 0.7 Eosinophils # 0.2 0.1 0.1 Basophils # 0.1 0.0 0.0 Nucleated Red Blood Cells # 0.0 0.0 0.0 Prothrombin Time 14.9 H Prothrombin Time Ratio 1.2 INR International Normalized Ratio 1.16 CA 19-9 Antigen 131.0 H Activated Partial Thromboplast Time > 180.0 *H Sodium Level 137 Potassium Level 3.5 Chloride Level 104 Carbon Dioxide Level 23 Anion Gap 14 Blood Urea Nitrogen 8 Creatinine 0.50 L Glucose Level 75 Calcium Level 8.7 Total Bilirubin 0.6 Direct Bilirubin 0.00 Indirect Bilirubin 0.6 Aspartate Amino Transf (AST/SGOT) 46 Alanine Aminotransferase (ALT/SGPT) 32 Alkaline Phosphatase 129 H Total Protein 7.0 Albumin 3.1 L Globulin 3.90 H Albumin/Globulin Ratio 0.79 Lipase 928 H Medications Medications Current Medications Sodium Chloride (NS) 1,000 ml @ 175 mls/hr Q5H43M IV Last administered on t 07:35; Admin Dose 175 MLS/HR; Start 12/26/16 at 22:00 Ondansetron HCl (Zofran Inj) 4 mg Q6H PRN IV NAUSEA AND/OR VOMITING Last administered on 12/26/16 22:43; Admin Dose 4 MG; Start 12/26/16 at 22:00 Metoclopramide HCl (Reglan) 10 mg Q6H PRN IV NAUSEA Last administered on 07:41; Admin Dose 10 MG; Start 12/27/16 at 00:30 Mirtazapine (Remeron) 45 mg QHS PO Last administered on 12/27/16 21:16; Admin Dose 45 MG; Start 12/27/16 at 21:00 Quetiapine Fumarate (Seroquel) 300 mg HS PO Last administered on 12/27/16 21: 16; Admin Dose 300 MG; Start 12/27/16 at 21:00 Docusate Sodium (Colace) 100 mg BID PRN PO CONSTIPATION Last administered on 07:35; Admin Dose 100 MG; Start 12/27/16 at 14:30 Bisacodyl (Dulcolax Supp) 10 mg DAILY PRN [place] CONSTIPATION; Start 12/27/16 at 14:30 Naloxone HCl (Narcan) 0.4 mg PRN PRN IV DECREASED REPIRATORY RATE; Start 12/27 at 15:00 Aspirin (Aspirin) 81 mg DAILY PO Last administered on 12/28/16 07:35; Admin Dose 81 MG; Start 12/28/16 at 09:00 Hydromorphone HCl (Dilaudid) 2 mg Q3H PRN IV PAIN Last administered on 10:18; Admin Dose 2 MG; Start 12/28/16 at 09:30 TRAMAINE GANN MD Dec 28, 2016 11:26
[2016-12-28] MEDS: NICOTINE (14 MG/24 HR) PATCH TRANSDERM SCH (12:30)
--- NOTE | 2016-12-28 13:41 | PN ---
Date/Time of Note Date/Time of Note DATE: 12/28/16 TIME: 13:39 Assessment/Plan Lines/Catheters IV Catheter Type (from Nrsg): Peripheral IV Ghosh in Place (from Nrsg): No Assessment/Plan Chief Complaint/Hosp Course Patient with pancreatitis portal vein thrombosis Continue antiplatelets Mild anticoagulation if no other contraindications Problems: Subjective 24 Hr Interval Summary Constitutional: improved Pain Control: mild Exam/Review of Systems Vital Signs Vitals Vital Signs Date Time Temp Pulse Resp B/P Pulse Ox O2 Delivery O2 Flow Rate FiO2 12/28/16 12:10 90 12/28/16 12:06 98.3 19 131/74 95 12/26/16 21:15 Room Air Intake and Output 12/27/16 12/27/16 12/28/16 15:00 23:00 07:00 Intake Total 2227 ml 50 ml Output Total 2400 ml 1800 ml Balance -173 ml -1750 ml Exam ENMT: mucosa pink and moist, nl external ears & nose, nl lips & teeth, nl nasal mucosa & septum Neck: non-tender, supple Respiratory: clear to auscultation, normal air movement Cardiovascular: nl pulses, regular rate and rhythm Results Result Diagram: 12/28/16 0808 12/28/16 0808 HORTENCIA WASHBURN MD Dec 28, 2016 13:41
--- NOTE | 2016-12-28 17:46 | PN ---
Date/Time of Note Date/Time of Note DATE: 12/28/16 TIME: 17:39 Assessment/Plan VTE Prophylaxis VTE Prophylaxis Intervention: SCD's Lines/Catheters IV Catheter Type (from Nrs): Peripheral IV Urinary Cath still in place: No Assessment/Plan Assessment/Plan 51 yo M with HCC, not a transplant candidate, presented with 3 weeks of abd pain found to have elevated lipase of unclear etiology. Biliary imaging with gallstones but no cholecystitis. No evidence of biliary obstruction/dilation. Imaging notable for ?pancreatic mass? and portal vein thrombus. per HBS, pancreatic mass potentially represents spread of HCC? PLAN very much appreciate hepatobiliary input for PVT, will cont asa and add prophx dosing LMWH cont pain control and adat for ?pancreatitis no indication for endoscopy Exam/Review of Systems Vital Signs Vitals Vital Signs Date Time Temp Pulse Resp B/P Pulse Ox O2 Delivery O2 Flow Rate FiO2 12/28/16 16:14 84 12/28/16 15:24 98.3 19 132/62 96 12/26/16 21:15 Room Air Intake and Output 12/27/16 12/27/16 12/28/16 15:00 23:00 07:00 Intake Total 2227 ml 50 ml Output Total 2400 ml 1800 ml Balance -173 ml -1750 ml Results Result Diagram: 12/28/16 0808 12/28/16 0808 Results 24 hrs Laboratory Tests Test 12/28/16 08:08 White Blood Count 8.7 Red Blood Count 4.26 L Hemoglobin 12.9 L Hematocrit 37.9 L Mean Corpuscular Volume 89.0 Mean Corpuscular Hemoglobin 30.3 Mean Corpuscular Hemoglobin Concent 34.0 Red Cell Distribution Width 14.5 Platelet Count 187 Mean Platelet Volume 9.8 Neutrophils % 76.1 Lymphocytes % 14.8 L Monocytes % 8.0 Eosinophils % 0.7 Basophils % 0.1 Nucleated Red Blood Cells % 0.0 Neutrophils # 6.6 Lymphocytes # 1.3 Monocytes # 0.7 Eosinophils # 0.1 Basophils # 0.0 Nucleated Red Blood Cells # 0.0 Sodium Level 137 Potassium Level 3.5 Chloride Level 104 Carbon Dioxide Level 23 Anion Gap 14 Blood Urea Nitrogen 8 Creatinine 0.50 L Glucose Level 75 Calcium Level 8.7 Total Bilirubin 0.6 Direct Bilirubin 0.00 Indirect Bilirubin 0.6 Aspartate Amino Transf (AST/SGOT) 46 Alanine Aminotransferase (ALT/SGPT) 32 Alkaline Phosphatase 129 H Total Protein 7.0 Albumin 3.1 L Globulin 3.90 H Albumin/Globulin Ratio 0.79 Lipase 928 H Medications Medications Current Medications Sodium Chloride (NS) 1,000 ml @ 175 mls/hr Q5H43M IV Last administered on 13:58; Admin Dose 175 MLS/HR; Start 12/26/16 at 22:00 Ondansetron HCl (Zofran Inj) 4 mg Q6H PRN IV NAUSEA AND/OR VOMITING Last administered on 12/26/16 22:43; Admin Dose 4 MG; Start 12/26/16 at 22:00 Metoclopramide HCl (Reglan) 10 mg Q6H PRN IV NAUSEA Last administered on 17:09; Admin Dose 10 MG; Start 12/27/16 at 00:30 Mirtazapine (Remeron) 45 mg QHS PO Last administered on 12/27/16 21:16; Admin Dose 45 MG; Start 12/27/16 at 21:00 Quetiapine Fumarate (Seroquel) 300 mg HS PO Last administered on 12/27/16 21: 16; Admin Dose 300 MG; Start 12/27/16 at 21:00 Docusate Sodium (Colace) 100 mg BID PRN PO CONSTIPATION Last administered on 07:35; Admin Dose 100 MG; Start 12/27/16 at 14:30 Bisacodyl (Dulcolax Supp) [address] CONSTIPATION; Start 12/27/16 at 14:30 Naloxone HCl (Narcan) 0.4 mg PRN PRN IV DECREASED REPIRATORY RATE; Start 12/27 at 15:00 Aspirin (Aspirin) 81 mg DAILY PO Last administered on 12/28/16 07:35; Admin Dose 81 MG; Start 12/28/16 at 09:00 Hydromorphone HCl (Dilaudid) 2 mg Q3H PRN IV PAIN Last administered on 17:09; Admin Dose 2 MG; Start 12/28/16 at 09:30 Nicotine (Nicoderm 14 Mg/ 24hr) 1 patch DAILY TRANSDERM ; Start 12/28/16 at 12: 30 DIANELYS DUMAS MD Dec 28, 2016 17:46
[2016-12-28] MEDS: MIRTAZAPINE 15 MG TAB PO SCH (20:15)
[2016-12-28] MEDS: QUETIAPINE 100 MG TAB PO SCH (20:15)
[2016-12-28] MEDS: ONDANSETRON 4 MG INJ IV PRN (20:17)
[2016-12-29] VITALS (8 sets, daily range): BP systolic 123–138; BP diastolic 78–84; PULSE 68–90; RESP 16–20
[2016-12-29] MEDS: HYDROmorphONE 2 MG/ML SYG IV PRN ×2 (02:31→11:58)
[2016-12-29] MEDS: SOD CHLORIDE 0.9% 1,000 ML IV SCH ×3 (02:34→12:01)
[2016-12-29] MEDS: PANTOPRAZOLE (EC) 40 MG TAB PO SCH (06:46)
[2016-12-29] MEDS: NICOTINE (14 MG/24 HR) PATCH TRANSDERM SCH (09:00)
[2016-12-29] MEDS: ASPIRIN 81 MG TAB PO SCH (09:00)
[2016-12-29] MEDS ORDERED: ENOXAPARIN 40 MG/0.4 ML SYG SC SCH (09:00)
--- NOTE | 2016-12-29 09:55 | PN ---
Date/Time of Note Date/Time of Note DATE: 12/29/16 TIME: 09:53 Assessment/Plan VTE Prophylaxis VTE Prophylaxis Intervention: ambulation Lines/Catheters IV Catheter Type (from Nrs): Peripheral IV Urinary Cath still in place: No Assessment/Plan Chief Complaint/Hosp Course Assessment: Acute pancreatitis/pancreatic mass Hepatocellular carcinoma s/p TACE x1 month ago Portal vein thrombosis/and evaluation discontinued? Patient was rejected for liver transplant due to advanced hepatocellular carcinoma History of alcohol and drug use Psychiatric disorder CAD Plan: Continue present management Appears safe for outpatient follow-up from the GI viewpoint Pain management Oncology management at [facility] Subjective: Course reviewed with nursing staff Patient interviewed and examined All labs, imaging and other results reviewed The patient reports resolution of pain He told me he has been in touch with [facility] oncology Tolerating diet without difficulty, eager to go home Exam: General: well developed, well nourished, alert and oriented x3 , in no acute distress Skin: No lesions, no stigmata chronic liver disease, no evidence of bleeding diathesis Lymphatic: No palpable lymphadenopathy HEENT: No lesions Cardiovascular: Heart: Regular rate and rhythm, no murmurs, gallops or rubs. Peripheral pulses present within normal limits, no cyanosis, clubbing or edemas. No pulsatile abdominal mass Respiratory: Lungs clear to auscultation and percussion, no wheezing, no rubs Gastrointestinal and Liver: Abdomen: Soft, minimal epigastric tenderness, not distended, no hernias, no masses, no organomegaly, no ascites, no guarding, no rebound tenderness, normoactive bowel sounds. Extremities: No cyanosis, clubbing, or edema. Diagnostic Studies: Available data and images were reviewed personally. See reports. Significant results and findings are addressed here or in the assessment and plan. Problems: Exam/Review of Systems Vital Signs Vitals Vital Signs Date Time Temp Pulse Resp B/P Pulse Ox O2 Delivery O2 Flow Rate FiO2 12/29/16 08:27 98.4 77 16 138/78 95 12/26/16 21:15 Room Air Intake and Output 12/28/16 12/28/16 12/29/16 15:00 23:00 07:00 Intake Total 2950 ml 1050 ml Output Total 1100 ml 3400 ml Balance 1850 ml -2350 ml Results Result Diagram: 12/28/16 0808 12/28/16 0808 Results 24 hrs Laboratory Tests Test 12/29/16 07:08 Lipase 272 Medications Medications Current Medications Sodium Chloride (NS) 1,000 ml @ 175 mls/hr Q5H43M IV Last administered on 06:51; Admin Dose 175 MLS/HR; Start 12/26/16 at 22:00 Ondansetron HCl (Zofran Inj) 4 mg Q6H PRN IV NAUSEA AND/OR VOMITING Last administered on 12/28/16 20:17; Admin Dose 4 MG; Start 12/26/16 at 22:00 Metoclopramide HCl (Reglan) 10 mg Q6H PRN IV NAUSEA Last administered on 17:09; Admin Dose 10 MG; Start 12/27/16 at 00:30 Mirtazapine (Remeron) 45 mg QHS PO Last administered on 12/28/16 20:15; Admin Dose 45 MG; Start 12/27/16 at 21:00 Quetiapine Fumarate (Seroquel) 300 mg HS PO Last administered on 12/28/16 20: 15; Admin Dose 300 MG; Start 12/27/16 at 21:00 Docusate Sodium (Colace) 100 mg BID PRN PO CONSTIPATION Last administered on 07:35; Admin Dose 100 MG; Start 12/27/16 at 14:30 Bisacodyl (Dulcolax Supp) 10 mg DAILY PRN PA CONSTIPATION; Start 12/27/16 at 14:30 Naloxone HCl (Narcan) 0.4 mg PRN PRN IV DECREASED REPIRATORY RATE; Start 12/27 at 15:00 Aspirin (Aspirin) 81 mg DAILY PO Last administered on 12/28/16 07:35; Admin Dose 81 MG; Start 12/28/16 at 09:00 Hydromorphone HCl (Dilaudid) 2 mg Q3H PRN IV PAIN Last administered on 02:31; Admin Dose 2 MG; Start 12/28/16 at 09:30 Nicotine (Nicoderm 14 Mg/ 24hr) 1 patch DAILY TRANSDERM ; Start 12/28/16 at 12: 30 Enoxaparin Sodium (Lovenox) 40 mg DAILY SC ; Start 12/29/16 at 09:00 TRAMAINE GANN MD Dec 29, 2016 09:55
--- NOTE | 2016-12-29 13:06 | PN ---
Date/Time of Note Date/Time of Note DATE: 12/29/16 TIME: 13:05 Assessment/Plan Lines/Catheters IV Catheter Type (from Nrsg): Peripheral IV Ghosh in Place (from Nrsg): No Assessment/Plan Chief Complaint/Hosp Course Patient with pancreatitis portal vein thrombosis Continue antiplatelets Mild anticoagulation if no other contraindications Problems: Subjective 24 Hr Interval Summary Constitutional: improved Pain Control: mild Exam/Review of Systems Vital Signs Vitals Vital Signs Date Time Temp Pulse Resp B/P Pulse Ox O2 Delivery O2 Flow Rate FiO2 12/29/16 12:30 99.1 71 18 133/84 97 12/26/16 21:15 Room Air Intake and Output 12/28/16 12/28/16 12/29/16 15:00 23:00 07:00 Intake Total 2950 ml 1050 ml Output Total 1100 ml 3400 ml Balance 1850 ml -2350 ml Exam Neck: non-tender, supple Respiratory: clear to auscultation, normal air movement Cardiovascular: nl pulses, regular rate and rhythm Gastrointestinal: nl liver, spleen, non-tender, soft Results Result Diagram: 12/28/16 0808 12/28/16 0808 HORTENCIA WASHBURN MD Dec 29, 2016 13:06
[2016-12-29] MEDS ORDERED: Nicotine (14 Mg/24 Hr) TRANSDERM (14:18)
--- NOTE | 2016-12-29 14:20 | PDOCDIS ---
Discharge Instructions DIAGNOSIS Discharge Diagnosis pancreatitis of unclear etiology, portal vein thrombus CONDITION Patient Condition: Stable HOME CARE INSTRUCTIONS: Special Diet: bland FOLLOW UP/APPOINTMENTS Follow-up Plan Call Dr Pickett's office this week to find out what the next steps will be regarding your liver cancer Office Address [address] [place] [address] [address] [place] [address] Office DIANELYS DUMAS MD Dec 29, 2016 14:20
--- NOTE | 2016-12-29 14:24 | DS ---
Date/Time of Note Date/Time of Note DATE: 12/29/16 TIME: 14:20 Discharge Summary Admission/Discharge Info Admit Date/Time Dec 26, 2016 at 18:45 Discharge Date/Time Discharge Diagnosis pancreatitis of unclear etiology, portal vein thrombus Patient Condition: Stable Consults GI, hepatobiliary surgery, vascular surgery Procedures CT AP 11.16 IMPRESSION: 1. NODULAR APPEARANCE OF THE BORDERS LIVER, CONSISTENT WITH LIVER CIRRHOSIS. 2. 2.4 CM THROMBUS WITHIN THE MAIN PORTAL VEIN. The left portal vein is not clearly identified. Recommend follow-up CT scan following a three-phase liver protocol. 3. Cholelithiasis. 4. Thickening of the gomez of the distal stomach with adjacent fat stranding, cannot exclude underlying inflammation. 5. 1.9 CM HYPODENSE LESION WITHIN THE HEAD OF THE PANCREAS, with adjacent metallic clips. Cannot exclude the possibility of cystic neoplasm. Correlate with clinical history. 6. No evidence of bowel obstruction. The appendix is within normal limits. 7. Free fluid within the pelvis. 8. Other incidental findings as described above. Lipase on admission 2400 -->on discharge 272 Hx of Present Illness Complaint: Abdominal pain 4 days This is a 50-year-old male with a past medical history of hepatocellular carcinoma, coronary artery disease, portal vein thrombosis, , hypertension, his history of hepatitis C, rectal bleeding, anxiety, bipolar disorder, schizophrenia who presents to the ED with 4 days of epigastric pain. Patient states that the pain started approximately 4 days ago and a has got worse. He states has been having nausea and hacking but he has not been able to actually vomit. He states the pain is epigastric in nature. He is currently on Dilaudid 1 mg IV but he is not getting relief from that. Patient states that he is being followed at [facility] for possible liver transplant. Allergies: NKDA Medications: See APR Hospital Course 51 yo M with HCC, not a transplant candidate, presented with 3 weeks of abd pain found to have elevated lipase of unclear etiology. Biliary imaging with gallstones but no cholecystitis. No evidence of biliary obstruction/dilation. Imaging notable for pancreatic head mass and portal vein thrombus. Pt seen by his hepatobiliary surgeon. For his portal vein thrombus, both HBS and vascular surgery advising just continued asa 81. For the pancreatic head lesion, pt's HBS is comfortable with outpatient follow up as pt will require tumor board evaluation. Pt's abd pain was wholly resolved and he was able to tolerate PO without issue at time of discharge. Home Meds Active Scripts [Nicotine (14 Mg/24 Hr)] 1 PATCH PATCH No Conflict Check, 1 PATCH TRANSDERM DAILY for 30 Days, #30 EA Prov:DIANELYS DUMAS MD 12/29/16 Reported Medications Quetiapine Fumarate* (Quetiapine Fumarate*) 400 Mg Tablet, 300 MG PO HS, TAB 12/26/16 Aspirin (Low Dose Aspirin) 81 Mg Tablet.dr, 81 MG PO DAILY, #30 TAB 01/30/16 Pantoprazole* (Pantoprazole*) 40 Mg Tablet.dr, 40 MG PO AC BREAKFAST, TAB 01/30/16 Mirtazapine (Mirtazapine) 45 Mg Tab.rapdis, 45 MG PO QHS 01/02/16 Lisinopril* (Lisinopril*) 2.5 Mg Tablet, 2.5 MG PO DAILY, #30 TAB 03/07/15 Carvedilol* (Coreg*) 3.125 Mg Tablet, 3.125 MG PO BID, #60 TAB 03/07/15 Atorvastatin* (Atorvastatin*) 40 Mg Tablet, 40 MG PO QHS, #30 TAB 03/07/15 Discontinued Reported Medications Quetiapine Fumarate* (Quetiapine Fumarate*) 200 Mg Tablet, 200 MG PO HS, TAB 12/26/16 Quetiapine Fumarate* (Seroquel*) 300 Mg Tablet, 300 MG PO DAILY, TAB 01/30/16 Furosemide* (Furosemide*) 20 Mg Tablet, 20 MG PO BID, #30 TAB 03/07/15 Follow-up Plan Call Dr Pickett's office this week to find out what the next steps will be regarding your liver cancer Office Address [address] [place] [address] [address] [place] [address] Office Primary Care Provider Not On Staff Doctor Time spent on discharge: > 30 minutes Pending Labs Laboratory Tests Test 12/29/16 07:08 Lipase 272U/L (23-300) Copies To: CC: MOISES PICKETT M.D., ELLEN MD Dec 29, 2016 14:24 03/07/15 Discontinued Reported Medications Quetiapine Fumarate* (Quetiapine Fumarate*) 200 Mg Tablet, 200 MG PO HS, TAB 12/26/16 Quetiapine Fumarate* (Seroquel*) 300 Mg Tablet, 300 MG PO DAILY, TAB 01/30/16 Furosemide* (Furosemide*) 20 Mg Tablet, 20 MG PO BID, #30 TAB 03/07/15 Follow-up Plan Call Dr Pickett's office this week to find out what the next steps will be regarding your liver cancer Office Address [address] [place] [address] [address] [place] [address] Office Primary Care Provider Not On Staff Doctor Pending Labs Laboratory Tests Test 12/29/16 07:08 Lipase 272U/L (23-300) Copies To: CC: MOISES PICKETT M.D., ELLEN MD Dec 29, 2016 14:24
[2016-12-29] MEDS ORDERED: HYDR-3498 PO (15:47)
--- NOTE | 2016-12-30 07:31 | CONS ---
DATE OF ADMISSION: 12/26/2016 DATE OF CONSULTATION: REASON FOR CONSULTATION: Portal vein thrombosis. HISTORY OF PRESENT ILLNESS: This is a 51-year-old male with a history of acute pancreatitis based o n a CAT scan, was admitted with the finding of portal vein thrombosis, has been started on heparin. The patient does have a history of rectal bleeding and schizophrenia. PAST MEDICAL HISTORY: Hepatitis C, schizophrenia, anxiety, coronary artery disease, hepatocellular carcinoma, coronary artery disease. PAST SURGICAL HISTORY: None. ALLERGIES: NONE. SOCIAL HISTORY: No smoking, drinking or drug use. MEDICATIONS: List reviewed. PHYSICAL EXAMINATION: VITAL SIGNS: Blood pressure is 154/95, pulse is 93, respirations 18. CARDIOVASCULAR: Normal S1, S2. ABDOMEN: Distended. EXTREMITIES: Warm. LUNGS: Clear. LABORATORY VALUES: Hemoglobin 13.6, white count 9.8, platelet count 192. PTT 180 and a creatinine of 0.54. IMPRESSION: Portal vein thrombosis. RECOMMENDATIONS: Would continue anticoagulation if there is no contraindication. Discussed with th e patient and the referring physicians. Dictated By: HORTENCIA DASH/KAREN Conf#: [id number] DID#: [id number] CC: Halina Chiu;*EndCC*
== END 2016-12-29 16:05 | disposition home or self-care (01) | DRG 438 ==
LOC: E/R 12:42 → MS4 18:45
PROVIDERS: ADMIT Internal Medicine; ATTEND Internal Medicine
DX: K85.90 Acute pancreatitis without necrosis or infection, unspecified (principal); I81 Portal vein thrombosis; C22.0 Liver cell carcinoma; I25.10 Atherosclerotic heart disease of native coronary artery without angina pectoris; I10 Essential (primary) hypertension; F31.9 Bipolar disorder, unspecified; F20.9 Schizophrenia, unspecified; J44.9 Chronic obstructive pulmonary disease, unspecified; K70.30 Alcoholic cirrhosis of liver without ascites; F17.200 Nicotine dependence, unspecified, uncomplicated
CPT/HCPCS: 36415; 74177; 76705; 80053; 80061; 81003; 83036; 83605; 83690; 83735; 84443; 84484; 85014; 85018; 85025; 85610; 85730; 86301; 86850; 86900; 86901; 86920; 87522; 93005; 96374; 96375; 96376; C9113; J1170; J1644; J1650; J2270; J2310; J2405; J2765; J7030; Q9967

== ENCOUNTER 2017-01-03 16:48 | Observation (INO) | payer BC ==
[~2017-01-03] VITALS: Ht 165.1 cm; Wt 107.5 kg
[~2017-01-03 16:48] MED LIST changes: -FURO20TA3 PO; +HYDR-3498 PO; +Nicotine (14 Mg/24 Hr) TRANSDERM; -QUET300T13 PO; +QUET400T11 PO
[2017-01-03] MEDS ORDERED: SOD CHLORIDE 0.9% 1,000 ML IV STA (18:46)
[2017-01-03] MEDS ORDERED: morphine 2 MG INJ IV STA (18:46)
[2017-01-03] MEDS ORDERED: ONDANSETRON 4 MG INJ IV STA (18:46)
[2017-01-03 19:06] LABS: BASOPHIL # 0.1 10^3/ul (0.0-0.1); BASOPHILS % 0.4 % (0.0-2.0); EOSINOPHILS # 0.2 10^3/ul (0.0-0.5); EOSINOPHILS % 1.4 % (0.0-7.0); HEMATOCRIT 47.3 % (42.0-52.0); HEMOGLOBIN 16.4 g/dl (14.0-18.0); LYMPHOCYTES # 2.5 10^3/ul (0.8-2.9); LYMPHOCYTES % 16.9 % (15.0-51.0); MEAN CORPUSCULAR HEMOGLOBIN 29.9 pg (29.0-33.0); MEAN CORPUSCULAR HGB CONC 34.7 g/dl (32.0-37.0); MEAN CORPUSCULAR VOLUME 86.2 fl (82.0-101.0); MEAN PLATELET VOLUME 9.5 fl (7.4-10.4); MONOCYTE # 0.9 10^3/ul (0.3-0.9); MONOCYTES % 5.9 % (0.0-11.0); NEUTROPHILS % 74.8 % (39.0-77.0); PLATELET COUNT 335 10^3/UL (140-415); RED BLOOD COUNT 5.49 10^6/ul (4.70-6.10); RED CELL DISTRIBUTION WIDTH 15.4 % (11.5-14.5); WHITE BLOOD COUNT 14.7 10^3/ul (4.8-10.8)
[2017-01-03 19:26] LABS: ALBUMIN 4.4 g/dl (3.3-4.9); ALBUMIN/GLOBULIN RATIO 0.93; BILIRUBIN,INDIRECT 0.5 mg/dl (0-1.1); BILIRUBIN,TOTAL 0.5 mg/dl (0.2-1.3); CREATININE 0.77 mg/dl (0.61-1.24); POTASSIUM 4.5 mmol/L (3.5-5.1); TOTAL PROTEIN 9.1 g/dl (6.1-8.1)
[2017-01-03] MEDS ORDERED: OXYCODONE/ACETAMINOPHEN (5/325) TAB PO ONE (19:30)
[2017-01-03] MEDS ORDERED: FENTAnyl 50 MCG/ML VIAL IV ONE ×2 (20:00)
[2017-01-03] MEDS ORDERED: METOCLOPRAMIDE 10 MG INJ IV ONE (20:00)
[2017-01-03] MEDS ORDERED: IOHEXOL 300MG/ML 150 ML BTL ONE (20:50)
[2017-01-03] MEDS ORDERED: SOD CHLORIDE 0.9% 100 ML ONE (20:50)
--- NOTE | 2017-01-03 22:13 | RADRPT ---
PROCEDURE: CT abdomen and pelvis with. contrast. CLINICAL INDICATION: Abdominal pain. Hepatitis C. TECHNIQUE: IV contrast enhanced CT examination of the abdomen and pelvis, with axial, sagittal and coronal reformatted images. 100 cc Isovue 300 nonionic IV contrast were employed. Automated dose e xposure control was employed. CTDI: 21.37 mGy and DLP: 1449.07 mGy-cm. COMPARISON: CT abdomen pelvis dated 12/26/2016 FINDINGS: CT abdomen: Bilateral dependent atelectasis. Otherwise, the lung bases are clear. Mild cystic changes at the manisha g bases are nonspecific. The heart size is normal, without pericardial thickening or effusion. The previously seen abdominal ascites is resolved. Faintly visualized dominant left hepatic lobe mass measures 14 x 9 x 6 cm. A 6 x 6 x 4 cm exophytic mass arises from the inferior marginal left hepatic lobe and invades the portal vein at the toro he patis. There is a 3 cm cystic lesion at the head of the pancreas. This previously measured up to abo ut 2 cm on examination dated 12/26/2016. The pancreatic duct measures up to 4 mm. Peripancreatic fat inflammatory changes and mild fluid are seen over the pancreas. Fluid in the lesser sac. Recommend contrast enhanced MRI examination the abdomen for further evaluation. Surgical changes in the region of the pancreatic head. There is likely portal venous hypertension with gastric varices. There is a likely thrombosed umbili geraldo vein. Nodular changes in the liver serosa suggest a degree of cirrhosis. The spleen is normal in size and homogeneous in density. The gallbladder contains gallstones and is contracted. and biliary tree are unremarkable and there is no evidence for biliary dilatation. The adrenal glands are symmetric and normal. There may be a 6 mm fat containing lesion in the right kidn ey suggesting a myelolipoma. Otherwise, the kidneys are symmetrically unremarkable as well. No renal calculus or obstructive uropathy or mass lesion is seen. The aorta is of normal caliber. Aortic vascular calcifications are present. There is no retroperit molina lymphadenopathy. The bowel and mesentery, as visualized, are equally unremarkable. CT pelvis: The small bowel loops situated within the pelvis are unremarkable. The pelvic organs are normal. T he pelvic sidewalls and inguinal regions are clear. The sigmoid colon and rectum are all unremarkab le. No mass, lymphadenopathy, or free fluid is seen. No acute inflammation is seen. The appendix is unremarkable. The surrounding osseous structures are remarkable for mild degenerative spondylosis of the spine. N o osteolytic or osteoblastic lesion is detected. IMPRESSION: 1. 14 cm left hepatic lobe mass, with changes of sclerosis. 2. 6 cm exophytic mass arises from the left hepatic lobe and invades the portal vein at the toro he patis. 3. These findings represent neoplasm until proven otherwise. 4. 3 cm cystic lesion at the head of the pancreas, which may represent manifestation of neoplasm, wi th 4 mm diameter dilated pancreatic duct. 5. Extensive fat inflammatory changes over the pancreas. 6. Portal venous hypertension with likely gastric varices and thrombosed umbilical vein. 7. 6 mm possible fat-containing myelolipoma in the right kidney. These findings and impression discussed with Dr. Apodaca of the [facility] emergency department at the conclusion of this examination by the undersigned interpreting radiologist on at 2006 hours. RPTAT: [facility] Physician Rogelio Date Time Electronically viewed and signed by Physician Rogelio on 01/03/2017 22:13 RS/
[2017-01-03] MEDS ORDERED: HYDROmorphONE 1 MG/ML SYG IV STA (22:19)
[2017-01-03] MEDS ORDERED: ACETAMINOPHEN 325 MG TAB PO PRN (22:30)
[2017-01-03] MEDS ORDERED: ONDANSETRON 4 MG INJ IV PRN (22:30)
[2017-01-03] MEDS ORDERED: SOD CHLORIDE 0.9% 1,000 ML IV ONE (23:00)
[2017-01-04] MEDS ORDERED: HYDROmorphONE 1 MG/ML SYG IV ONE (00:05)
--- NOTE | 2017-01-04 00:10 | ERD ---
ER Documentation Chief Complaint Chief Complaint ABD PAIN, NAUSEA, PT WITH RECENT HOSPITAL ADMISSION HPI This 51-year-old male presents for severe abdominal pain with nausea and vomiting. He has a history of liver cancer and liver failure. Nominal pain is sharp in different times in all parts of his abdomen. Is been severe last couple days but he has had it since he was discharged recently. He was discharged only 8 [place]. Denies any fever and chills. Vomiting is nonbloody and nonbilious. He has no diarrhea or constipation. ROS All systems reviewed and are negative except as per history of present illness. Medications Home Meds Active Scripts Hydrocodone Bit-Acetaminophen (Hydrocodone Bit-APAP) 5-325MG Tablet, 1 TAB PO Q4H Y for PAIN, #8 TAB Prov:DIAENLYS DUMAS MD 12/29/16 [Nicotine (14 Mg/24 Hr)] 1 PATCH PATCH No Conflict Check, 1 PATCH TRANSDERM DAILY for 30 Days, #30 EA Prov:DIANELYS DUMAS MD 12/29/16 Reported Medications Quetiapine Fumarate* (Quetiapine Fumarate*) 400 Mg Tablet, 300 MG PO HS, TAB 12/26/16 Aspirin (Low Dose Aspirin) 81 Mg Tablet.dr, 81 MG PO DAILY, #30 TAB 01/30/16 Pantoprazole* (Pantoprazole*) 40 Mg Tablet.dr, 40 MG PO AC BREAKFAST, TAB 01/30/16 Mirtazapine (Mirtazapine) 45 Mg Tab.rapdis, 45 MG PO QHS 01/02/16 Lisinopril* (Lisinopril*) 2.5 Mg Tablet, 2.5 MG PO DAILY, #30 TAB 03/07/15 Carvedilol* (Coreg*) 3.125 Mg Tablet, 3.125 MG PO BID, #60 TAB 03/07/15 Atorvastatin* (Atorvastatin*) 40 Mg Tablet, 40 MG PO QHS, #30 TAB 03/07/15 Allergies Allergies: Coded Allergies: No Known Allergy (Unverified , 01/30/16) PMhx/Soc History of Surgery: Yes (right foot) Anesthesia Reaction: No Hx Neurological Disorder: No Hx Respiratory Disorders: No Hx Cardiac Disorders: No Hx Psychiatric Problems: No Hx Miscellaneous Medical Probl: Yes (tumor on liver, pancreatitis) Hx Alcohol Use: Yes (sober for 4 years now) Hx Substance Use: No Hx Tobacco Use: Yes Smoking Status: Current every day smoker Physical Exam Vitals Vital Signs Date Time Temp Pulse Resp B/P Pulse Ox O2 Delivery O2 Flow Rate FiO2 01/03/17 23:30 87 26 121/91 93 Nasal Cannula 2.0 01/03/17 21:30 92 26 125/92 94 Nasal Cannula 2.0 01/03/17 19:30 77 27 107/86 98 Nasal Cannula 2.0 01/03/17 16:51 98.6 118 17 125/72 97 Physical Exam Const: [] Severe distress, significant pain Head: Atraumatic Eyes: Normal Conjunctiva ENT: Normal External Ears, Nose and Mouth. Neck: Full range of motion..~ No meningismus. Resp: Clear to auscultation bilaterally Cardio: Regular tachycardia, no murmurs Abd: Soft, mild to moderate tenderness to palpation is mostly mid abdominal and has no guarding or rebound., non distended. Normal bowel sounds Skin: No petechiae or rashes Back: No midline or flank tenderness Ext: No cyanosis, or edema Neur: Awake and alert 3, no focal deficits Psych: Normal Mood and Affect Result Diagram: 01/03/17184901/03/171849 Results 24 hrs Laboratory Tests Test 01/03/17 18:50 White Blood Count 14.710^3/ul Red Blood Count 5.4910^6/ul Hemoglobin 16.4g/dl Hematocrit 47.3% Mean Corpuscular Volume 86.2fl Mean Corpuscular Hemoglobin 29.9pg Mean Corpuscular Hemoglobin Concent 34.7g/dl Red Cell Distribution Width 15.4% Platelet Count 00835^3/UL Mean Platelet Volume 9.5fl Neutrophils % 74.8% Lymphocytes % 16.9% Monocytes % 5.9% Eosinophils % 1.4% Basophils % 0.4% Nucleated Red Blood Cells % 0.0/100WBC Neutrophils # 11.010^3/ul Lymphocytes # 2.510^3/ul Monocytes # 0.910^3/ul Eosinophils # 0.210^3/ul Basophils # 0.110^3/ul Nucleated Red Blood Cells # 0.010^3/ul Sodium Level 142mmol/L Potassium Level 4.5mmol/L Chloride Level 103mmol/L Carbon Dioxide Level 23mmol/L Anion Gap 21 Blood Urea Nitrogen 12mg/dl Creatinine 0.77mg/dl Glucose Level 116mg/dl Calcium Level 10.0mg/dl Total Bilirubin 0.5mg/dl Direct Bilirubin 0.00mg/dl Indirect Bilirubin 0.5mg/dl Aspartate Amino Transf (AST/SGOT) 86IU/L Alanine Aminotransferase (ALT/SGPT) 47IU/L Alkaline Phosphatase 216IU/L Total Protein 9.1g/dl Albumin 4.4g/dl Globulin 4.70g/dl Albumin/Globulin Ratio 0.93 Lipase 931U/L Current Medications Medications (Trade) Dose Ordered Sig/Jerrod Route PRN Reason Start Time Stop Time Status Last Admin Dose Admin Sodium Chloride (NS) 1,000 ml @ 1,000 mls/hr Q1H STAT IV 01/03/17 18:46 01/03/17 19:45 DC 01/03/17 18:55 Morphine Sulfate (morphine) 2 mg ONCE STAT IV 01/03/17 18:46 01/03/17 18:47 DC 01/03/17 18:55 Ondansetron HCl (Zofran Inj) 4 mg ONCE STAT IV 01/03/17 18:46 01/03/17 18:47 DC 01/03/17 18:55 Oxycodone/ Acetaminophen (Percocet (5/ 325)) 1 tab ONCE ONCE PO 01/03/17 19:30 01/03/17 19:31 DC 01/03/17 19:09 Fentanyl (Sublimaze) 25 mcg ONCE ONCE IV 01/03/17 20:00 01/03/17 20:01 DC 01/03/17 20:04 Fentanyl (Sublimaze) 50 mcg ONCE ONCE IV 01/03/17 20:00 01/03/17 20:01 DC 01/03/17 20:10 Metoclopramide HCl (Reglan) 10 mg ONCE ONCE IV 01/03/17 20:00 01/03/17 20:02 DC 01/03/17 20:10 IV Flush 10 ml 10 ml STK-MED ONCE .ROUTE 01/03/17 20:50 01/03/17 20:51 DC 01/03/17 21:02 Sodium Chloride (NS) 100 ml @ ud STK-MED ONCE .ROUTE 01/03/17 20:50 01/03/17 20:51 DC 01/03/17 21:02 Iohexol (Omnipaque 300mg/ ml) 150 ml STK-MED ONCE .ROUTE 01/03/17 20:50 01/03/17 20:51 DC 01/03/17 21:02 Hydromorphone HCl (Dilaudid) 1 mg ONCE STAT IV 01/03/17 22:19 01/03/17 22:20 DC 01/03/17 22:35 Ondansetron HCl (Zofran Inj) 4 mg BRIDGE ORDER PRN IV NAUSEA AND/OR VOMITING 01/03/17 22:30 01/04/17 22:29 Acetaminophen 650 mg 650 mg ER BRIDGE PRN PO MILD PAIN/FEVER 01/03/17 22:30 01/04/17 22:29 Sodium Chloride (NS) 1,000 ml @ 1,000 mls/hr Q1H ONCE IV 01/03/17 23:00 01/03/17 23:59 DC 01/03/17 23:05 Procedures/MDM intractable abdominal pain secondary to large abdominal tumor invading the liver and portal circulation as well as possible metastases to pancreas and could be. Patient was hydrated with normal saline and given morphine and fentanyl for pain which helped calm the pain somewhat. He was then given Dilaudid which took away his pain completely but only for approximately 30 minutes or so at a time. He required multiple doses. Initially tachycardic his heart was resolved with pain control. Patient has required increased respiratory rate with no shortness of breath or respiratory distress noted. Doubt infectious cause patient has not been febrile and has had abdominal pain that he has had for quite some time. Fortunately he has a progressive debilitating process and he is not surgical candidate. Dr. grimes is admitting CT abdomen pelvis with contrast: Formation of the pancreas as well as vision the portal circulation by mass that appears to have liver origin, no bowel obstruction, no fractures. Departure Diagnosis: Primary Impression: Intractable abdominal pain Additional Impressions: Liver mass Pancreatitis Condition: Serious PERLITA JAQUEZ DO Jan 04, 2017 00:10
[2017-01-04 00:30] VITALS: BP 115/73; RESP 16
[2017-01-04] MEDS ORDERED: HALOPERIDOL 5 MG INJ IM ONE (00:30)
[2017-01-04] MEDS ORDERED: LORAZEPAM 2 MG INJ IV ONE (00:30)
[2017-01-04] MEDS ORDERED: morphine 4 MG/ML VIAL IV PRN (00:40)
[2017-01-04 01:00] VITALS: Ht 165.1 cm; Wt 107.5 kg
[2017-01-04] MEDS ORDERED: ONDANSETRON 4 MG INJ IV PRN (01:00)
[2017-01-04] MEDS: DEXTROSE 5%-0.45% NACL 1,000 ML IV SCH ×3 (01:00→23:31)
[2017-01-04] MEDS: morphine 4 MG/ML VIAL IV PRN ×5 (01:22→21:45)
[2017-01-04] MEDS: ONDANSETRON 4 MG INJ IV PRN ×2 (01:22→08:57)
[2017-01-04 02:00] VITALS: BP 120/59; PULSE 82
[2017-01-04] MEDS: HYDROmorphONE 1 MG/ML SYG IV PRN ×2 (02:35→09:00)
[2017-01-04 03:12] LABS: ADD UMIC NO; UR ASCORBIC ACID NEGATIVE (NEGATIVE); UR BILIRUBIN (Dip) NEGATIVE (NEGATIVE); UR BLOOD (Dip) NEGATIVE (NEGATIVE); UR CLARITY CLEAR (CLEAR); UR COLOR YELLOW (YELLOW); UR GLUCOSE (Dip) NEGATIVE (NEGATIVE); UR KETONES (Dip) NEGATIVE (NEGATIVE); UR LEUKOCYTE ESTERASE (Dip) NEGATIVE Leu/ul (NEGATIVE); UR NITRITE (Dip) NEGATIVE (NEGATIVE); UR SPECIFIC GRAVITY (Dip) > 1.060 (1.003-1.030); UR TOTAL PROTEIN (Dip) NEGATIVE (NEGATIVE); UR UROBILINOGEN (Dip) 2+ mg/dL (NEGATIVE)
[2017-01-04] MEDS: PANTOPRAZOLE 40 MG INJ IV SCH (05:45)
[2017-01-04 06:31] LABS: BASOPHILS % 0.3 % (0.0-2.0); EOSINOPHILS # 0.1 10^3/ul (0.0-0.5); EOSINOPHILS % 0.9 % (0.0-7.0); HEMATOCRIT 40.9 % (42.0-52.0); HEMOGLOBIN 13.6 g/dl (14.0-18.0); LYMPHOCYTES # 2.4 10^3/ul (0.8-2.9); LYMPHOCYTES % 23.1 % (15.0-51.0); MEAN CORPUSCULAR HEMOGLOBIN 29.6 pg (29.0-33.0); MEAN CORPUSCULAR HGB CONC 33.3 g/dl (32.0-37.0); MEAN CORPUSCULAR VOLUME 89.1 fl (82.0-101.0); MEAN PLATELET VOLUME 9.8 fl (7.4-10.4); MONOCYTE # 0.9 10^3/ul (0.3-0.9); MONOCYTES % 8.7 % (0.0-11.0); NEUTROPHILS % 66.5 % (39.0-77.0); PLATELET COUNT 282 10^3/UL (140-415); RED BLOOD COUNT 4.59 10^6/ul (4.70-6.10); RED CELL DISTRIBUTION WIDTH 15.9 % (11.5-14.5); WHITE BLOOD COUNT 10.5 10^3/ul (4.8-10.8)
[2017-01-04 06:55] LABS: ALBUMIN 3.4 g/dl (3.3-4.9); ALBUMIN/GLOBULIN RATIO 0.82; BILIRUBIN,INDIRECT 0.4 mg/dl (0-1.1); BILIRUBIN,TOTAL 0.4 mg/dl (0.2-1.3); CALCIUM 8.9 mg/dl (8.4-10.2); CREATININE 0.67 mg/dl (0.61-1.24); POTASSIUM 4.3 mmol/L (3.5-5.1); TOTAL PROTEIN 7.5 g/dl (6.1-8.1)
[2017-01-04 08:29] VITALS: BP 120/77; RESP 18
--- NOTE | 2017-01-04 08:46 | HP ---
Date/Time of Note Date/Time of Note DATE: 01/04/17 TIME: 08:36 Assessment/Plan VTE Prophylaxis VTE Prophylaxis Intervention: SCD's Lines/Catheters IV Catheter Type (from [facility]): Peripheral IV Urinary Cath still in place: No Assessment/Plan Assessment/Plan ASSESSMENT This is a 51-year-old male with history of diagnosed 4 years ago HCC with pancreatic carcinoma is here was abdominal pain and lower, portal vein thrombosis, hypertension, hepatitis C, rectal bleeding, anxiety, bipolar disorder, schizophrenia here with abdominal pain and back pain, most likely secondary to known malignancy PLAN Continue pain medication Consults oncology and surgery to see if there is anything that can be done Palliative care consult Continue home medications adjustment as needed HPI/ROS Admit Date/Time Admit Date/Time Jan 03, 2017 at 22:30 Hx of Present Illness This is a 50-year-old male with a past medical history of HCC, coronary artery disease, portal vein thrombosis, hypertension, hepatitis C, rectal bleeding, anxiety, bipolar disorder, schizophrenia who presents to the ED complaining of abdominal pain and back pain. Patient was admitted here recently and was just discharged less than a week ago. At that time he was seen by HBS and vascular for portal vein thrombosis and his carcinoma. Plan was to treat thrombosis with aspirin and to follow-up as outpatient for his cancer. He said he was diagnosed with HCC 4 years ago and initially had treatment. He said he was on the liver transplant list at [facility] but is no longer considered a candidate. When he presented to the ER, he was tachycardic with a heart rate of 118. CT abdomen/pelvis shows left hepatic mass with invasion of portal vein. Also a 3 cm cystic lesion on the head of the pancreas was noted along with extensive fat inflammatory change of the pancreas. WBC is almost 15,000, AST 86, alk phos 216 and lipase 931. 3 PMH/Family/Social Social History Smoking Status: Former smoker Exam/Review of Systems Vital Signs Vitals Vital Signs Date Time Temp Pulse Resp B/P Pulse Ox O2 Delivery O2 Flow Rate FiO2 01/04/17 08:29 97.7 79 18 120/77 96 01/04/17 02:00 Room Air 01/03/17 23:30 2.0 Intake and Output 01/03/17 01/03/17 01/04/17 14:59 22:59 06:59 Intake Total 500 ml Output Total 700 ml Balance -200 ml Exam Constitutional: distress Head: atraumatic, normocephalic Eyes: PERRL Respiratory: diminished breath sounds Cardiovascular: nl pulses, regular rate and rhythm Gastrointestinal: soft, tender Extremities: normal pulses Labs Result Diagram: 01/04/1752501/04/17525 Medications Medications Current Medications Dextrose/Sodium Chloride (D5-1/2ns) 1,000 ml @ 100 mls/hr Q10H IV Last administered on 01/04/17 01:00; Admin Dose 100 MLS/HR; Start 01/04/17 at 01: 00 Hydromorphone HCl (Dilaudid) 1 mg Q4H PRN IV PAIN Last administered on 02:35; Admin Dose 1 MG; Start 01/04/17 at 00:45 Heparin Sodium (Porcine) (Heparin (5000 Units/0.5 ml)) 5,000 unit Q12 SC ; Start 01/04/17 at 09:00 Aspirin (Halfprin) 81 mg DAILY PO ; Start 01/04/17 at 09:00 Atorvastatin Calcium (Lipitor) 40 mg QHS PO ; Start 01/04/17 at 21:00 Carvedilol (Coreg) 3.125 mg BID PO ; Start 01/04/17 at 09:00 Lisinopril (Zestril) 2.5 mg DAILY PO ; Start 01/04/17 at 09:00 Quetiapine Fumarate (Seroquel) 300 mg HS PO ; Start 01/04/17 at 21:00 Pantoprazole (Protonix Iv) 40 mg DAILY@06 IV Last administered on 01/04/17 05 :45; Admin Dose 40 MG; Start 01/04/17 at 06:00 Ondansetron HCl (Zofran Inj) 4 mg Q6H PRN IV NAUSEA AND/OR VOMITING Last administered on 01/04/17 01:22; Admin Dose 4 MG; Start 01/04/17 at 00:51 Morphine Sulfate (morphine) 4 mg Q4H PRN IV PAIN Last administered on 05:46; Admin Dose 4 MG; Start 01/04/17 at 00:51 DA SINGH MD Jan 04, 2017 08:46
[2017-01-04] MEDS: LISINOPRIL 5 MG TAB PO SCH (08:59)
[2017-01-04] MEDS: ASPIRIN (EC) 81 MG TAB PO SCH (08:59)
[2017-01-04] MEDS: HEPARIN 5,000 UNIT/0.5 ML VIAL SC SCH ×2 (09:06→20:35)
[2017-01-04] MEDS ORDERED: OXYCODONE/ACETAMINOPHEN (5/325) TAB PO PRN (12:00)
[2017-01-04] MEDS ORDERED: OXYCODONE/ACETAMINOPHEN (5/325) TAB PO ONE (13:30)
[2017-01-04 15:49] VITALS: BP 129/76; RESP 20
[2017-01-04] MEDS: OXYCODONE/ACETAMINOPHEN (10/325) TAB PO PRN ×2 (16:39→20:31)
[2017-01-04 19:15] VITALS: BP 114/63; RESP 18
[2017-01-04] MEDS ORDERED: ATORVASTATIN 40 MG TAB PO SCH (21:00)
[2017-01-04] MEDS ORDERED: QUETIAPINE 100 MG TAB PO SCH (21:00)
[2017-01-05] MEDS: OXYCODONE/ACETAMINOPHEN (10/325) TAB PO PRN ×3 (01:55→13:35)
[2017-01-05 02:00] VITALS: BP 110/67; RESP 18
[2017-01-05] MEDS: morphine 4 MG/ML VIAL IV PRN (04:43)
[2017-01-05] MEDS: PANTOPRAZOLE 40 MG INJ IV SCH (05:53)
[2017-01-05] MEDS: DEXTROSE 5%-0.45% NACL 1,000 ML IV SCH (07:00)
[2017-01-05 07:13] VITALS: BP 102/62; RESP 20
[2017-01-05] MEDS: ASPIRIN (EC) 81 MG TAB PO SCH (08:21)
[2017-01-05] MEDS: LISINOPRIL 5 MG TAB PO SCH (08:22)
[2017-01-05] MEDS: HEPARIN 5,000 UNIT/0.5 ML VIAL SC SCH (08:26)
[2017-01-05] MEDS ORDERED: OXYC-431 PO (13:04)
--- NOTE | 2017-01-05 13:06 | PDOCDIS ---
Discharge Instructions CONDITION Patient Condition: Good HOME CARE INSTRUCTIONS: Diet Instructions: Regular ACTIVITY: Activity Restrictions: No Restrictions FOLLOW UP/APPOINTMENTS Follow-up Plan FOLLOW UP WITH YOUR PRIMARY CARE PHYSICIAN IN 1-2 WEEKS, F/U WITH YOUR ONCOLOGIST SCHEDULED KO SIERRA Jan 05, 2017 13:06
[2017-01-05] MEDS: ONDANSETRON 4 MG INJ IV PRN (13:34)
--- NOTE | 2017-01-05 13:37 | DS ---
Date/Time of Note Date/Time of Note DATE: 01/05/17 TIME: 13:32 Discharge Summary Admission/Discharge Info Admit Date/Time Jan 03, 2017 at 22:30 Discharge Date/Time January 05, 2017 Discharge Diagnosis 1. Intractable abdominal pain secondary to hepatocellular carcinoma DC with Percocet as this controls the pain Continue to follow-up with oncology for further treatment 2. History of cirrhosis secondary to hepatitis C 3. History of bipolar disorder-stable Patient Condition: Good Hospital Course Patient is a 50-year-old male with a past medical history of HCC, coronary artery disease, portal vein thrombosis, hypertension, hepatitis C, rectal bleeding, anxiety, bipolar disorder, schizophrenia who presents to the ED complaining of abdominal pain and back pain. Patient is following with oncology and is receiving treatment continues to have abdominal pain and states that he ran out of his home [place]. He does state that [place] was no longer helping him with his pain. Patient was started on Percocet initially at 5/325 which did not help and was increased to 10/325 which did resolve his pain. Patient was felt to be stable for DC on the day of discharge patient's vitals, labs and physical exam was stable he had no acute complaints questions are answered. Patient understands that he is to follow-up with his oncologist. Home Meds Active Scripts Oxycodone HCl/Acetaminophen (Oxycodone-Acetaminophen 10-325) 1 Each Tablet, 1 TAB PO Q4H Y for PAIN, #40 TAB 0 Refills Prov:KO SIERRA 01/05/17 Hydrocodone Bit-Acetaminophen (Hydrocodone Bit-APAP) 5-325MG Tablet, 1 TAB PO Q4H Y for PAIN, #8 TAB Prov:DIANELYS DUMAS MD 12/29/16 [Nicotine (14 Mg/24 Hr)] 1 PATCH PATCH No Conflict Check, 1 PATCH TRANSDERM DAILY for 30 Days, #30 EA Prov:DIANELYS DUMAS MD 12/29/16 Reported Medications Quetiapine Fumarate* (Quetiapine Fumarate*) 400 Mg Tablet, 300 MG PO HS, TAB 12/26/16 Aspirin (Low Dose Aspirin) 81 Mg Tablet., 81 MG PO DAILY, #30 TAB 01/30/16 Pantoprazole* (Pantoprazole*) 40 Mg Tablet.dr, 40 MG PO AC BREAKFAST, TAB 01/30/16 Mirtazapine (Mirtazapine) 45 Mg Tab.rapdis, 45 MG PO QHS 01/02/16 Lisinopril* (Lisinopril*) 2.5 Mg Tablet, 2.5 MG PO DAILY, #30 TAB 03/07/15 Carvedilol* (Coreg*) 3.125 Mg Tablet, 3.125 MG PO BID, #60 TAB 03/07/15 Atorvastatin* (Atorvastatin*) 40 Mg Tablet, 40 MG PO QHS, #30 TAB 03/07/15 Follow-up Plan FOLLOW UP WITH YOUR PRIMARY CARE PHYSICIAN IN 1-2 WEEKS, F/U WITH YOUR ONCOLOGIST SCHEDULED Primary Care Provider Not On Staff Doctor Time spent on discharge: > 30 minutes KO SIERRA Jan 05, 2017 13:37
== END 2017-01-05 14:45 | disposition home or self-care (01) ==
LOC: E/R 16:48 → MS2 22:30 → MS1 01-04 07:41
PROVIDERS: ADMIT Internal Medicine; ATTEND Internal Medicine
DX: C22.0 Liver cell carcinoma (principal); B19.20 Unspecified viral hepatitis C without hepatic coma; F31.9 Bipolar disorder, unspecified; K74.60 Unspecified cirrhosis of liver; Z79.82 Long term (current) use of aspirin; I25.10 Atherosclerotic heart disease of native coronary artery without angina pectoris; I10 Essential (primary) hypertension; F20.9 Schizophrenia, unspecified; F41.9 Anxiety disorder, unspecified; F17.200 Nicotine dependence, unspecified, uncomplicated
CPT/HCPCS: 36415; 74177; 80053; 81003; 83690; 85025; 87081; 96374; 96375; C9113; J1170; J1644; J2270; J2405; J2765; J3010; J7030; J7042; Q9967; Z7500; Z7502; Z7610; G0378

== ENCOUNTER 2017-01-09 18:39 | Inpatient (IN) | payer BC ==
[~2017-01-09] VITALS: Ht 180.3 cm; Wt 110.1 kg
[~2017-01-09 18:39] MED LIST changes: +OXYC-431 PO
[2017-01-09] MEDS ORDERED: ONDANSETRON 4 MG INJ IV STA ×2 (19:08→22:38)
[2017-01-09] MEDS ORDERED: HYDROmorphONE 1 MG/ML SYG IV STA ×2 (19:08→22:38)
[2017-01-09] MEDS ORDERED: PANTOPRAZOLE IV 80 MG in SOD CHLORIDE 0.9% 100 ML IV STA (19:14)
[2017-01-09] MEDS ORDERED: SOD CHLORIDE 0.9% 1,000 ML IV STA (19:14)
[2017-01-09] MEDS ORDERED: PANTOPRAZOLE IV 80 MG in SOD CHLORIDE 0.9% 100 ML IVPB STA (19:14)
[2017-01-09] MEDS ORDERED: HYDROmorphONE 2 MG/ML SYG IV STA (19:22)
[2017-01-09 19:47] LABS: BASOPHILS % 0.4 % (0.0-2.0); EOSINOPHILS # 0.1 10^3/ul (0.0-0.5); EOSINOPHILS % 0.5 % (0.0-7.0); HEMATOCRIT 43.4 % (42.0-52.0); HEMOGLOBIN 14.6 g/dl (14.0-18.0); LYMPHOCYTES # 0.7 10^3/ul (0.8-2.9); LYMPHOCYTES % 6.3 % (15.0-51.0); MEAN CORPUSCULAR HEMOGLOBIN 29.1 pg (29.0-33.0); MEAN CORPUSCULAR HGB CONC 33.6 g/dl (32.0-37.0); MEAN CORPUSCULAR VOLUME 86.5 fl (82.0-101.0); MEAN PLATELET VOLUME 9.8 fl (7.4-10.4); MONOCYTE # 0.5 10^3/ul (0.3-0.9); MONOCYTES % 4.6 % (0.0-11.0); NEUTROPHIL # 9.4 10^3/ul (1.6-7.5); NEUTROPHILS % 87.5 % (39.0-77.0); PLATELET COUNT 295 10^3/UL (140-415); RED BLOOD COUNT 5.02 10^6/ul (4.70-6.10); WHITE BLOOD COUNT 10.7 10^3/ul (4.8-10.8)
[2017-01-09 20:03] LABS: INR 1.07; PARTIAL THROMBOPLASTIN TIME 29.3 Sec (25.0-35.0); PT RATIO 1.1
[2017-01-09 20:13] LABS: ALANINE AMINOTRANSFERASE 61 IU/L (13-69); ALBUMIN 4.2 g/dl (3.3-4.9); ALBUMIN/GLOBULIN RATIO 0.93; ALKALINE PHOSPHATASE 231 IU/L (42-121); ANION GAP 16 (8-16); ASPARTATE AMINO TRANSFERASE 107 IU/L (15-46); BILIRUBIN,INDIRECT 0.7 mg/dl (0-1.1); BILIRUBIN,TOTAL 0.7 mg/dl (0.2-1.3); BLOOD UREA NITROGEN 10 mg/dl (7-20); CALCIUM 9.8 mg/dl (8.4-10.2); CARBON DIOXIDE 21 mmol/L (21-31); CHLORIDE 105 mmol/L (97-110); CREATININE 0.73 mg/dl (0.61-1.24); GLUCOSE 120 mg/dl (70-220); POTASSIUM 4.1 mmol/L (3.5-5.1); SODIUM 138 mmol/L (135-144); TOTAL PROTEIN 8.7 g/dl (6.1-8.1)
[2017-01-09 20:26] LABS: TROPONIN-I < 0.012 ng/ml (0.00-0.12)
[2017-01-09] MEDS ORDERED: SOD CHLORIDE 0.9% 100 ML ONE (20:55)
[2017-01-09] MEDS ORDERED: IODIXANOL LOCM 100 ML BTL ONE (20:55)
--- NOTE | 2017-01-09 21:28 | RADRPT ---
PROCEDURE: CT abdomen and pelvis with contrast. CLINICAL INDICATION: Abdominal pain. TECHNIQUE: CT scan of the abdomen and pelvis with contrast was performed after the uneventful intrav enous administration of 100 cc of Visipaque 320. Coronal and sagittal reformatted images were obtain ed from the axial source images. The total exam CTDI equals 22.16 mGy and the total exam DLP equals 1418.04 mGy-cm. DICOM images are available. One or more of the following dose reduction techniques were used: - Automated exposure control. - Adjustment of the mA and/or kV according to patient size. - Use of iterative reconstruction technique. COMPARISON: CT dated 01/03/2017. FINDINGS: Visualized lower thorax: There is moderate centrilobular and paraseptal emphysema as well as depend ent change at both lung bases. There are multivessel coronary artery calcifications. The visualized heart is otherwise unremarkable. Hepatobiliary system and spleen: There is similar appearance of an ill-defined, infiltrative mass o ccupying the majority of the left hepatic lobe and extending into the anterior right hepatic lobe wi th associated tumor thrombus throughout the left portal vein and extending into the main portal vein . The right portal vein and main portal vein remain patent. There is also likely tumor thrombus with in a recanalized paraumbilical vein. The liver is nodular in contour, suggestive of underlying cirrh osis. There is no intra or extrahepatic biliary ductal dilatation. There are stones and sludge withi n the gallbladder. The spleen is unremarkable. There is an indeterminate 1.6 cm hypodense lesion in the head of the pancreas, which corresponds to the region of a previously demonstrated cyst, which h as decreased in size previously measuring 2.4 cm. Adrenal glands and genitourinary system: The adrenal glands are unremarkable. There are no renal ma sses or hydronephrosis. The urinary bladder is unremarkable. The prostate gland and seminal vesicles are unremarkable. Gastrointestinal system: There is no bowel wall thickening or evidence of obstruction. The appendix is in the right lower quadrant and is unremarkable. Peritoneum, vascular system, lymphatics: There is no free intraperitoneal air or free fluid. There is improved appearance of inflammatory change in the lesser sac. There is no mesenteric or retroperi toneal adenopathy. There are atherosclerotic changes of the aorta, which is nonaneurysmal. There is a small fat containing umbilical hernia. Musculoskeletal system and soft tissues: There is moderate multilevel degenerative enthesopathy. Th ere are no concerning osseous lesions. The soft tissues are unremarkable. IMPRESSION: 1. Similar appearance of an ill-defined, infiltrative mass involving nearly the entire left hepatic lobe and extending into the anterior right hepatic lobe with associated tumor thrombus involving th e left portal vein and extending into the main portal vein. Likely tumor thrombus within a recanaliz ed paraumbilical vein. Morphologic changes of the liver, suggestive of underlying cirrhosis. 2. Improved inflammatory change in the lesser sac. Wall thickening of the gastric antrum is also im proved. 3. Indeterminate 1.6 cm hypodense lesion in the pancreatic head, which corresponds to a previously seen cyst, it is decreased in size when compared the prior. 4. Cholelithiasis and gallbladder sludge. 5. Multivessel coronary artery calcifications and atherosclerotic changes of the aorta. 6. Moderate centrilobular and paraseptal emphysema in the visualized lung bases. RPTAT: HLBP .Dru Waterman MD, Date Time Electronically viewed and signed by .Dru Waterman MD, on 01/09/2017 21:28 .P/
[2017-01-09] MEDS ORDERED: ESOM40CA PO (22:10)
[2017-01-09] MEDS ORDERED: RANI300T PO (22:10)
[2017-01-09] MEDS ORDERED: HYDR-902 PO (22:12)
[2017-01-09] MEDS ORDERED: OXYC-209 PO (22:48)
--- NOTE | 2017-01-09 22:59 | ERD ---
ER Documentation Chief Complaint Chief Complaint abd pain HPI This is a 51-year-old male with a known history of liver cancer with portal vein thrombosis. The patient states that he is having more pain in his abdomen consistent with his prior history of chronic abdominal pain. The patient was recently admitted here at this hospital and discharged 3 days ago for chronic abdominal pain. Patient's pain was controlled with Percocet. Patient said he was at [facility] ER prior to coming here he left there because their pain medicine was not strong enough. Patient said he vomited once that may be had some blood in it but it was not sure. The patient says his pain is in the mid abdomen and is constant nonradiating described as a deep dull ache. No diarrhea no chest pain or shortness of breath. ROS All systems reviewed and are negative except as per history of present illness. Medications Home Meds Active Scripts Oxycodone HCl/Acetaminophen (Percocet 10-325 mg Tablet) 1 Each Tablet, 1 EACH PO TID for PAIN, #20 TAB Prov:ELA MERCADO DO 01/09/17 Oxycodone HCl/Acetaminophen (Oxycodone-Acetaminophen 10-325) 1 Each Tablet, 1 TAB PO Q4H Y for PAIN, #40 TAB 0 Refills Prov:KO SIERRA 01/05/17 Reported Medications Hydrocodone/Acetaminophen ([place] 10-325 Tablet) 1 Each Tablet, 1 EACH PO Q8H, TAB 01/09/17 Ranitidine Hcl* (Ranitidine Hcl*) 300 Mg Tablet, 300 MG PO BID, #30 TAB 01/09/17 Esomeprazole Mag Trihydrate (Nexium) 40 Mg Capsule.dr, 40 MG PO DAILY, #30 CAP 01/09/17 Mirtazapine (Mirtazapine) 45 Mg Tab.rapdis, 45 MG PO QHS 01/02/16 Lisinopril* (Lisinopril*) 2.5 Mg Tablet, 2.5 MG PO DAILY, #30 TAB 03/07/15 Carvedilol* (Coreg*) 3.125 Mg Tablet, 3.125 MG PO BID, #60 TAB 03/07/15 Atorvastatin* (Atorvastatin*) 40 Mg Tablet, 40 MG PO QHS, #30 TAB 03/07/15 Discontinued Reported Medications Quetiapine Fumarate* (Quetiapine Fumarate*) 400 Mg Tablet, 300 MG PO HS, TAB 12/26/16 Aspirin (Low Dose Aspirin) 81 Mg Tablet.dr, 81 MG PO DAILY, #30 TAB 01/30/16 Pantoprazole* (Pantoprazole*) 40 Mg Tablet.dr, 40 MG PO AC BREAKFAST, TAB 01/30/16 Discontinued Scripts Hydrocodone Bit-Acetaminophen (Hydrocodone Bit-APAP) 5-325MG Tablet, 1 TAB PO Q4H Y for PAIN, #8 TAB Prov:DIANELYS DUMAS MD 12/29/16 [Nicotine (14 Mg/24 Hr)] 1 PATCH PATCH No Conflict Check, 1 PATCH TRANSDERM DAILY for 30 Days, #30 EA Prov:DIANELYS DUMAS MD 12/29/16 Allergies Allergies: Coded Allergies: No Known Allergy (Unverified , 01/09/17) PMhx/Soc History of Surgery: Yes (liver sx) Anesthesia Reaction: No Hx Neurological Disorder: No Hx Respiratory Disorders: No Hx Cardiac Disorders: Yes (HTN, hyperlipidemia) Hx Psychiatric Problems: Yes (bipolar disorder, anxiety,schizoprenia) Hx Miscellaneous Medical Probl: Yes (multiple falls from home as per pt) Hx Alcohol Use: No (quit 2012) Hx Substance Use: No Hx Tobacco Use: Yes Smoking Status: Current every day smoker FmHx Family History: No coronary disease Physical Exam Vitals Vital Signs Date Time Temp Pulse Resp B/P Pulse Ox O2 Delivery O2 Flow Rate FiO2 01/09/17 18:43 98.1 86 20 120/61 98 Physical Exam Const: Well-developed, well-nourished Head: Atraumatic, normocephalic Eyes: Normal Conjunctiva, PERRLA, EOMI, normal sclera, no nystagmus ENT: Normal External Ears, Nose and Mouth, moist mucus membranes. Neck: Full range of motion. No meningismus, no lymphadenopathy. Resp: Clear to auscultation bilaterally, no wheezing, rhonchi, rales Cardio: Regular rate and rhythm, no murmurs, S1 S2 present Abd: Soft, mid abdominal tenderness is moderate, non distended. Normal bowel sounds, no guarding or rebound, no pulsitile abdominal masses or bruits Skin: No petechiae or rashes, no ecchymosis , no maculopapular rash Back: No midline or flank tenderness Ext: No cyanosis, or edema, FROM x 4, normal inspection, neurovascularly intact x 4 Neur: Awake and alert, STR 5/5 x 4, sensation intact x 4, no focal findings, cerebellum intact Psych: Normal Mood and Affect, very histrionic Result Diagram: 01/09/17193601/09/171919 Results 24 hrs Laboratory Tests Test 01/09/17 19:20 01/09/17 19:37 Prothrombin Time 14.0Sec Prothrombin Time Ratio 1.1 INR International Normalized Ratio 1.07 Activated Partial Thromboplast Time 29.3Sec Sodium Level 138mmol/L Potassium Level 4.1mmol/L Chloride Level 105mmol/L Carbon Dioxide Level 21mmol/L Anion Gap 16 Blood Urea Nitrogen 10mg/dl Creatinine 0.73mg/dl Glucose Level 120mg/dl Calcium Level 9.8mg/dl Total Bilirubin 0.7mg/dl Direct Bilirubin 0.00mg/dl Indirect Bilirubin 0.7mg/dl Aspartate Amino Transf (AST/SGOT) 107IU/L Alanine Aminotransferase (ALT/SGPT) 61IU/L Alkaline Phosphatase 231IU/L Troponin I < 0.012ng/ml Total Protein 8.7g/dl Albumin 4.2g/dl Globulin 4.50g/dl Albumin/Globulin Ratio 0.93 White Blood Count 10.710^3/ul Red Blood Count 5.0210^6/ul Hemoglobin 14.6g/dl Hematocrit 43.4% Mean Corpuscular Volume 86.5fl Mean Corpuscular Hemoglobin 29.1pg Mean Corpuscular Hemoglobin Concent 33.6g/dl Red Cell Distribution Width 15.0% Platelet Count 98368^3/UL Mean Platelet Volume 9.8fl Neutrophils % 87.5% Lymphocytes % 6.3% Monocytes % 4.6% Eosinophils % 0.5% Basophils % 0.4% Nucleated Red Blood Cells % 0.0/100WBC Neutrophils # 9.410^3/ul Lymphocytes # 0.710^3/ul Monocytes # 0.510^3/ul Eosinophils # 0.110^3/ul Basophils # 0.010^3/ul Nucleated Red Blood Cells # 0.010^3/ul Current Medications Medications (Trade) Dose Ordered Sig/Jerrod Route PRN Reason Start Time Stop Time Status Last Admin Dose Admin Hydromorphone HCl (Dilaudid) 1 mg ONCE STAT IV 01/09/17 19:08 01/09/17 19:11 DC 01/09/17 19:17 Ondansetron HCl 4 mg 4 mg ONCE STAT IV 01/09/17 19:08 01/09/17 19:11 DC 01/09/17 19:17 Sodium Chloride 1,000 ml @ 1,000 mls/hr Q1H STAT IV 01/09/17 19:14 01/09/17 20:13 DC 01/09/17 19:53 Pantoprazole 80 mg/Sodium Chloride 100 ml @ 400 mls/hr ONCE STAT IVPB 01/09/17 19:14 01/09/17 19:28 DC 01/09/17 19:53 Pantoprazole/ Sodium Chloride (Protonix Iv/NS) 100 ml @ 10 mls/hr ONCE STAT IV 01/09/17 19:14 01/10/17 05:13 01/09/17 20:20 Hydromorphone HCl (Dilaudid) 2 mg ONCE STAT IV 01/09/17 19:22 01/09/17 19:23 DC 01/09/17 19:40 IV Flush 10 ml 10 ml STK-MED ONCE .ROUTE 01/09/17 20:55 01/09/17 20:56 DC 01/09/17 20:55 Sodium Chloride (NS) 100 ml @ ud STK-MED ONCE .ROUTE 01/09/17 20:55 01/09/17 20:56 DC 01/09/17 20:55 Iodixanol (Visipaque Locm) 100 ml STK-MED ONCE .ROUTE 01/09/17 20:55 01/09/17 20:56 DC 01/09/17 20:55 Hydromorphone HCl (Dilaudid) 1 mg ONCE STAT IV 01/09/17 22:38 01/09/17 22:47 DC Ondansetron HCl (Zofran Inj) 4 mg ONCE STAT IV 01/09/17 22:38 01/09/17 22:47 DC Procedures/MDM PROCEDURE: CT abdomen and pelvis with contrast. CLINICAL INDICATION: Abdominal pain. TECHNIQUE: CT scan of the abdomen and pelvis with contrast was performed after the uneventful intravenous administration of 100 cc of Visipaque 320. Coronal and sagittal reformatted images were obtained from the axial source images. The total exam CTDI equals 22.16 mGy and the total exam DLP equals 1418.04 mGy-cm. DICOM images are available. One or more of the following dose reduction techniques were used: - Automated exposure control. - Adjustment of the mA and/or kV according to patient size. - Use of iterative reconstruction technique. COMPARISON: CT dated 01/03/2017. FINDINGS: Visualized lower thorax: There is moderate centrilobular and paraseptal emphysema as well as dependent change at both lung bases. There are multivessel coronary artery calcifications. The visualized heart is otherwise unremarkable. Hepatobiliary system and spleen: There is similar appearance of an ill-defined , infiltrative mass occupying the majority of the left hepatic lobe and extending into the anterior right hepatic lobe with associated tumor thrombus throughout the left portal vein and extending into the main portal vein. The right portal vein and main portal vein remain patent. There is also likely tumor thrombus within a recanalized paraumbilical vein. The liver is nodular in contour, suggestive of underlying cirrhosis. There is no intra or extrahepatic biliary ductal dilatation. There are stones and sludge within the gallbladder. The spleen is unremarkable. There is an indeterminate 1.6 cm hypodense lesion in the head of the pancreas, which corresponds to the region of a previously demonstrated cyst, which has decreased in size previously measuring 2.4 cm. Adrenal glands and genitourinary system: The adrenal glands are unremarkable. There are no renal masses or hydronephrosis. The urinary bladder is unremarkable. The prostate gland and seminal vesicles are unremarkable. Gastrointestinal system: There is no bowel wall thickening or evidence of obstruction. The appendix is in the right lower quadrant and is unremarkable. Peritoneum, vascular system, lymphatics: There is no free intraperitoneal air or free fluid. There is improved appearance of inflammatory change in the lesser sac. There is no mesenteric or retroperitoneal adenopathy. There are atherosclerotic changes of the aorta, which is nonaneurysmal. There is a small fat containing umbilical hernia. Musculoskeletal system and soft tissues: There is moderate multilevel degenerative enthesopathy. There are no concerning osseous lesions. The soft tissues are unremarkable. IMPRESSION: 1. Similar appearance of an ill-defined, infiltrative mass involving nearly the entire left hepatic lobe and extending into the anterior right hepatic lobe with associated tumor thrombus involving the left portal vein and extending into the main portal vein. Likely tumor thrombus within a recanalized paraumbilical vein. Morphologic changes of the liver, suggestive of underlying cirrhosis. 2. Improved inflammatory change in the lesser sac. Wall thickening of the gastric antrum is also improved. 3. Indeterminate 1.6 cm hypodense lesion in the pancreatic head, which corresponds to a previously seen cyst, it is decreased in size when compared the prior. 4. Cholelithiasis and gallbladder sludge. 5. Multivessel coronary artery calcifications and atherosclerotic changes of the aorta. 6. Moderate centrilobular and paraseptal emphysema in the visualized lung bases. RPTAT: HLBP .Dru Waterman MD, MD Date Time Electronically viewed and signed by .Dru Waterman MD, on 01/09/2017 21:28 .P/ CC: ELA MERCADO DO The patient's CAT scan looks better than it did a few days back. Patient was given 1 of Dilaudid and said his pain was still there and he must get to. He is given to him went to sleep. The patient woke up and said that he feels better and he understands that he can continue to get Dilaudid over and over and that he is frustrated that his keep having abdominal pain. The patient says he has Percocet at home We are nearly preparing to discharge the patient patient started vomiting violently vomiting. Somewhat contained large amounts of vomit with coffee- ground emesis. We will continue Protonix drip and admit for upper GI bleed Departure Diagnosis: Primary Impression: Upper GI bleed Additional Impression: Chronic abdominal pain Condition: Stable Patient Instructions: Chronic Pain ELA MERCADO DO Jan 09, 2017 22:59
[2017-01-09] MEDS ORDERED: SOD CHLORIDE 0.9% 1,000 ML IV SCH (23:02)
[2017-01-09] MEDS ORDERED: OCTREOTIDE 50 MCG in SOD CHLORIDE 0.9% 25 ML IVPB STA (23:22)
[2017-01-09] MEDS ORDERED: OCTREOTIDE 500 MCG in SOD CHLORIDE 0.9% 49 ML IV STA (23:22)
[2017-01-09] MEDS: SOD CHLORIDE 0.9% 1,000 ML IV SCH (23:29)
[2017-01-09] MEDS ORDERED: ACETAMINOPHEN 325 MG TAB PO PRN (23:30)
[2017-01-09] MEDS ORDERED: ONDANSETRON 4 MG INJ IV PRN ×2 (23:30)
[2017-01-09] MEDS ORDERED: NACL 0.9% 3 ML SYG IV SCH (23:30)
[2017-01-10] VITALS (14 sets, daily range): BP systolic 120–155; BP diastolic 68–89; PULSE 76–86; RESP 16–20; TEMP 98.1; Ht 180.3 cm; Wt 110.1 kg
[2017-01-10] MEDS: morphine 2 MG INJ IV PRN ×2 (01:00→03:31)
[2017-01-10 02:04] LABS: BASOPHILS % 0.4 % (0.0-2.0); EOSINOPHILS # 0.1 10^3/ul (0.0-0.5); EOSINOPHILS % 0.6 % (0.0-7.0); HEMATOCRIT 40.6 % (42.0-52.0); HEMOGLOBIN 13.8 g/dl (14.0-18.0); LYMPHOCYTES # 1.1 10^3/ul (0.8-2.9); LYMPHOCYTES % 12.8 % (15.0-51.0); MEAN CORPUSCULAR HEMOGLOBIN 29.7 pg (29.0-33.0); MEAN CORPUSCULAR VOLUME 87.5 fl (82.0-101.0); MEAN PLATELET VOLUME 9.8 fl (7.4-10.4); MONOCYTE # 0.6 10^3/ul (0.3-0.9); MONOCYTES % 6.6 % (0.0-11.0); NEUTROPHIL # 6.6 10^3/ul (1.6-7.5); NEUTROPHILS % 79.2 % (39.0-77.0); PLATELET COUNT 265 10^3/UL (140-415); RED BLOOD COUNT 4.64 10^6/ul (4.70-6.10); WHITE BLOOD COUNT 8.3 10^3/ul (4.8-10.8)
[2017-01-10] MEDS: morphine 4 MG/ML VIAL IV PRN ×5 (05:08→23:08)
[2017-01-10 07:14] LABS: BASOPHILS % 0.3 % (0.0-2.0); EOSINOPHILS % 0.3 % (0.0-7.0); HEMATOCRIT 39.7 % (42.0-52.0); HEMOGLOBIN 13.4 g/dl (14.0-18.0); LYMPHOCYTES # 1.3 10^3/ul (0.8-2.9); LYMPHOCYTES % 13.2 % (15.0-51.0); MEAN CORPUSCULAR HEMOGLOBIN 29.6 pg (29.0-33.0); MEAN CORPUSCULAR HGB CONC 33.8 g/dl (32.0-37.0); MEAN CORPUSCULAR VOLUME 87.6 fl (82.0-101.0); MONOCYTE # 0.5 10^3/ul (0.3-0.9); MONOCYTES % 5.5 % (0.0-11.0); NEUTROPHIL # 7.8 10^3/ul (1.6-7.5); PLATELET COUNT 265 10^3/UL (140-415); RED BLOOD COUNT 4.53 10^6/ul (4.70-6.10); RED CELL DISTRIBUTION WIDTH 15.2 % (11.5-14.5); WHITE BLOOD COUNT 9.7 10^3/ul (4.8-10.8)
[2017-01-10 07:38] LABS: ALBUMIN 3.5 g/dl (3.3-4.9); ALBUMIN/GLOBULIN RATIO 0.77; BILIRUBIN,INDIRECT 0.5 mg/dl (0-1.1); BILIRUBIN,TOTAL 0.5 mg/dl (0.2-1.3); CALCIUM 9.4 mg/dl (8.4-10.2); CREATININE 0.64 mg/dl (0.61-1.24); POTASSIUM 4.2 mmol/L (3.5-5.1)
--- NOTE | 2017-01-10 09:00 | HP ---
Date/Time of Note Date/Time of Note DATE: 01/10/17 TIME: 08:42 Assessment/Plan Lines/Catheters IV Catheter Type (from [facility]): Saline Lock Assessment/Plan Chief Complaint/Hosp Course This is a 51-year-old male being admitted to the telemetry floor for: #1 Upper GI bleed: Patient reports hematemesis. He apparently just had a TACE procedure done at [facility]. At the current time will keep patient n.p.o. He was already initiated on octreotide and Protonix drip in the ED will continue this. GI was consulted via the ED, Dr. landon, will await the recommendations. Serial h/h. #2: Portal vein thrombosis: Patient has a history of this and he was advised by CT surgery and vascular surgery to take aspirin 81 mg. At the current time will hold this secondary to #1. #3 Hepatocellular carcinoma: Patient has a history of alcohol use as well as hepatitis C is found to have elevated alpha-fetoprotein. At the current time he is on the transplant list at [facility]. Will consult GI. Continue to monitor LFTs. Will also need to resume his Mcgregor once he is able to take p.o. #4 Coronary disease: The current time patient is on heparin, will hold aspirin and beta-sapphire at this time secondary to patient's borderline hypotension. Restart cardiac medications as clinically indicated #5 hypertension: We will continue on her blood pressures, however at the current time will put on as needed hydralazine. #6 : Psychiatric disorders: Patient has history of anxiety, schizophrenia, bipolar disorder. At the current time will resume patient's Seroquel and mirtazapine. Continue to monitor patient's psychological condition. #7 history of rectal bleed: Patient currently has a complaint of hematemesis per #1. Will continue monitor hemoglobin. No signs of active bleeding at this time. DVT GI prophylaxis: SCDs, PPI Further treatment strategy will be implemented as per the clinical course Problems: HPI/ROS Admit Date/Time Admit Date/Time Jan 09, 2017 at 23:03 Hx of Present Illness Chief complaint: Abdominal pain,, hematemesis This is a 51-year-old male with a known history of liver cancer with portal vein thrombosis. The patient states that he is having more pain in his abdomen consistent with his prior history of chronic abdominal pain. The patient was recently admitted here at this hospital and discharged 3 days ago for chronic abdominal pain. Patient's pain was controlled with Percocet. Patient states that yesterday he was at having a TACE procedure and after he had it done he was supposed to go home however his abdominal pain was worse however he was not being given adequate pain medications according to him so he left and then came here. Patient also states that he was vomiting and he noticed some blood in it. The patient says his pain is in the mid abdomen and is constant nonradiating described as a deep dull ache. No diarrhea no chest pain or shortness of breath. Rates his pain is similar to the pain that he had when he had his prior TACE procedure. Allergies: NKDA Medications: See CALVIN KEMP Const: As per HPI Eyes : No pain discharge or redness or change in visual acuity ENT: No pain, sore throat, congestion, congestion, dysphagia or discharge Respiratory: No shortness of breath, cough, sputum, wheezing, or pleuritic pain Cardiovascular: No chest pain, palpitation, PND, or edema GI : As per HPI Genitourinary: No dysuria, hematuria, flank pain , discharge or CVA tenderness Musculoskeletal: No joint pain, back pain, neck pain, restricted range of motion in neck or joints Skin: No rash, bruising or hives Neuro: No headache, dizziness, syncope, seizure, focal weakness Endocrine: No polyuria, polydipsia, temperature intolerance Psych: No hallucination, depression, anxiety or suicidal ideation PMH/Family/Social Past Medical History Hepatocellular cancer portal vein thrombosis Past Surgical History Multiple TACE procedures Social History Smoking Status: Former smoker Exam/Review of Systems Vital Signs Vitals Vital Signs Date Time Temp Pulse Resp B/P Pulse Ox O2 Delivery O2 Flow Rate FiO2 01/10/17 08:22 79 01/10/17 07:36 98.1 16 155/89 95 01/10/17 00:55 Room Air Intake and Output 01/09/17 01/09/17 01/10/17 14:59 22:59 06:59 Intake Total 70 ml Output Total 250 ml Balance -180 ml Exam Exam General: She is lying in bed in moderate distress from pain HEENT: Atraumatic, normocephalic. The pupils are equal, round and reactive. Extraocular motor are intact Neck: Supple with full range of motion. No rigidity or meningismus Chest: Nontender Lungs: Clear to auscultation bilaterally no crackles rales or wheezing Heart: Normal S1-S2, Regular rhythm and rate. No murmur, S3, or S4 Abdomen: Soft , nontender, nondistended , bowel sounds are present. No guarding no rebound tenderness , No masses or organomegaly. No costovertebral temporal angle mass Extremities: Normal to inspection, no edema no cyanosis, because of her right femoral region status post surgical procedure Neurologic: Normal mental status, speech normal, cranial nerves II through XII are intact, motor and sensory are intact, no focal weakness Labs Result Diagram: 01/10/1764301/10/17 0644 Medications Medications Current Medications Sodium Chloride (NS) 1,000 ml @ 70 mls/hr [id number] IV ; Start 01/09/17 at 23:29 Ondansetron HCl (Zofran Inj) 4 mg Q6H PRN IV NAUSEA AND/OR VOMITING; Start at 23:30 Morphine Sulfate (morphine) 4 mg Q4H PRN IV PAIN LEVEL 7-10 Last administered on 01/10/17t 05:08; Admin Dose 4 MG; Start 01/10/17 at 05:00 TAWANA WILEY Jan 10, 2017 08:55
[2017-01-10] MEDS: SOD CHLORIDE 0.9% 1,000 ML IV SCH (13:19)
[2017-01-10 14:10] LABS: BASOPHILS % 0.3 % (0.0-2.0); EOSINOPHILS # 0.1 10^3/ul (0.0-0.5); EOSINOPHILS % 0.6 % (0.0-7.0); HEMATOCRIT 41.1 % (42.0-52.0); HEMOGLOBIN 13.8 g/dl (14.0-18.0); LYMPHOCYTES # 1.6 10^3/ul (0.8-2.9); LYMPHOCYTES % 17.4 % (15.0-51.0); MEAN CORPUSCULAR HEMOGLOBIN 29.5 pg (29.0-33.0); MEAN CORPUSCULAR HGB CONC 33.6 g/dl (32.0-37.0); MEAN CORPUSCULAR VOLUME 87.8 fl (82.0-101.0); MEAN PLATELET VOLUME 9.7 fl (7.4-10.4); MONOCYTE # 0.7 10^3/ul (0.3-0.9); MONOCYTES % 8.2 % (0.0-11.0); NEUTROPHIL # 6.6 10^3/ul (1.6-7.5); NEUTROPHILS % 73.2 % (39.0-77.0); PLATELET COUNT 261 10^3/UL (140-415); RED BLOOD COUNT 4.68 10^6/ul (4.70-6.10); RED CELL DISTRIBUTION WIDTH 15.1 % (11.5-14.5)
--- NOTE | 2017-01-10 14:41 | PN ---
Date/Time of Note Date/Time of Note DATE: 01/10/17 TIME: 14:40 Assessment/Plan VTE Prophylaxis VTE Prophylaxis Intervention: SCD's Lines/Catheters IV Catheter Type (from Nrsg): Saline Lock Urinary Cath still in place: No Assessment/Plan Assessment/Plan 51 yo M with HCC complicated by portal vein thrombosis (not a transplant candidate) again here with intractable abd pain this time complicated by hematemesis. PLAN GI eval. Consider MW tear from vomiting 2/2 pain? cont pain control pain management consult given this is pt's 3rd admit in4 weeks for abd pain most likely 2/2 his HCC cont asa for PVT Subjective 24 Hr Interval Summary Free Text/Dictation Pt's issue at this time continues to be pain control Exam/Review of Systems Vital Signs Vitals Vital Signs Date Time Temp Pulse Resp B/P Pulse Ox O2 Delivery O2 Flow Rate FiO2 01/10/17 12:16 80 01/10/17 11:27 98.2 16 127/68 95 01/10/17 00:55 Room Air Intake and Output 01/09/17 01/09/17 01/10/17 15:00 23:00 07:00 Intake Total 70 ml Output Total 250 ml Balance -180 ml Exam uncomfortable no mrg lungs clear abd with ttp diffusely no rashes no edema CT reviewed Results Result Diagram: 01/10/17 1355 01/10/17 0644 Results 24 hrs Laboratory Tests Test 01/09/17 19:20 01/09/17 19:37 01/10/17 01:42 01/10/17 06:44 Prothrombin Time 14.0 Prothrombin Time Ratio 1.1 INR International Normalized Ratio 1.07 Activated Partial Thromboplast Time 29.3 Sodium Level 138 141 Potassium Level 4.1 4.2 Chloride Level 105 107 Carbon Dioxide Level 21 22 Anion Gap 16 16 Blood Urea Nitrogen 10 11 Creatinine 0.73 0.64 Glucose Level 120 139 Calcium Level 9.8 9.4 Total Bilirubin 0.7 0.5 Direct Bilirubin 0.00 0.00 Indirect Bilirubin 0.7 0.5 Aspartate Amino Transf (AST/SGOT) 107 H 144 H Alanine Aminotransferase (ALT/SGPT) 61 62 Alkaline Phosphatase 231 H 182 H Troponin I < 0.012 Total Protein 8.7 H 8.0 Albumin 4.2 3.5 Globulin 4.50 H 4.50 H Albumin/Globulin Ratio 0.93 0.77 White Blood Count 10.7 8.3 # 9.7 Red Blood Count 5.02 4.64 L 4.53 L Hemoglobin 14.6 13.8 L 13.4 L Hematocrit 43.4 40.6 L 39.7 L Mean Corpuscular Volume 86.5 87.5 87.6 Mean Corpuscular Hemoglobin 29.1 29.7 29.6 Mean Corpuscular Hemoglobin Concent 33.6 34.0 33.8 Red Cell Distribution Width 15.0 H 15.0 H 15.2 H Platelet Count 295 265 265 Mean Platelet Volume 9.8 9.8 10.0 Neutrophils % 87.5 H 79.2 H 80.0 H Lymphocytes % 6.3 L 12.8 L 13.2 L Monocytes % 4.6 6.6 5.5 Eosinophils % 0.5 0.6 0.3 Basophils % 0.4 0.4 0.3 Nucleated Red Blood Cells % 0.0 0.0 0.0 Neutrophils # 9.4 H 6.6 7.8 H Lymphocytes # 0.7 L 1.1 1.3 Monocytes # 0.5 0.6 0.5 Eosinophils # 0.1 0.1 0.0 Basophils # 0.0 0.0 0.0 Nucleated Red Blood Cells # 0.0 0.0 0.0 Ammonia 24 # Lipase 225 Magnesium Level 2.0 Test 01/10/17 13:55 White Blood Count 9.0 Red Blood Count 4.68 L Hemoglobin 13.8 L Hematocrit 41.1 L Mean Corpuscular Volume 87.8 Mean Corpuscular Hemoglobin 29.5 Mean Corpuscular Hemoglobin Concent 33.6 Red Cell Distribution Width 15.1 H Platelet Count 261 Mean Platelet Volume 9.7 Neutrophils % 73.2 Lymphocytes % 17.4 Monocytes % 8.2 Eosinophils % 0.6 Basophils % 0.3 Nucleated Red Blood Cells % 0.0 Neutrophils # 6.6 Lymphocytes # 1.6 Monocytes # 0.7 Eosinophils # 0.1 Basophils # 0.0 Nucleated Red Blood Cells # 0.0 Medications Medications Current Medications Sodium Chloride (NS) 1,000 ml @ 70 mls/hr [id number] IV Last administered on 01/10t 13:19; Admin Dose 70 MLS/HR; Start 01/09/17 at 23:29 Ondansetron HCl (Zofran Inj) 4 mg Q6H PRN IV NAUSEA AND/OR VOMITING; Start at 23:30 Morphine Sulfate (morphine) 4 mg Q4H PRN IV PAIN LEVEL 7-10 Last administered on 01/10/17t 13:15; Admin Dose 4 MG; Start 01/10/17 at 05:00 DIANELYS DUMAS MD Jan 10, 2017 14:41
--- NOTE | 2017-01-10 15:27 | CONS ---
Date/Time of Note Date/Time of Note DATE: 01/10/17 TIME: 15:09 Assessment/Plan Assessment/Plan Chief Complaint/Hosp Course Summary Assessment and Plan: Assessment: Hematemesis Jewell-Fleming tear versus gastritis versus esophagitis Hepatocellular carcinoma Portal vein thrombosis HTN Coronary disease Psychiatric disorders Plan: Continue H/H Continue PPI therapy Continue antiemetic therapy Continue pain management We will continue to monitor need for upper endoscopy Patient seen in collaboration with Dr. Cameron Problems: Consultation Date/Type/Reason Admit Date/Time Jan 09, 2017 at 23:03 Date of Consultation: Jan 10, 2017 Type of Consultation: GI Reason for Consultation Hematemesis Hx of Present Illness This is a 51-year-old male with past medical history of HCC, and protal vein thrombosis, who is a poor historian. Presented to the ER with abd pain, nausea and blood tinged vomit post second TACE procedure at [facility]. Patient states he had similar abd pain post 1st TACE procedure. At the time of evaluation patient denies any further episodes of nausea, vomiting, or hematemesis. Abdominal pain is being controlled with pain management. He denies dysphasia, diarrhea, constipation, hematochezia. Currently hemoglobin and hematocrit are stable. With presentation EGD not warranted at this time, but will continue to monitor need for endoscopy. Blood-tinged vomit likely secondary to Jewell-Fleming tear versus gastritis versus esophagitis will continue PPI therapy and monitor H/H. Review of Systems: Gastrointestinal and liver: Positive for: Nausea, vomiting, hematemesis, pyrosis. Negative for: Anorexia, dysphagia, odynophagia regurgitation, early satiety, bloating, abdominal pain, food intolerance, diarrhea, constipation, change in bowel habits, laxative use, hematemesis, melena, hematochezia, and rectal symptoms, incontinence, jaundice. Constitutional: requiring IVF Eyes: no complaints ENT: no complaints Respiratory: no complaints Cardiovascular: no complaints Past Medical History Medical History: coronary artery disease, GERD, hepatitis, hypertension Past Surgical History Past Surgical Hx: other (TACE procedure x2) Social History Smoking Status: Former smoker Exam/Review of Systems Vital Signs Vitals Vital Signs Date Time Temp Pulse Resp B/P Pulse Ox O2 Delivery O2 Flow Rate FiO2 01/10/17 12:16 80 01/10/17 11:27 98.2 16 127/68 95 01/10/17 00:55 Room Air Intake and Output 11/30/17 11/30/17 12/1/17 14:59 22:59 06:59 Intake Total 70 ml Output Total 250 ml Balance -180 ml Results Result Diagram: 01/10/17 1355 01/10/17 0644 Results 24 hrs Laboratory Tests Test 01/09/17 19:20 01/09/17 19:37 01/10/17 01:42 01/10/17 06:44 Prothrombin Time 14.0 Prothrombin Time Ratio 1.1 INR International Normalized Ratio 1.07 Activated Partial Thromboplast Time 29.3 Sodium Level 138 141 Potassium Level 4.1 4.2 Chloride Level 105 107 Carbon Dioxide Level 21 22 Anion Gap 16 16 Blood Urea Nitrogen 10 11 Creatinine 0.73 0.64 Glucose Level 120 139 Calcium Level 9.8 9.4 Total Bilirubin 0.7 0.5 Direct Bilirubin 0.00 0.00 Indirect Bilirubin 0.7 0.5 Aspartate Amino Transf (AST/SGOT) 107 H 144 H Alanine Aminotransferase (ALT/SGPT) 61 62 Alkaline Phosphatase 231 H 182 H Troponin I < 0.012 Total Protein 8.7 H 8.0 Albumin 4.2 3.5 Globulin 4.50 H 4.50 H Albumin/Globulin Ratio 0.93 0.77 White Blood Count 10.7 8.3 # 9.7 Red Blood Count 5.02 4.64 L 4.53 L Hemoglobin 14.6 13.8 L 13.4 L Hematocrit 43.4 40.6 L 39.7 L Mean Corpuscular Volume 86.5 87.5 87.6 Mean Corpuscular Hemoglobin 29.1 29.7 29.6 Mean Corpuscular Hemoglobin Concent 33.6 34.0 33.8 Red Cell Distribution Width 15.0 H 15.0 H 15.2 H Platelet Count 295 265 265 Mean Platelet Volume 9.8 9.8 10.0 Neutrophils % 87.5 H 79.2 H 80.0 H Lymphocytes % 6.3 L 12.8 L 13.2 L Monocytes % 4.6 6.6 5.5 Eosinophils % 0.5 0.6 0.3 Basophils % 0.4 0.4 0.3 Nucleated Red Blood Cells % 0.0 0.0 0.0 Neutrophils # 9.4 H 6.6 7.8 H Lymphocytes # 0.7 L 1.1 1.3 Monocytes # 0.5 0.6 0.5 Eosinophils # 0.1 0.1 0.0 Basophils # 0.0 0.0 0.0 Nucleated Red Blood Cells # 0.0 0.0 0.0 Ammonia 24 # Lipase 225 Magnesium Level 2.0 Test 01/10/17 13:55 White Blood Count 9.0 Red Blood Count 4.68 L Hemoglobin 13.8 L Hematocrit 41.1 L Mean Corpuscular Volume 87.8 Mean Corpuscular Hemoglobin 29.5 Mean Corpuscular Hemoglobin Concent 33.6 Red Cell Distribution Width 15.1 H Platelet Count 261 Mean Platelet Volume 9.7 Neutrophils % 73.2 Lymphocytes % 17.4 Monocytes % 8.2 Eosinophils % 0.6 Basophils % 0.3 Nucleated Red Blood Cells % 0.0 Neutrophils # 6.6 Lymphocytes # 1.6 Monocytes # 0.7 Eosinophils # 0.1 Basophils # 0.0 Nucleated Red Blood Cells # 0.0 Medications Medications Current Medications Sodium Chloride (NS) 1,000 ml @ 70 mls/hr [id number] IV Last administered on 01/10 13:19; Admin Dose 70 MLS/HR; Start 01/09/17 at 23:29 Ondansetron HCl (Zofran Inj) 4 mg Q6H PRN IV NAUSEA AND/OR VOMITING; Start at 23:30 Morphine Sulfate (morphine) 4 mg Q4H PRN IV PAIN LEVEL 7-10 Last administered on 01/10/17 13:15; Admin Dose 4 MG; Start 01/10/17 at 05:00 Atorvastatin Calcium (Lipitor) 40 mg QHS PO ; Start 01/10/17 at 21:00; Status UNV Carvedilol (Coreg) 3.125 mg BID PO ; Start 01/10/17 at 21:00; Status UNV Acetaminophen/ Hydrocodone Bitart ([place] (10/325)) 1 tab Q8H PRN PO pain; Start 01/10/17 at 15:00; Status UNV Lisinopril (Zestril) 2.5 mg DAILY PO ; Start 01/11/17 at 09:00; Status UNV Oxycodone/ Acetaminophen (Endocet (10/ 325)) 1 tab Q4H PRN PO PAIN; Start 01/10 at 15:00; Status UNV Miscellaneous Information 40 mg DAILY PO ; Start 01/11/17 at 09:00; Status UNV Miscellaneous Information 45 mg QHS PO ; Start 01/10/17 at 21:00; Status UNV Copies To: CC: TRAMAINE CAMERON MD, VICTORIA Jan 10, 2017 15:21
[2017-01-10 18:47] LABS: HEMATOCRIT 40.6 % (42.0-52.0); HEMOGLOBIN 13.5 g/dl (14.0-18.0)
[2017-01-10] MEDS: ATORVASTATIN 40 MG TAB PO SCH (20:51)
[2017-01-10] MEDS: MIRTAZAPINE 15 MG TAB PO SCH (20:51)
[2017-01-11] VITALS (10 sets, daily range): BP systolic 124–135; BP diastolic 77–79; PULSE 63–77; RESP 18–19
[2017-01-11] MEDS: PANTOPRAZOLE (EC) 40 MG TAB PO SCH (05:17)
[2017-01-11] MEDS: HYDROCODONE/APAP (10/325) TAB PO PRN ×2 (05:20→12:29)
[2017-01-11 06:53] LABS: BASOPHILS % 0.3 % (0.0-2.0); EOSINOPHILS # 0.1 10^3/ul (0.0-0.5); EOSINOPHILS % 0.7 % (0.0-7.0); HEMATOCRIT 39.6 % (42.0-52.0); HEMOGLOBIN 13.4 g/dl (14.0-18.0); LYMPHOCYTES # 1.7 10^3/ul (0.8-2.9); LYMPHOCYTES % 16.3 % (15.0-51.0); MEAN CORPUSCULAR HEMOGLOBIN 29.5 pg (29.0-33.0); MEAN CORPUSCULAR HGB CONC 33.8 g/dl (32.0-37.0); MEAN CORPUSCULAR VOLUME 87.2 fl (82.0-101.0); MEAN PLATELET VOLUME 10.2 fl (7.4-10.4); MONOCYTE # 0.9 10^3/ul (0.3-0.9); MONOCYTES % 8.5 % (0.0-11.0); NEUTROPHIL # 7.5 10^3/ul (1.6-7.5); NEUTROPHILS % 73.7 % (39.0-77.0); PLATELET COUNT 260 10^3/UL (140-415); RED BLOOD COUNT 4.54 10^6/ul (4.70-6.10); WHITE BLOOD COUNT 10.2 10^3/ul (4.8-10.8)
[2017-01-11] MEDS: LISINOPRIL 5 MG TAB PO SCH (08:12)
--- NOTE | 2017-01-11 13:24 | PN ---
Date/Time of Note Date/Time of Note DATE: 01/11/17 TIME: 13:17 Assessment/Plan VTE Prophylaxis VTE Prophylaxis Intervention: SCD's Lines/Catheters IV Catheter Type (from Nrsg): Saline Lock Urinary Cath still in place: No Assessment/Plan Assessment/Plan 51 yo M with HCC complicated by portal vein thrombosis (not a transplant candidate) again here with intractable abd pain this time complicated by hematemesis. PLAN GI on consult Consider MW tear from vomiting 2/2 pain? cont pain control --> pain management consult given this is pt's 3rd admit in4 weeks for abd pain most likely 2/2 his HCC cont asa for PVT ADAT discharge pending GI clearance, PO tolerance, clarification of pain regimen Subjective 24 Hr Interval Summary Free Text/Dictation trying to meditate to control his abd pain this AM Exam/Review of Systems Vital Signs Vitals Vital Signs Date Time Temp Pulse Resp B/P Pulse Ox O2 Delivery O2 Flow Rate FiO2 01/11/17 12:05 63 01/11/17 11:57 98.0 18 128/79 98 01/10/17 00:55 Room Air Intake and Output 01/10/17 01/10/17 01/11/17 15:00 23:00 07:00 Intake Total 50 ml 1000 ml Output Total 1250 ml 800 ml Balance -1200 ml 200 ml Exam nad no mrg lungs clear abd still diffusely ttp though less so than yesterday no rashes Results Result Diagram: 01/11/17 0556 01/10/17 0644 Results 24 hrs Laboratory Tests Test 01/10/17 13:55 01/10/17 18:25 01/11/17 05:56 White Blood Count 9.0 10.2 Red Blood Count 4.68 L 4.54 L Hemoglobin 13.8 L 13.5 L 13.4 L Hematocrit 41.1 L 40.6 L 39.6 L Mean Corpuscular Volume 87.8 87.2 Mean Corpuscular Hemoglobin 29.5 29.5 Mean Corpuscular Hemoglobin Concent 33.6 33.8 Red Cell Distribution Width 15.1 H 15.0 H Platelet Count 261 260 Mean Platelet Volume 9.7 10.2 Neutrophils % 73.2 73.7 Lymphocytes % 17.4 16.3 Monocytes % 8.2 8.5 Eosinophils % 0.6 0.7 Basophils % 0.3 0.3 Nucleated Red Blood Cells % 0.0 0.0 Neutrophils # 6.6 7.5 Lymphocytes # 1.6 1.7 Monocytes # 0.7 0.9 Eosinophils # 0.1 0.1 Basophils # 0.0 0.0 Nucleated Red Blood Cells # 0.0 0.0 Medications Medications Current Medications Ondansetron HCl (Zofran Inj) 4 mg Q6H PRN IV NAUSEA AND/OR VOMITING; Start at 23:30 Morphine Sulfate (morphine) 4 mg Q4H PRN IV PAIN LEVEL 7-10 Last administered on 01/10/17 23:08; Admin Dose 4 MG; Start 01/10/17 at 05:00 Atorvastatin Calcium (Lipitor) 40 mg QHS PO Last administered on 01/10/17 20: 51; Admin Dose 40 MG; Start 01/10/17 at 21:00 Carvedilol (Coreg) 3.125 mg BID PO Last administered on 01/11/17 08:11; Admin Dose 3.125 MG; Start 01/10/17 at 21:00 Acetaminophen/ Hydrocodone Bitart ([place] (10/325)) 1 tab Q8H PRN PO pain Last administered on 01/11/17 12:29; Admin Dose 1 TAB; Start 01/10/17 at 15:00 Lisinopril (Zestril) 2.5 mg DAILY PO Last administered on 01/11/17 08:12; Admin Dose 2.5 MG; Start 01/11/17 at 09:00 Oxycodone/ Acetaminophen (Endocet (10/ 325)) 1 tab Q4H PRN PO PAIN; Start 01/10 at 15:00 Pantoprazole (Protonix Tab) 40 mg DAILY@06 PO Last administered on 01/11/17 05 :17; Admin Dose 40 MG; Start 01/11/17 at 06:00 Mirtazapine (Remeron) 45 mg QHS PO Last administered on 01/10/17 20:51; Admin Dose 45 MG; Start 01/10/17 at 21:00 DIANELYS DUMAS MD Jan 11, 2017 13:24
--- NOTE | 2017-01-11 14:36 | PN ---
Date/Time of Note Date/Time of Note DATE: 01/11/17 TIME: 14:07 Assessment/Plan VTE Prophylaxis VTE Prophylaxis Intervention: ambulation Lines/Catheters IV [facility] Saline Lock Urinary Cath still in place: No Assessment/Plan Chief Complaint/Hosp Course Assessment: Hematemesis - resolved Gastritis versus esophagitis Cholecystitis with gallbladder sludge Hepatocellular carcinoma Portal vein thrombosis HTN Coronary disease/atherosclerosis Psychiatric disorders Plan: Continue H/H Continue PPI therapy Continue antiemetic therapy Continue pain management If patient continues having symptoms schedule EGD on Friday Patient seen in collaboration with Dr. Cameron Subjective: Doing much better today. No more vomiting. Mild nausea. Patient has been complaining of generalized abdominal tenderness and moderate pain in the left upper quadrant. He is tolerating regular diet well. No bowel movement in the past 2 days. Given the symptoms consider EGD inpatient or outpatient. Plan of treatment discussed with the patient and nursing staff. Imaging and laboratory values reviewed. Will follow up tomorrow. PHYSICAL EXAMINATION: GENERAL: Well developed, well nourished, alert & oriented x 3, in no acute distress SKIN: No lesions, no stigmata chronic liver disease, no evidence of bleeding diathesis LYMPHATIC: No palpable lymphadenopathy. HEAD: Normocephalic, atraumatic, no tenderness. EYES: Pupils equal reactive to light and accommodation, full extraocular movements, sclera clear, non-icteric, no discharge. EARS/NOSE AND THROAT: Ears normal, nose normal, oropharynx normal, oral membranes well hydrated without lesions. NECK: Supple, no masses, thyroid normal, JVP within normal limits, carotids normal without bruits. CHEST: Inspection within normal limits. CARDIOVASCULAR: Heart: Regular rate and rhythm, no murmurs, gallops or rubs. Peripheral pulses present within normal limits, no cyanosis, clubbing or edemas. No pulsatile abdominal mass RESPIRATORY: Lungs clear to auscultation and percussion, no wheezing, no rubs GASTROINTESTINAL AND LIVER: Abdomen: Soft, generalized tenderness with moderate pain in the left upper quadrant, non-distended, no hernias, no masses, no organomegaly, no ascites, no guarding, no rebound tenderness, normoactive bowel sounds. Rectal: Deferred. GENITOURINARY: [Male genitalia within normal limits. EXTREMITIES: No cyanosis, clubbing or edema. Problems: Exam/Review of Systems Vital Signs Vitals Vital Signs Date Time Temp Pulse Resp B/P Pulse Ox O2 Delivery O2 Flow Rate FiO2 01/11/17 12:05 63 01/11/17 11:57 98.0 18 128/79 98 01/10/17 00:55 Room Air Intake and Output 01/10/17 01/10/17 01/11/17 14:59 22:59 06:59 Intake Total 50 ml 1000 ml Output Total 1250 ml 800 ml Balance -1200 ml 200 ml Results Result Diagram: 01/11/17 0556 01/10/17 0644 Results 24 hrs Laboratory Tests Test 01/10/17 18:25 01/11/17 05:56 Hemoglobin 13.5 L 13.4 L Hematocrit 40.6 L 39.6 L White Blood Count 10.2 Red Blood Count 4.54 L Mean Corpuscular Volume 87.2 Mean Corpuscular Hemoglobin 29.5 Mean Corpuscular Hemoglobin Concent 33.8 Red Cell Distribution Width 15.0 H Platelet Count 260 Mean Platelet Volume 10.2 Neutrophils % 73.7 Lymphocytes % 16.3 Monocytes % 8.5 Eosinophils % 0.7 Basophils % 0.3 Nucleated Red Blood Cells % 0.0 Neutrophils # 7.5 Lymphocytes # 1.7 Monocytes # 0.9 Eosinophils # 0.1 Basophils # 0.0 Nucleated Red Blood Cells # 0.0 Medications Medications Current Medications Ondansetron HCl (Zofran Inj) 4 mg Q6H PRN IV NAUSEA AND/OR VOMITING; Start at 23:30 Morphine Sulfate (morphine) 4 mg Q4H PRN IV PAIN LEVEL 7-10 Last administered on 01/10/17 23:08; Admin Dose 4 MG; Start 01/10/17 at 05:00 Atorvastatin Calcium (Lipitor) 40 mg QHS PO Last administered on 01/10/17 20: 51; Admin Dose 40 MG; Start 01/10/17 at 21:00 Carvedilol (Coreg) 3.125 mg BID PO Last administered on 01/11/17 08:11; Admin Dose 3.125 MG; Start 01/10/17 at 21:00 Acetaminophen/ Hydrocodone Bitart ([place] (10/325)) 1 tab Q8H PRN PO pain Last administered on 01/11/17 12:29; Admin Dose 1 TAB; Start 01/10/17 at 15:00 Lisinopril (Zestril) 2.5 mg DAILY PO Last administered on 01/11/17 08:12; Admin Dose 2.5 MG; Start 01/11/17 at 09:00 Oxycodone/ Acetaminophen (Endocet (10/ 325)) 1 tab Q4H PRN PO PAIN; Start 01/10 at 15:00 Pantoprazole (Protonix Tab) 40 mg DAILY@06 PO Last administered on 01/11/17 05 :17; Admin Dose 40 MG; Start 01/11/17 at 06:00 Mirtazapine (Remeron) 45 mg QHS PO Last administered on 01/10/17 20:51; Admin Dose 45 MG; Start 01/10/17 at 21:00 DONNA JASMINE NP Jan 11, 2017 14:36
[2017-01-11] MEDS: OXYCODONE/ACETAMINOPHEN (10/325) TAB PO PRN (18:37)
[2017-01-11] MEDS: ATORVASTATIN 40 MG TAB PO SCH (21:04)
[2017-01-11] MEDS: MIRTAZAPINE 15 MG TAB PO SCH (21:04)
[2017-01-12 02:53] VITALS: BP 133/76; RESP 16
[2017-01-12] MEDS: PANTOPRAZOLE (EC) 40 MG TAB PO SCH (05:14)
[2017-01-12] MEDS: HYDROCODONE/APAP (10/325) TAB PO PRN (05:15)
[2017-01-12 07:27] VITALS: BP 126/74; RESP 16
[2017-01-12] MEDS: LISINOPRIL 5 MG TAB PO SCH (08:30)
[2017-01-12] MEDS: OXYCODONE/ACETAMINOPHEN (10/325) TAB PO PRN ×3 (11:00→22:18)
[2017-01-12 14:16] VITALS: BP 126/84; RESP 16
--- NOTE | 2017-01-12 16:14 | PN ---
Date/Time of Note Date/Time of Note DATE: 01/12/17 TIME: 16:13 Assessment/Plan VTE Prophylaxis VTE Prophylaxis Intervention: SCD's Lines/Catheters IV Catheter Type (from Nrsg): Saline Lock Urinary Cath still in place: No Assessment/Plan Assessment/Plan 51 yo M with HCC complicated by portal vein thrombosis (not a transplant candidate) again here with intractable abd pain this time complicated by hematemesis. RESOLVED PLAN GI on consult Consider MW tear from vomiting 2/2 pain? cont pain control --> pain management consult given this is pt's 3rd admit in4 weeks for abd pain most likely 2/2 his HCC. note pending cont asa for PVT ADAT discharge pending GI clearance, PO tolerance, clarification of pain regimen Subjective 24 Hr Interval Summary Free Text/Dictation seen ambulating in the halls, states pain is a little better Exam/Review of Systems Vital Signs Vitals Vital Signs Date Time Temp Pulse Resp B/P Pulse Ox O2 Delivery O2 Flow Rate FiO2 01/12/17 14:16 98.2 88 16 126/84 96 01/10/17 00:55 Room Air Intake and Output 01/11/17 01/11/17 01/12/17 14:59 22:59 06:59 Intake Total 470 ml Output Total 400 ml Balance 70 ml Exam nad no mrg abd nondistended no rashes no edema Results Result Diagram: 01/11/17 0556 01/10/17 0644 Medications Medications Current Medications Ondansetron HCl (Zofran Inj) 4 mg Q6H PRN IV NAUSEA AND/OR VOMITING; Start at 23:30 Morphine Sulfate (morphine) 4 mg Q4H PRN IV PAIN LEVEL 7-10 Last administered on 01/10/17 23:08; Admin Dose 4 MG; Start 01/10/17 at 05:00 Atorvastatin Calcium (Lipitor) 40 mg QHS PO Last administered on 01/11/17 21: 04; Admin Dose 40 MG; Start 01/10/17 at 21:00 Carvedilol (Coreg) 3.125 mg BID PO Last administered on 01/12/17 08:30; Admin Dose 3.125 MG; Start 01/10/17 at 21:00 Acetaminophen/ Hydrocodone Bitart ([place] (10/325)) 1 tab Q8H PRN PO pain Last administered on 01/12/17 05:15; Admin Dose 1 TAB; Start 01/10/17 at 15:00 Lisinopril (Zestril) 2.5 mg DAILY PO Last administered on 01/12/17 08:30; Admin Dose 2.5 MG; Start 01/11/17 at 09:00 Oxycodone/ Acetaminophen (Endocet (10/ 325)) 1 tab Q4H PRN PO PAIN Last administered on 01/12/17 11:00; Admin Dose 1 TAB; Start 01/10/17 at 15:00 Pantoprazole (Protonix Tab) 40 mg DAILY@06 PO Last administered on 01/12/17 05 :14; Admin Dose 40 MG; Start 01/11/17 at 06:00 Mirtazapine (Remeron) 45 mg QHS PO Last administered on 01/11/17 21:04; Admin Dose 45 MG; Start 01/10/17 at 21:00 DIANELYS DUMAS MD Jan 12, 2017 16:14
--- NOTE | 2017-01-12 17:00 | PN ---
Date/Time of Note Date/Time of Note DATE: 01/12/17 TIME: 16:40 Assessment/Plan VTE Prophylaxis VTE Prophylaxis Intervention: ambulation Lines/Catheters [facility] Saline Lock Urinary Cath still in place: No Assessment/Plan Chief Complaint/Hosp Course Assessment: Hematemesis - resolved Gastritis versus esophagitis Cholecystitis with gallbladder sludge Hepatocellular carcinoma Portal vein thrombosis HTN Coronary disease/atherosclerosis Psychiatric disorders Plan: EGD on Friday for gastric pain Continue H/H Continue PPI therapy Continue antiemetic therapy Continue pain management Patient seen in collaboration with Dr. Cameron Subjective: Patient continues having moderate epigastric pain 6-8 out of 10 controlled with Endocet. Denies nausea and vomiting Upon the exam patient has pain in the epigastric area. He is tolerating regular diet well. Plan of treatment discussed with the patient and nursing staff. Risk and benefits of procedure have been explained. Patient and his family are in agreement with the treatment plan. laboratory values reviewed. PHYSICAL EXAMINATION: GENERAL: Well developed, well nourished, alert & oriented x 3, in no acute distress SKIN: No lesions, no stigmata chronic liver disease, no evidence of bleeding diathesis LYMPHATIC: No palpable lymphadenopathy. HEAD: Normocephalic, atraumatic, no tenderness. EYES: Pupils equal reactive to light and accommodation, full extraocular movements, sclera clear, non-icteric, no discharge. EARS/NOSE AND THROAT: Ears normal, nose normal, oropharynx normal, oral membranes well hydrated without lesions. NECK: Supple, no masses, thyroid normal, JVP within normal limits, carotids normal without bruits. CHEST: Inspection within normal limits. CARDIOVASCULAR: Heart: Regular rate and rhythm, no murmurs, gallops or rubs. Peripheral pulses present within normal limits, no cyanosis, clubbing or edemas. No pulsatile abdominal mass RESPIRATORY: Lungs clear to auscultation and percussion, no wheezing, no rubs GASTROINTESTINAL AND LIVER: Abdomen: Soft, mid epigastric tenderness, non- distended, no hernias, no masses, no organomegaly, no ascites, no guarding, no rebound tenderness, normoactive bowel sounds. Rectal: Deferred. GENITOURINARY: [Male genitalia within normal limits. EXTREMITIES: No cyanosis, clubbing or edema. Problems: Exam/Review of Systems Vital Signs Vitals Vital Signs Date Time Temp Pulse Resp B/P Pulse Ox O2 Delivery O2 Flow Rate FiO2 01/12/17 14:16 98.2 88 16 126/84 96 01/10/17 00:55 Room Air Intake and Output 01/11/17 01/11/17 01/12/17 15:00 23:00 07:00 Intake Total 470 ml Output Total 400 ml Balance 70 ml Results Result Diagram: 01/11/17 0556 01/10/17 0644 Medications Medications Current Medications Ondansetron HCl (Zofran Inj) 4 mg Q6H PRN IV NAUSEA AND/OR VOMITING; Start at 23:30 Morphine Sulfate (morphine) 4 mg Q4H PRN IV PAIN LEVEL 7-10 Last administered on 01/10/17 23:08; Admin Dose 4 MG; Start 01/10/17 at 05:00 Atorvastatin Calcium (Lipitor) 40 mg QHS PO Last administered on 01/11/17 21: 04; Admin Dose 40 MG; Start 01/10/17 at 21:00 Carvedilol (Coreg) 3.125 mg BID PO Last administered on 01/12/17 08:30; Admin Dose 3.125 MG; Start 01/10/17 at 21:00 Acetaminophen/ Hydrocodone Bitart ([place] (10/325)) 1 tab Q8H PRN PO pain Last administered on 01/12/17 05:15; Admin Dose 1 TAB; Start 01/10/17 at 15:00 Lisinopril (Zestril) 2.5 mg DAILY PO Last administered on 01/12/17 08:30; Admin Dose 2.5 MG; Start 01/11/17 at 09:00 Oxycodone/ Acetaminophen (Endocet (10/ 325)) 1 tab Q4H PRN PO PAIN Last administered on 01/12/17 16:15; Admin Dose 1 TAB; Start 01/10/17 at 15:00 Pantoprazole (Protonix Tab) 40 mg DAILY@06 PO Last administered on 01/12/17 05 :14; Admin Dose 40 MG; Start 01/11/17 at 06:00 Mirtazapine (Remeron) 45 mg QHS PO Last administered on 01/11/17 21:04; Admin Dose 45 MG; Start 01/10/17 at 21:00 Copies To: CC: TRAMAINE CAMERON MD, ANASTASIA NP Jan 12, 2017 17:00
[2017-01-12 20:10] VITALS: BP 114/75; RESP 18
[2017-01-12] MEDS: ATORVASTATIN 40 MG TAB PO SCH (20:28)
[2017-01-12] MEDS: MIRTAZAPINE 15 MG TAB PO SCH (20:29)
[2017-01-13] VITALS (11 sets, daily range): BP systolic 102–120; BP diastolic 63–80; PULSE 80–88; RESP 18–28
[2017-01-13] MEDS: OXYCODONE/ACETAMINOPHEN (10/325) TAB PO PRN ×3 (03:35→20:11)
[2017-01-13 05:30] LABS: BASOPHIL # 0.1 10^3/ul (0.0-0.1); BASOPHILS % 0.6 % (0.0-2.0); EOSINOPHILS # 0.2 10^3/ul (0.0-0.5); EOSINOPHILS % 1.6 % (0.0-7.0); HEMATOCRIT 39.6 % (42.0-52.0); HEMOGLOBIN 13.6 g/dl (14.0-18.0); LYMPHOCYTES # 1.8 10^3/ul (0.8-2.9); LYMPHOCYTES % 18.2 % (15.0-51.0); MEAN CORPUSCULAR HEMOGLOBIN 29.8 pg (29.0-33.0); MEAN CORPUSCULAR HGB CONC 34.3 g/dl (32.0-37.0); MEAN CORPUSCULAR VOLUME 86.7 fl (82.0-101.0); MEAN PLATELET VOLUME 10.3 fl (7.4-10.4); MONOCYTE # 1.1 10^3/ul (0.3-0.9); MONOCYTES % 11.5 % (0.0-11.0); NEUTROPHIL # 6.5 10^3/ul (1.6-7.5); NEUTROPHILS % 67.5 % (39.0-77.0); PLATELET COUNT 253 10^3/UL (140-415); RED BLOOD COUNT 4.57 10^6/ul (4.70-6.10); RED CELL DISTRIBUTION WIDTH 14.6 % (11.5-14.5); WHITE BLOOD COUNT 9.7 10^3/ul (4.8-10.8)
[2017-01-13] MEDS: PANTOPRAZOLE (EC) 40 MG TAB PO SCH ×2 (05:32→20:10)
[2017-01-13] MEDS: LISINOPRIL 5 MG TAB PO SCH (08:44)
[2017-01-13] MEDS: morphine 4 MG/ML VIAL IV PRN ×3 (10:20→18:49)
--- NOTE | 2017-01-13 15:58 | PN ---
Date/Time of Note Date/Time of Note DATE: 01/13/17 TIME: 15:54 Assessment/Plan VTE Prophylaxis VTE Prophylaxis Intervention: SCD's Lines/Catheters IV Catheter Type (from [facility] [place]): Saline Lock Urinary Cath still in place: No Assessment/Plan Chief Complaint/Hosp Course Assessment and plan 1. Reported hematemesis. No further reports of this at this time. Tentative plan for endoscopy. Will follow. Monitor H&H. 2. History of hepatocellular carcinoma with previous TACE procedure patient for outpatient follow-up for this. Monitor for now. 3. Essential hypertension. Continue antihypertensives and adjust as needed. 4. History of psychiatric disorder. Continue on Remeron Disposition plan: Tentative plan for EGD. Continue with analgesics. Discussed plan of care with Dr. Maldonado Problems: Subjective 24 Hr Interval Summary Free Text/Dictation Reports having some right upper quadrant abdominal pain. Reports good control with opiate analgesic. Exam/Review of Systems Vital Signs Vitals Vital Signs Date Time Temp Pulse Resp B/P Pulse Ox O2 Delivery O2 Flow Rate FiO2 01/13/17 14:27 97.8 77 18 108/73 93 01/10/17 00:55 Room Air Intake and Output 01/12/17 01/12/17 01/13/17 15:00 23:00 07:00 Intake Total 1760 ml 600 ml Balance 1760 ml 600 ml Exam Constitutional: alert, oriented Psych: nl mood/affect Head: normocephalic Eyes: nl conjunctiva Neck: non-tender, supple Respiratory: clear to auscultation Cardiovascular: nl pulses, regular rate and rhythm Gastrointestinal: nl liver, spleen, soft Musculoskeletal: nl extremities to inspection Neurological: PUBLIC HEALTH SANITARIAN II-XII intact, nl mental status Skin: nl turgor Results Result Diagram: 01/13/17 0459 01/10/17 0644 Results 24 hrs Laboratory Tests Test 01/13/17 04:59 White Blood Count 9.7 Red Blood Count 4.57 L Hemoglobin 13.6 L Hematocrit 39.6 L Mean Corpuscular Volume 86.7 Mean Corpuscular Hemoglobin 29.8 Mean Corpuscular Hemoglobin Concent 34.3 Red Cell Distribution Width 14.6 H Platelet Count 253 Mean Platelet Volume 10.3 Neutrophils % 67.5 Lymphocytes % 18.2 Monocytes % 11.5 H Eosinophils % 1.6 Basophils % 0.6 Nucleated Red Blood Cells % 0.0 Neutrophils # 6.5 Lymphocytes # 1.8 Monocytes # 1.1 H Eosinophils # 0.2 Basophils # 0.1 Nucleated Red Blood Cells # 0.0 Medications Medications Current Medications Ondansetron HCl (Zofran Inj) 4 mg Q6H PRN IV NAUSEA AND/OR VOMITING; Start at 23:30 Morphine Sulfate (morphine) 4 mg Q4H PRN IV PAIN LEVEL 7-10 Last administered on 01/13/17 15:08; Admin Dose 4 MG; Start 01/10/17 at 05:00 Atorvastatin Calcium (Lipitor) 40 mg QHS PO Last administered on 01/12/17 20: 28; Admin Dose 40 MG; Start 01/10/17 at 21:00 Carvedilol (Coreg) 3.125 mg BID PO Last administered on 01/13/17 08:45; Admin Dose 3.125 MG; Start 01/10/17 at 21:00 Acetaminophen/ Hydrocodone Bitart ([place] (10/325)) 1 tab Q8H PRN PO pain Last administered on 01/12/17 05:15; Admin Dose 1 TAB; Start 01/10/17 at 15:00 Lisinopril (Zestril) 2.5 mg DAILY PO Last administered on 01/13/17 08:44; Admin Dose 2.5 MG; Start 01/11/17 at 09:00 Oxycodone/ Acetaminophen (Endocet (10/ 325)) 1 tab Q4H PRN PO PAIN Last administered on 01/13/17 08:44; Admin Dose 1 TAB; Start 01/10/17 at 15:00 Pantoprazole (Protonix Tab) 40 mg DAILY@06 PO Last administered on 01/13/17 05 :32; Admin Dose 40 MG; Start 01/11/17 at 06:00 Mirtazapine (Remeron) 45 mg QHS PO Last administered on 01/12/17 20:29; Admin Dose 45 MG; Start 01/10/17 at 21:00 EASTON ROBB Jan 13, 2017 15:58
--- NOTE | 2017-01-13 17:25 | OPPN ---
Date/Time of Note Date/Time of Note DATE: 01/13/17 TIME: 17:22 Proc Note GI Procedure Date 01/13/17 Indication: other (Abdominal pain) Pre-procedure Diagnosis Abdominal pain Post-procedure Diagnosis Impression: Grade I-II/IV esophageal varices Significant amounts of bile retained in the stomach Severe gastritis probably bile reflux induced. Rule out H. pylori infection. Biopsies obtained Plan: Increase PPI to twice daily Add Carafate and Reglan every 6 hours Review pathology . Procedure Performed: Endoscopy (With biopsies) Surgeon TRAMAINE GANN MD See signature line Radar Systems Engineer none Anesthesia Type: MAC Anesthesiologist: ADELAIDE KING Tourniquet Time none EBL none Transfusion required none Biopsy 1: Gastric body and antrum Grafts/Implants none Tubes/Drains none Complication(s) none Disposition: PACU Procedure Description After informed consent, with the patient/relatives understanding the procedure, its indications, potential risks and complications, including but not limited to : allergic reaction, bleeding, perforation or infection, and after all pertinent questions were answered to the patients satisfaction, the patient/ relatives signed witnessed informed consent. Following this, premedication was administered slowly IV push under careful cardiovascular and respiratory monitoring with pulse oximetry, automatic blood pressure, and playground monitor. Once the sedative effect was achieved the patient was place in the left lateral decubitus, the panendoscope was introduced and advanced under visual control. Careful examination of the upper gastrointestinal tract, both on insertion as well as withdrawal of the instrument disclosing the following findings: ESOPHAGUS: the mucosa of the entire esophagus was carefully examined and showed the following findings: There are grade I-II/IV esophageal varices. Otherwise the mucosa appears within normal limits. There is no evidence of esophagitis, neoplasm, or stricture. No Hiatal Hernia identified. STOMACH: Upon entrance to the stomach air was insufflated, the gastric gomez distended normally. The mucosa of the fundus, body and antrum of the stomach was carefully examined both head-on and on retroflexion, and showed the following findings: There is large amounts of bile retained in the stomach. The area mucosa of the body and antrum the stomach shows severe erythema edema and superficial erosion of the mucosa. Biopsies were obtained to rule out interval infection. Otherwise the mucosa appears within normal limits with no abnormalities. There is no evidence of ulcers or neoplasm. PYLORUS: The pylorus was carefully examined and showed the following findings: the pylorus appears patent and within normal limits, with no evidence of gastric outlet obstruction. DUODENUM: The duodenal mucosa was carefully examined in the duodenal bulb as well as the second portion of the duodenum and showed the following findings: the mucosa appears unremarkable with no evidence of duodenitis, ulcer or neoplasm. Copies To: CC: TRAMAINE GANN MD, MORDO MD Jan 13, 2017 17:25
--- NOTE | 2017-01-13 17:26 | HPN ---
Date/Time of Note Date/Time of Note DATE: 01/13/17 TIME: 17:25 Interval H&P Admission Note Pt. seen H&P reviewed: No system changes TRAMAINE GANN MD Jan 13, 2017 17:26
[2017-01-13] MEDS: METOCLOPRAMIDE 10 MG TAB PO SCH ×2 (18:49→23:58)
[2017-01-13] MEDS: SUCRALFATE 1 GM TAB PO SCH ×2 (18:49→20:10)
[2017-01-13] MEDS: ATORVASTATIN 40 MG TAB PO SCH (20:09)
[2017-01-13] MEDS: MIRTAZAPINE 15 MG TAB PO SCH (20:11)
[2017-01-14] MEDS: OXYCODONE/ACETAMINOPHEN (10/325) TAB PO PRN ×4 (00:01→15:55)
[2017-01-14 02:21] VITALS: BP 116/76; RESP 18
[2017-01-14] MEDS: METOCLOPRAMIDE 10 MG TAB PO SCH ×2 (05:24→11:55)
[2017-01-14] MEDS: morphine 4 MG/ML VIAL IV PRN ×2 (05:42→11:54)
[2017-01-14 07:34] VITALS: BP 127/87; RESP 18
[2017-01-14] MEDS: SUCRALFATE 1 GM TAB PO SCH ×2 (07:59→11:55)
[2017-01-14] MEDS: PANTOPRAZOLE (EC) 40 MG TAB PO SCH (08:00)
[2017-01-14] MEDS: LISINOPRIL 5 MG TAB PO SCH (08:00)
[2017-01-14] MEDS ORDERED: PANT40TA4 PO (13:47)
[2017-01-14] MEDS ORDERED: OXYC5CAP17 PO (13:47)
[2017-01-14] MEDS ORDERED: METO10TA96 PO (13:47)
[2017-01-14] MEDS ORDERED: SUCR1TAB27 PO (13:47)
[2017-01-14 14:09] VITALS: BP 119/79; RESP 18
--- NOTE | 2017-01-14 15:22 | PN ---
Date/Time of Note Date/Time of Note DATE: 01/14/17 TIME: 15:15 Assessment/Plan VTE Prophylaxis VTE Prophylaxis Intervention: ambulation Lines/Catheters IV [facility]from [facility] Saline Lock Urinary Cath still in place: No Assessment/Plan Chief Complaint/Hosp Course Assessment: Hematemesis - resolved Gastritis s/p EGD Impression: Grade I-II/IV esophageal varices Significant amounts of bile retained in the stomach Severe gastritis probably bile reflux induced. Rule out H. pylori infection. Cholecystitis with gallbladder sludge Hepatocellular carcinoma Portal vein thrombosis HTN Coronary disease/atherosclerosis Psychiatric disorders Plan: Continue PPI and Carafate Reglan every 6 hours Pathology pending Pending discharge today Patient seen in collaboration with Dr. Cameron Subjective: Patient is feeling much better today. Results of EGD reviewed, treatment discussed and recommendations are given. laboratory values reviewed. Patient desires to receive a copy of his records. Will be discharged from the hospital today for outpatient management. Patient will follow up with his PCP and province archivist PHYSICAL EXAMINATION: GENERAL: Well developed, well nourished, alert & oriented x 3, in no acute distress SKIN: No lesions, no stigmata chronic liver disease, no evidence of bleeding diathesis LYMPHATIC: No palpable lymphadenopathy. HEAD: Normocephalic, atraumatic, no tenderness. EYES: Pupils equal reactive to light and accommodation, full extraocular movements, sclera clear, non-icteric, no discharge. EARS/NOSE AND THROAT: Ears normal, nose normal, oropharynx normal, oral membranes well hydrated without lesions. NECK: Supple, no masses, thyroid normal, JVP within normal limits, carotids normal without bruits. CHEST: Inspection within normal limits. CARDIOVASCULAR: Heart: Regular rate and rhythm, no murmurs, gallops or rubs. Peripheral pulses present within normal limits, no cyanosis, clubbing or edemas. No pulsatile abdominal mass RESPIRATORY: Lungs clear to auscultation and percussion, no wheezing, no rubs GASTROINTESTINAL AND LIVER: Abdomen: Soft, no tenderness, non-distended, no hernias, no masses, no organomegaly, no ascites, no guarding, no rebound tenderness, normoactive bowel sounds. Rectal: Deferred. GENITOURINARY: [Male genitalia within normal limits. EXTREMITIES: No cyanosis, clubbing or edema. Problems: Exam/Review of Systems Vital Signs Vitals Vital Signs Date Time Temp Pulse Resp B/P Pulse Ox O2 Delivery O2 Flow Rate FiO2 01/14/17 14:09 98.3 90 18 119/79 94 01/13/17 18:04 Room Air Intake and Output 01/13/17 01/13/17 01/14/17 14:59 22:59 06:59 Intake Total 240 ml 300 ml Balance 240 ml 300 ml Results Result Diagram: 01/13/17 0459 01/10/17 0644 Medications Medications Current Medications Ondansetron HCl (Zofran Inj) 4 mg Q6H PRN IV NAUSEA AND/OR VOMITING; Start at 23:30 Morphine Sulfate (morphine) 4 mg Q4H PRN IV PAIN LEVEL 7-10 Last administered on 01/14/17 11:54; Admin Dose 4 MG; Start 01/10/17 at 05:00 Atorvastatin Calcium (Lipitor) 40 mg QHS PO Last administered on 01/13/17 20: 09; Admin Dose 40 MG; Start 01/10/17 at 21:00 Carvedilol (Coreg) 3.125 mg BID PO Last administered on 01/14/17 08:01; Admin Dose 3.125 MG; Start 01/10/17 at 21:00 Acetaminophen/ Hydrocodone Bitart ([place] (10/325)) 1 tab Q8H PRN PO pain Last administered on 01/12/17 05:15; Admin Dose 1 TAB; Start 01/10/17 at 15:00 Lisinopril (Zestril) 2.5 mg DAILY PO Last administered on 01/14/17 08:00; Admin Dose 2.5 MG; Start 01/11/17 at 09:00 Oxycodone/ Acetaminophen (Endocet (10/ 325)) 1 tab Q4H PRN PO PAIN Last administered on 01/14/17 07:59; Admin Dose 1 TAB; Start 01/10/17 at 15:00 Mirtazapine (Remeron) 45 mg QHS PO Last administered on 01/13/17 20:11; Admin Dose 45 MG; Start 01/10/17 at 21:00 Pantoprazole (Protonix Tab) 40 mg BID PO Last administered on 01/14/17 08:00; Admin Dose 40 MG; Start 01/13/17 at 21:00 Sucralfate (Carafate) 1 gm QID PO Last administered on 01/14/17 11:55; Admin Dose 1 GM; Start 01/13/17 at 17:30 Metoclopramide HCl (Reglan) 10 mg Q6 PO Last administered on 01/14/17 11:55; Admin Dose 10 MG; Start 01/13/17 at 18:00 Copies To: CC: TRAMAINE CAMERON MD, ANASTASIA NP Jan 14, 2017 15:22
--- NOTE | 2017-01-14 15:29 | PDOCDIS ---
Discharge Instructions DIAGNOSIS Discharge Diagnosis 1. Reported hematemesis. 2. History of hepatocellular carcinoma with previous TACE procedure 3. Essential hypertension. 4. History of psychiatric disorder. HOME CARE INSTRUCTIONS: Diet Instructions: RegularSpecial Diet: regular diet ACTIVITY: Activity Restrictions: Slowly Increase Activity Rest between Activity Avoid heavy lifting Bathing Restrictions: Sponge Bath FOLLOW UP/APPOINTMENTS Follow-up Plan 1. Follow up with Dr. Du Cameron in one week 2. Follow up with your oncologist in one week EASTON ROBB Jan 14, 2017 15:29
== END 2017-01-14 16:50 | disposition home or self-care (01) | DRG 377 ==
LOC: E/R 18:39 → TEL 23:03 → MS2 01-11 20:50
PROVIDERS: ADMIT Family Medicine; ATTEND Family Medicine
PROC: 0DB78ZX Excision of Stomach, Pylorus, Via Natural or Artificial Opening Endoscopic, Diagnostic (ICD-10-PCS; 2017-01-13)
PROC: 0DB68ZX Excision of Stomach, Via Natural or Artificial Opening Endoscopic, Diagnostic (ICD-10-PCS; principal; 2017-01-13 20:20)
DX: K92.0 Hematemesis (principal); I81 Portal vein thrombosis; C22.0 Liver cell carcinoma; K70.9 Alcoholic liver disease, unspecified; I10 Essential (primary) hypertension; B18.2 Chronic viral hepatitis C; I85.10 Secondary esophageal varices without bleeding; K29.70 Gastritis, unspecified, without bleeding; E78.5 Hyperlipidemia, unspecified; F31.9 Bipolar disorder, unspecified; F20.9 Schizophrenia, unspecified; F41.9 Anxiety disorder, unspecified; F17.210 Nicotine dependence, cigarettes, uncomplicated; I25.10 Atherosclerotic heart disease of native coronary artery without angina pectoris; F10.10 Alcohol abuse, uncomplicated; K80.20 Calculus of gallbladder without cholecystitis without obstruction; Z79.82 Long term (current) use of aspirin
CPT/HCPCS: 74177; 80053; 82140; 83690; 83735; 84484; 85014; 85018; 85025; 85610; 85730; 86850; 86900; 86901; 88305; 88312; 96374; 96375; 96376; C9113; J1170; J2270; J2354; J2405; J7030; Q9967

== ENCOUNTER 2017-02-05 15:22 | Inpatient (IN) | END 2017-02-06 17:00 | disposition home or self-care (01) | DRG 391 ==